=== PATIENT | female | born 1940 | race Caucasian/White ===

== ENCOUNTER 2016-05-28 13:36 | Emergency (ER) | payer MEDICARE ==
--- NOTE | 2016-05-28 13:59 | ED ---
General Adult HPI - General Chief complaint: Arrhythmia/Palpitations Stated complaint: AFIB Time Seen by Provider: 05/28/16 13:56 Source: patient, family, EMS, RN notes reviewed, old records reviewed Mode of arrival: EMS Limitations: no limitations - History of Present Illness Initial comments: This is a 75-year-old female ER for evaluation of possible arrhythmia. Patient doesn't history of high blood pressure, prediabetes, no history of smoking, no history of stroke, patient coming in today withno complaints no chest pain the first of breath no palpitations. Patient states she has history of atrial premature beats, PACs, patient states she was sent in today after surgery and reevaluation regarding possible arrhythmia seen on rhythm strip at her ear nose and throat doctor's office. Again at this time patient remains without complaint, not on any new medications and has not stopped taking any of her prior medication - Related Data Home Medications Medication Instructions Recorded Confirmed Aspirin EC [Ecotrin Low Dose] 81 mg PO DAILY 05/28/16 05/28/16 Calcium Carbonate [Calcium] 600 mg PO DAILY 05/28/16 05/28/16 Cholecalciferol [Vitamin D3] 2,000 unit PO DAILY 05/28/16 05/28/16 Chromium Picolinate 200 mcg PO DAILY 05/28/16 05/28/16 Cinnamon Bark [Cinnamon] 500 mg PO DAILY 05/28/16 05/28/16 Cinthya-C With Bioflavonoids 1 tab PO DAILY 05/28/16 05/28/16 Lisinopril-Hctz 10-12.5 mg 1 tab PO DAILY 05/28/16 05/28/16 [Zestoretic 10-12.5] Lutein 20 mg PO DAILY 05/28/16 05/28/16 Magnesium Oxide [Mag-Ox] 500 mg PO DAILY 05/28/16 05/28/16 Multivitamins, Thera [Multivitamin] 1 tab PO DAILY 05/28/16 05/28/16 PARoxetine [Paxil] 10 mg PO DAILY 05/28/16 05/28/16 Pravastatin Sodium [Pravachol] 40 mg PO DAILY 05/28/16 05/28/16 Allergies Allergy/AdvReac Type Severity Reaction Status Date / Time No Known Allergies Allergy Verified 05/28/16 14:12 Review of Systems ROS Statement: Those systems with pertinent positive or pertinent negative responses have been documented in the HPI. ROS Other: All systems not noted in ROS Statement are negative. Past Medical History Past Medical History: Hyperlipidemia, Hypertension Additional Past Medical History / Comment(s): PALPITATIONS-BBB History of Any Multi-Drug Resistant Organisms: None Reported Past Surgical History: Section Additional Past Surgical History / Comment(s): SINUS SURGERY, CARDIAC ABLATION FOR PVC Past Psychological History: No Psychological Hx Reported Smoking Status: Never smoker Past Alcohol Use History: None Reported Past Drug Use History: None Reported General Exam Limitations: no limitations General appearance: alert, in no apparent distress Head exam: Present: atraumatic, normocephalic, normal inspection Eye exam: Present: normal appearance, PERRL, EOMI. Absent: scleral icterus, conjunctival injection, periorbital swelling ENT exam: Present: normal exam, mucous membranes moist Neck exam: Present: normal inspection. Absent: tenderness, meningismus, lymphadenopathy Respiratory exam: Present: normal lung sounds bilaterally. Absent: respiratory distress, wheezes, rales, rhonchi, stridor Cardiovascular Exam: Present: regular rate, normal rhythm, normal heart sounds. Absent: systolic murmur, diastolic murmur, rubs, gallop, clicks GI/Abdominal exam: Present: soft, normal bowel sounds. Absent: distended, tenderness, guarding, rebound, rigid Extremities exam: Present: normal inspection, full ROM, normal capillary refill. Absent: tenderness, pedal edema, joint swelling, calf tenderness Back exam: Present: normal inspection Neurological exam: Present: alert, oriented X3, CN II-XII intact Psychiatric exam: Present: normal affect, normal mood Skin exam: Present: warm, dry, intact, normal color. Absent: rash Course Vital Signs 05/28/16 13:42 Temperature 98.1 F Pulse Rate 64 Respiratory 20 Rate Blood Pressure 142/74 O2 Sat by Pulse 94 L Oximetry - Reevaluation(s) Reevaluation #1: 05/28/16 14:21 Patient remains completely asymptomatic Reevaluation #2: 05/28/16 14:21 Per patient's records patient was told she may have a flutter based on rhythm strip at ENT office EKG Findings - EKG Comments: EKG Findings:: EKG shows normal sinus rhythm rate of 70, AL 182, QRS 90, QTC 429 Medical Decision Making - Medical Decision Making 75. Urinalysis suspicious rhythm strip at her ENT appointment today. Patient has no complaints, storeroom is without complaint, her EKG here is normal, no A. fib or flutter, no arrhythmia, patient will be discharged to follow-up with cardiology Disposition Clinical Impression: Arrhythmia Disposition: HOME SELF-CARE Condition: Good Instructions: Palpitations (ED) Referrals: Goldie Nunez MD [STAFF PHYSICIAN] - 1-2 days
[2016-05-28 14:38] VITALS: PULSE 67
[2016-05-28 14:51] VITALS: BP 154/68; RESP 16; TEMP 97.1
== END 2016-05-28 14:50 | disposition home or self-care (01) ==
LOC: EC 13:36
DX: I49.9 Cardiac arrhythmia, unspecified (principal); I10 Essential (primary) hypertension; E78.5 Hyperlipidemia, unspecified; Z79.82 Long term (current) use of aspirin; Z79.899 Other long term (current) drug therapy
CPT/HCPCS: 93005; 99284

== ENCOUNTER 2017-04-26 06:57 | Day surgery (SDC) | payer MEDICARE ==
[2017-04-22 13:28] VITALS: BMI 22.4
[~2017-04-26 06:57] MED LIST: LACTATED RINGERS 1,000 ML IV SCH
[2017-04-26 07:29] VITALS: RESP 16; TEMP 97.2
[2017-04-26 07:31] LABS: Glucose,Whole Blood 92 mg/dL (75-99)
[2017-04-26] MEDS ORDERED: GLYCOPYRROLATE 0.2 MG/ML 2 ML VIAL ONE (07:50)
[2017-04-26] MEDS ORDERED: PROPOFOL 10 MG/ML 20 ML VIAL IV ONE (07:50)
[2017-04-26] MEDS ORDERED: GLUCAGON 1 MG/ML VIAL ONE (07:50)
--- NOTE | 2017-04-26 07:55 | P.GSHP ---
History of Present Illness H&P Date: 04/26/17 Chief Complaint: Screening colonoscopy, history of diverticulitis This is a 76-year-old female for from Dr. cordoba. Patient is today for screening colonoscopy. Patient history of diverticulitis. Past Medical History Past Medical History: Diabetes Mellitus, Hyperlipidemia, Hypertension Additional Past Medical History / Comment(s): PALPITATIONS-BBB. RECENT DX DIABETES-DIET CONTROL AT THIS TIME History of Any Multi-Drug Resistant Organisms: None Reported Past Surgical History: Cardiac Ablation, Section Additional Past Surgical History / Comment(s): SINUS SURGERY, CARDIAC ABLATION FOR PVC. COLONOSCOPY Past Anesthesia/Blood Transfusion Reactions: No Reported Reaction Smoking Status: Never smoker - Past Family History Mother Family Medical History: No Reported History Medications and Allergies Home Medications Medication Instructions Recorded Confirmed Type Aspirin EC [Ecotrin Low Dose] 81 mg PO DAILY 05/28/16 04/26/17 History Calcium Carbonate [Calcium] 600 mg PO DAILY 05/28/16 04/26/17 History Cholecalciferol [Vitamin D3] 2,000 unit PO DAILY 05/28/16 04/26/17 History Chromium Picolinate 200 mcg PO DAILY 05/28/16 04/26/17 History Cinnamon Bark [Cinnamon] 500 mg PO DAILY 05/28/16 04/26/17 History Lutein 20 mg PO DAILY 05/28/16 04/26/17 History Magnesium Oxide [Mag-Ox] 500 mg PO DAILY 05/28/16 04/26/17 History Multivitamins, Thera [Multivitamin] 1 tab PO DAILY 05/28/16 04/26/17 History PARoxetine [Paxil] 10 mg PO DAILY 05/28/16 04/26/17 History Pravastatin Sodium [Pravachol] 40 mg PO DAILY 05/28/16 04/26/17 History Lisinopril-Hctz 20-12.5 mg 1 tab PO DAILY 04/22/17 04/26/17 History [Zestoretic 20-12.5] amLODIPine [Norvasc] 2.5 mg PO DAILY 04/22/17 04/26/17 History Allergies Allergy/AdvReac Type Severity Reaction Status Date / Time No Known Allergies Allergy Verified 04/22/17 13:21 Surgical - Exam Vital Signs Temp Pulse Resp BP Pulse Ox 97.2 F L 47 L 16 169/75 99 04/26/17 07:21 04/26/17 07:21 04/26/17 07:21 04/26/17 07:21 04/26/17 07:21 - General well developed, no distress - Eyes PERRL - ENT normal pinna - Neck no masses - Respiratory normal expansion - Cardiovascular Rhythm: regular - Abdomen Abdomen: soft, non tender Assessment and Plan Assessment: We'll perform screening colonoscopy.
--- NOTE | 2017-04-26 08:28 | P.OP ---
Date of Procedure: 04/26/17 Preoperative Diagnosis: Diverticulitis Screening colonoscopy Postoperative Diagnosis: Dear diverticulosis of sigmoid and left colon Cecum not visualized Tortuous colon Implants: Colonoscopy Anesthesia: MAC Surgeon: Jason Mckay Pathology: none sent Condition: stable Disposition: PACU Description of Procedure: Patient's placed on the endoscopy table lateral position. She received IV sedation. Digital rectal exam was performed which revealed no abnormalities. Flexible colonoscope was then placed patient anus passed with colon. The colon was quite tortuous. The scope could not be placed in the cecum secondary to very tortuous bowel. Scope was withdrawn the transverse colon appeared normal. In the descending colon there was significant diverticular changes. In the sigmoid colon there is extensive diverticular changes without evidence of diverticular scarring of the sigmoid colon. Scope was then brought back the rectum and this appeared normal. The scope was withdrawn for patient.
[2017-04-26 09:15] VITALS: BP 160/70; PULSE 66
== END 2017-04-26 09:28 | disposition home or self-care (01) ==
LOC: ORWHC2ENDO 06:57
PROVIDERS: ATTEND Surgery
DX: Z12.11 Encounter for screening for malignant neoplasm of colon (principal); K63.89 Other specified diseases of intestine; K57.30 Diverticulosis of large intestine without perforation or abscess without bleeding; I49.1 Atrial premature depolarization; E11.9 Type 2 diabetes mellitus without complications; E78.5 Hyperlipidemia, unspecified; I10 Essential (primary) hypertension; Z79.82 Long term (current) use of aspirin; Z79.899 Other long term (current) drug therapy; Z87.19 Personal history of other diseases of the digestive system
CPT/HCPCS: G0121; J1610; J2704

== ENCOUNTER 2017-11-25 17:15 | Emergency (ER) | payer MEDICARE ==
[2017-11-25 17:42] VITALS: TEMP 98.6
[2017-11-25 19:57] VITALS: BP 198/74; PULSE 58; RESP 16
--- NOTE | 2017-11-25 20:20 | ED ---
General Adult HPI - General Chief complaint: Recheck/Abnormal Lab/Rx Stated complaint: Abnormal Labs Time Seen by Provider: 11/25/17 19:02 Source: patient Mode of arrival: ambulatory Limitations: no limitations - History of Present Illness Initial comments: Patient is a [age]-year-old female presenting for abnormal labs. Patient states that she sees an outside neurologist and that she has been worked up for polymyalgia rheumatica and that she has been decreased and steroids. She saw the neurologist today and states that the ESR was elevated to greater than 20 and the CRP was around 2 and was sent here for consideration for temporal arteritis. She denies any vision changes and her ophthalmologic exam was performed at the neurologist office today and noted to be negative for significant abnormalities. She states that she does currently have a headache which is not the worst headache of her life and that it is been going on for many years worsening over the last couple months. She states that the headache is an achy sensation in her forehead. - Related Data Home Medications Medication Instructions Recorded Confirmed Calcium Carbonate [Calcium] 1,200 mg PO DAILY 05/28/16 11/25/17 Cholecalciferol [Vitamin D3] 2,000 unit PO DAILY 05/28/16 11/25/17 Chromium Picolinate 200 mcg PO DAILY 05/28/16 11/25/17 Cinnamon Bark [Cinnamon] 500 mg PO DAILY 05/28/16 11/25/17 Lutein 20 mg PO DAILY 05/28/16 11/25/17 Multivitamins, Thera [Multivitamin 1 tab PO DAILY 05/28/16 11/25/17 (formulary)] PARoxetine [Paxil] 10 mg PO DAILY 05/28/16 11/25/17 Pravastatin Sodium [Pravachol] 40 mg PO HS 05/28/16 11/25/17 Lisinopril-Hctz 20-12.5 mg 1 tab PO DAILY 04/22/17 11/25/17 [Zestoretic 20-12.5] Magnesium Citrate 125 mg PO DAILY 05/17/17 11/25/17 Mk7 1 tab PO DAILY 05/17/17 11/25/17 Strontium 1 tab PO DAILY 05/17/17 11/25/17 Ubiquinol 100 mg PO DAILY 05/17/17 11/25/17 amLODIPine [Norvasc] 5 mg PO DAILY 05/17/17 11/25/17 Calcitonin Nasal [Fortical 1 spray NASAL DAILY 11/25/17 11/25/17 (Miacalcin)] Propylene Glycol/Peg 400 [Systane 1 drop BOTH EYES DAILY 11/25/17 11/25/17 Ultra 0.4-0.3% Eye Drp] Sodium Chloride 5% Ophth Oint 1 applic BOTH EYES DAILY 11/25/17 11/25/17 [Maris 128] predniSONE 2.5 mg PO DAILY 11/25/17 11/25/17 Previous Rx's Medication Instructions Recorded predniSONE 60 mg PO DAILY 5 Days #15 tab 11/25/17 Allergies Allergy/AdvReac Type Severity Reaction Status Date / Time No Known Allergies Allergy Verified 11/25/17 19:14 Review of Systems ROS Statement: Those systems with pertinent positive or pertinent negative responses have been documented in the HPI. Constitutional: Negative for chills, fatigue and fever. HENT: Negative for congestion. Respiratory: Negative for chest tightness, shortness of breath and wheezing. Negative for cough Cardiovascular: Negative for chest pain and palpitations. Gastrointestinal: Negative for abdominal pain. Negative for abdominal distention , diarrhea, nausea and vomiting. Genitourinary: Negative for dysuria. Musculoskeletal: Negative for back pain, neck pain and neck stiffness. Skin: Negative for color change. Neurological: Negative for dizziness, speech difficulty, weakness and light- headedness. Positive for headache Psychiatric/Behavioral: Negative for agitation and confusion. Negative for anxiety ROS Other: All systems not noted in ROS Statement are negative. Past Medical History Past Medical History: Diabetes Mellitus, Hyperlipidemia, Hypertension Additional Past Medical History / Comment(s): PALPITATIONS-BBB. polymyalgia rheumatica History of Any Multi-Drug Resistant Organisms: None Reported Past Surgical History: Cardiac Ablation, Section Additional Past Surgical History / Comment(s): SINUS SURGERY, CARDIAC ABLATION FOR PVC. COLONOSCOPY, removal of melanoma Past Anesthesia/Blood Transfusion Reactions: No Reported Reaction Past Psychological History: Anxiety Smoking Status: Never smoker Past Alcohol Use History: None Reported Past Drug Use History: None Reported - Past Family History Mother Family Medical History: No Reported History General Exam - General Exam Comments Initial Comments: Constitutional: Pt is oriented to person, place, and time. Pt appears well- developed and well-nourished. No distress. HENT: Head: Normocephalic and atraumatic. Eyes: EOM are normal. Pupils 3 mm bilaterally and reactive. Neck: Normal range of motion. Neck supple. Cardiovascular: Normal rate, regular rhythm, S1 normal, S2 normal and normal heart sounds. Exam reveals no gallop and no friction rub. No murmur heard. Pulmonary/Chest: Effort normal and breath sounds normal. No tachypnea and no bradypnea. No respiratory distress. No wheezes or rales noted. Abdominal: Soft. Bowel sounds are normal. Pt exhibits no shifting dullness, no distension, no pulsatile liver, no fluid wave, no abdominal bruit and no ascites. There is no tenderness. There is no rigidity, no rebound, no guarding, no tenderness at McBurney's point and negative Srinivasan's sign. Musculoskeletal: Normal range of motion. Neurological: Pt is alert and oriented to person, place, and time. No cranial nerve deficit. No tenderness to palpation of the temporal areas. Skin: Skin is warm and dry. No rash noted. Pt is not diaphoretic. No erythema. No pallor. Psychiatric: Pt has a normal mood and affect. Pt behavior is normal. Thought content normal. Limitations: no limitations Course Vital Signs 11/25/17 11/25/17 11/25/17 17:36 19:16 19:56 Temperature 98.6 F 98.6 F Pulse Rate 61 64 58 L Respiratory 18 18 16 Rate Blood Pressure 140/53 210/81 198/74 O2 Sat by Pulse 99 97 100 Oximetry Medical Decision Making - Medical Decision Making Case is discussed with the patient's neurologist, Dr. Scales, and it was mutually decided that the patient should be likely placed in observation. It is explained to the patient that this is the recommendation and that there is high enough suspicion for temporal arteritis and the long-term effects such as blindness that could result if the condition is not treated, that she should be placed in observation. However, patient was not agreeable to this decision and multiple attempts were made to reach the patient's shipping assistant. However, this could not be done and patient currently declined admission to hospital. Therefore the patient signed out AGAINST MEDICAL ADVICE and expressed understanding that leaving could result in , disability. Nonetheless, the patient was given a prescription for steroids so that she could begin treatment immediately. Patient was advised to return to emergency department if symptoms worsened and follow up with neurology/rheumatology in the next 1-2 days. Patient was agreeable plan. Disposition Clinical Impression: Headache, Elevated erythrocyte sedimentation rate, Elevated C-reactive protein (CRP), Hypertension Disposition: Left Against Medical Advice Condition: Good Prescriptions: predniSONE 60 mg PO DAILY 5 Days #15 tab Referrals: Luis Eduardo Villalba MD [Primary Care Provider] - 1-2 days Time of Disposition: 20:19
== END 2017-11-25 20:31 | disposition left against medical advice (07) ==
LOC: EC 17:15
DX: I10 Essential (primary) hypertension (principal); R70.0 Elevated erythrocyte sedimentation rate; R79.82 Elevated C-reactive protein (CRP); R51 Headache; E78.5 Hyperlipidemia, unspecified; F41.9 Anxiety disorder, unspecified; M35.3 Polymyalgia rheumatica; Z85.820 Personal history of malignant melanoma of skin; Z79.52 Long term (current) use of systemic steroids; Z79.899 Other long term (current) drug therapy; Z53.29 Procedure and treatment not carried out because of patient's decision for other reasons
CPT/HCPCS: 99283

== ENCOUNTER 2018-06-17 17:46 | Observation (INO) | payer MEDICARE ==
[2018-06-17] MEDS ORDERED: ASPIRIN 81 MG PO STA (18:09)
--- NOTE | 2018-06-17 18:12 | ED ---
Chest Pain HPI - General Chief Complaint: Chest Pain Stated Complaint: Chest pressure Time Seen by Provider: 06/17/18 17:56 Source: patient Mode of arrival: ambulatory Limitations: no limitations - History of Present Illness Initial Comments: Patient is a 77-year-old female presenting for chest pain. The patient states that the chest pressure started around noon it is been constant sensation without radiation or modifying factors. His is associated with nausea but no infectious type symptoms such as as fever or chills or coughing. She states that it is been several years since she had a cardiac catheterization and she has not had this pain before. - Related Data Home Medications Medication Instructions Recorded Confirmed Cinnamon Bark [Cinnamon] 500 mg PO DAILY 05/28/16 06/17/18 Lutein 10 mg PO BID 05/28/16 06/17/18 Multivitamins, Thera [Multivitamin 1 tab PO DAILY 05/28/16 06/17/18 (formulary)] PARoxetine [Paxil] 10 mg PO Q48H 05/28/16 06/17/18 Pravastatin Sodium [Pravachol] 40 mg PO HS 05/28/16 06/17/18 Lisinopril-Hctz 20-12.5 mg 1 tab PO DAILY 04/22/17 06/17/18 [Zestoretic 20-12.5] amLODIPine [Norvasc] 5 mg PO DAILY 05/17/17 06/17/18 Propylene Glycol/Peg 400 [Systane 1 drop BOTH EYES DAILY 11/25/17 06/17/18 Ultra 0.4-0.3% Eye Drp] Calcitonin Nasal [Fortical 1 spray EA NOSTRIL DAILY 06/17/18 06/17/18 (Miacalcin)] Calcium Citrate/Vitamin D3 1 tab PO BID 06/17/18 06/17/18 [Calcitrate + Vit D Caplet] Magnesium 200 mg PO DAILY 06/17/18 06/17/18 Allergies Allergy/AdvReac Type Severity Reaction Status Date / Time No Known Allergies Allergy Verified 06/17/18 18:13 Review of Systems ROS Statement: Those systems with pertinent positive or pertinent negative responses have been documented in the HPI. Constitutional: Negative for chills, fatigue and fever. HENT: Negative for congestion. Respiratory: Negative for chest tightness, shortness of breath and wheezing. Negative for cough Cardiovascular: Positive for chest pressure and palpitations. Gastrointestinal: Negative for abdominal pain. Negative for abdominal distention, diarrhea, and vomiting. Positive for nausea Genitourinary: Negative for dysuria. Musculoskeletal: Negative for back pain, neck pain and neck stiffness. Skin: Negative for color change. Neurological: Negative for dizziness, speech difficulty, weakness and light- headedness. Psychiatric/Behavioral: Negative for agitation and confusion. Negative for anxiety ROS Other: All systems not noted in ROS Statement are negative. EKG Findings - EKG Comments: EKG Findings:: EKG shows sinus bradycardia with a rate of 59 bpm, [place] interval 170, QRS 88, QTC 407. There are no significant ST depressions or elevations. Past Medical History Past Medical History: Diabetes Mellitus, Hyperlipidemia, Hypertension Additional Past Medical History / Comment(s): PALPITATIONS-BBB. polymyalgia rheumatica History of Any Multi-Drug Resistant Organisms: None Reported Past Surgical History: Cardiac Ablation, Section Additional Past Surgical History / Comment(s): SINUS SURGERY, CARDIAC ABLATION FOR PVC. COLONOSCOPY, removal of melanoma Past Anesthesia/Blood Transfusion Reactions: No Reported Reaction Past Psychological History: Anxiety Smoking Status: Never smoker Past Alcohol Use History: None Reported Past Drug Use History: None Reported - Past Family History Mother Family Medical History: No Reported History General Exam - General Exam Comments Initial Comments: Constitutional: Pt appears well-developed and well-nourished. No distress. Head: Normocephalic and atraumatic. Eyes: EOM are normal. Neck: Normal range of motion. Neck supple. Cardiovascular: Normal rate, regular rhythm, S1 normal, S2 normal and normal heart sounds. Exam reveals no gallop and no friction rub. No murmur heard. Pulmonary/Chest: Effort normal and breath sounds normal. No tachypnea and no bradypnea. No respiratory distress. No wheezes or rales noted. Abdominal: Soft. Bowel sounds are normal. Pt exhibits no shifting dullness, no distension, no pulsatile liver, no fluid wave, no abdominal bruit and no ascites. There is no rigidity, no rebound, no guarding, no tenderness at McBurney's point and negative Srinivasan's sign. There is no tenderness. Musculoskeletal: Normal range of motion. Neurological: Pt is alert and oriented to person, place, and time. No cranial nerve deficit. Skin: Skin is warm and dry. No rash noted. Pt is not diaphoretic. No erythema. No pallor. Psychiatric: Pt has a normal mood and affect. Pt behavior is normal. Thought content normal. Limitations: no limitations Course Vital Signs 06/17/18 17:52 Temperature 98.2 F Pulse Rate 64 Respiratory 18 Rate Blood Pressure 162/68 O2 Sat by Pulse 98 Oximetry Chest Pain MDM - MDM Laboratory studies showed that there was no significant leukocytosis, which like derangements and from a cardiac standpoint, EKG had no significant abnormalities and d-dimer and troponin were both negative. However, because of the patient's significant risk factors, is felt that the patient should be placed in observation for continued evaluation and treatment. The time of disposition, patient was well-appearing and in no acute distress.Explained all labs and diagnostic test results and that we will admit patient to hospital. Pt is agreeable to plan and case has been discussed with Dr. Irizarry and they agree to accept the pt. Disposition Clinical Impression: Chest pain Disposition: ADMITTED IP TO THIS HOSP Condition: Fair Referrals: Luis Eduardo Villalba MD [Primary Care Provider] - 1-2 days Decision to Admit Reason: Admit from EC Decision Date: 06/17/18 Decision Time: 20:07
[2018-06-17 18:50] LABS: Basophils # (A) 0.1 k/uL (0-0.2); Basophils % (A) 1 %; Eosinophils # (A) 0.2 k/uL (0-0.7); Eosinophils % (A) 3 %; HCT 39.4 % (34.0-46.0); HGB 13.1 gm/dL (11.4-16.0); Lymphocytes # (A) 2.2 k/uL (1.0-4.8); Lymphocytes % (A) 27 %; MCHC 33.1 g/dL (31.0-37.0); MCV 93.5 fL (80.0-100.0); Mean Platelet Volume 6.3; Monocytes # (A) 0.6 k/uL (0-1.0); Monocytes % (A) 7 %; Neutrophils % (A) 61 %; Platelet Count 320 k/uL (150-450); RBC 4.22 m/uL (3.80-5.40); RDW 13.7 % (11.5-15.5); WBC 8.2 k/uL (3.8-10.6)
[2018-06-17 19:02] LABS: ALT 40 U/L (9-52); AST 19 U/L (14-36); Albumin 3.9 g/dL (3.5-5.0); Alkaline Phosphatase 43 U/L (38-126); Anion Gap 7 mmol/L; Blood Urea Nitrogen 29 mg/dL (7-17); Calcium 9.9 mg/dL (8.4-10.2); Carbon Dioxide 29 mmol/L (22-30); Chloride 100 mmol/L (98-107); Glucose 110 mg/dL (74-99); Magnesium 1.9 mg/dL (1.6-2.3); Potassium 4.4 mmol/L (3.5-5.1); Sodium 136 mmol/L (137-145); Total Bilirubin 0.2 mg/dL (0.2-1.3); Total Protein 6.8 g/dL (6.3-8.2)
[2018-06-17 19:11] LABS: INR 0.9 (<1.2); Prothrombin Time 9.5 sec (9.0-12.0)
[2018-06-17 19:18] LABS: Partial Thromboplastin Time 20.6 sec (22.0-30.0)
--- NOTE | 2018-06-17 19:25 | XR ---
EXAMINATION TYPE: XR chest 2V DATE OF EXAM: 06/17/2018 COMPARISON: 07/19/2013 HISTORY: Chest pressure and hypertension TECHNIQUE: Frontal and lateral views of the chest are obtained. FINDINGS: There is no focal air space opacity, pleural effusion, or pneumothorax seen. Biapical luce ncy suggests a component of underlying COPD. The cardiac silhouette size is within normal limits. T he osseous structures are intact. IMPRESSION: No acute cardiopulmonary process.
[2018-06-17] MEDS ORDERED: MORPHINE SULFATE 4 MG/ML SYRINGE IV PRN (20:04)
[2018-06-17] MEDS ORDERED: NITROGLYCERIN SL TABS 0.4 MG TAB SUBLINGUAL PRN (20:04)
[2018-06-17 21:04] VITALS: RESP 16; BMI 22.1
[2018-06-17] MEDS ORDERED: PARoxetine 10 MG TAB PO SCH (23:30)
[2018-06-17] MEDS ORDERED: PRAVASTATIN SODIUM 40 MG TAB PO SCH (23:30)
[2018-06-17] MEDS ORDERED: MELATONIN 1 MG TAB PO SCH (23:30)
[2018-06-18 06:43] LABS: Glucose,Whole Blood 108 mg/dL (75-99)
[2018-06-18] MEDS ORDERED: PROPYLENE GLYCOL BOTH EYES SCH (09:00)
[2018-06-18] MEDS ORDERED: CALCITONIN 200 USP/1 NASAL SPRAY 3.7ML BTL INTRANASAL SCH (09:00)
[2018-06-18] MEDS ORDERED: PEG BOTH EYES SCH (09:00)
[2018-06-18] MEDS ORDERED: LISINOPRIL-HCTZ 20-12.5 MG 1 EACH TAB PO SCH (09:00)
[2018-06-18] MEDS ORDERED: MAGNESIUM OXIDE 400 MG TAB PO SCH (09:00)
[2018-06-18] MEDS ORDERED: amLODIPine 5 MG TAB PO SCH (09:00)
[2018-06-18] MEDS ORDERED: ASPIRIN 325 MG TAB PO SCH (09:00)
[2018-06-18 09:11] LABS: Cholesterol 171 mg/dL (<200); HDL Cholesterol 75 mg/dL (40-60); LDL Cholesterol,Calculated 88 mg/dL (0-99); Triglycerides 40 mg/dL (<150)
[2018-06-18 11:42] LABS: Glucose,Whole Blood 118 mg/dL (75-99)
[2018-06-18 12:07] VITALS: BP 131/69; PULSE 65; TEMP 98.3
--- NOTE | 2018-06-18 12:58 | P.CRDCN ---
History of Present Illness History of present illness: This is a pleasant 77-year-old female past medical history significant for hypertension, dyslipidemia, diabetes mellitus and PVCs status post ablation. She denies history of coronary artery disease. She follows with Dr. Banegas. We have been asked to see her in consultation for symptoms of chest pain. She complains of an achy weak sensation in the left precordial region and under the left axilla. She states she has been having this pain for many years off and on. The discomfort usually comes when she raises her arms up above her head. However, yesterday she started feeling nauseated along with the pain which is a new feeling for her. Through the night she has not had anymore chest discomfort but has ongoing nausea and one episode she thought was going to be diarrhea but turned out to be a soft stool. She is seen and examined resting comfortably in bed in no acute distress. EKG reveals sinus bradycardia with poor R-wave progression. Chest x-ray is negative for an acute cardiopulmonary process. Laboratory data reviewed, WBC 8.2, hemoglobin 13.1, platelets 320, sodium 136, potassium 4.4, creatinine 0.62, magnesium 1.9, cardiac enzymes negative 3, NT proBNP 49, LDL 88. Current cardiac medications include lisinopril/HCTZ 20/12.5 mg daily, amlodipine 5 mg daily and pravastatin 40 mg daily. She underwent cardiac catheterization in 2011 revealing mild intimal disease involving the proximal left circumflex and OM approximately 20%. At the time of my exam: CONSTITUTIONAL: Denies fever. Denies chills. EYES: Denies blurred vision. Denies vision changes. Denies eye pain. EARS, NOSE, MOUTH & THROAT: Denies headache. Denies sore throat. Denies ear pain. CARDIOVASCULAR: Denies chest pain. Denies shortness of breath. Denies orthopnea. Denies PND. Denies palpitations. RESPIRATORY: Denies cough. GASTROINTESTINAL: Denies abdominal pain. Denies diarrhea. Denies constipation. Complains of nausea. Denies vomiting. MUSCULOSKELETAL: Denies myalgias. INTEGUMENTARY: Denies pruitis. Denies rash. NEUROLOGIC: Denies numbness. Denies tingling. Denies weakness. PSYCHIATRIC: Denies anxiety. Denies depression. ENDOCRINE: Denies fatigue. Denies weight change. Denies polydipsia. Denies polyurina. GENITOURINARY: Denies burning, hematuria or urgency with micturation. HEMATOLOGIC: Denies history of anemia. Denies bleeding. Blood pressure 121/59 heart rate 68 afebrile maintaining oxygen saturation on room air GENERAL: This is a 77-year-old female in no apparent distress at the time of my examination. HEENT: Head is atraumatic, normocephalic. Pupils are equal, round. Sclerae anicteric. Conjunctivae are clear. Mucous membranes of the mouth are moist. Neck is supple. There is no jugular venous distention. No carotid bruit is heard. LUNGS: Clear to auscultation no wheezes, rales or rhonchi. No chest wall tenderness is noted on palpation or with deep breathing. HEART: Regular rate and rhythm with systolic ejection murmur at the left sternal border, no rubs or gallops. S1 and S2 heard. ABDOMEN: Soft, nontender. Bowel sounds are heard. No organomegaly noted. EXTREMITIES: No evidence of peripheral edema and no calf tenderness noted. VASCULAR: Radial and dorsalis pedis pulses palpated, no evidence of clubbing. NEUROLOGIC: Patient is awake, alert and oriented x3. ASSESSMENT Chest pain, atypical. An acute coronary event has been ruled out. 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 Have requested she increased her activity and ambulation in the halls. Assess for exertional chest discomfort. If she develops exertional chest discomfort we recommend she remain in the hospital to undergo stress testing tomorrow morning. However she remains asymptomatic she may be discharged home to follow with her primary title insurance agent next week. Thank you kindly for this consultation. Nurse Practitioner note has been reviewed, I agree with a documented findings and plan of care. Patient was seen and examined. Past Medical History Past Medical History: Diabetes Mellitus, Hyperlipidemia, Hypertension Additional Past Medical History / Comment(s): PALPITATIONS-BBB. polymyalgia rheumatica History of Any Multi-Drug Resistant Organisms: None Reported Past Surgical History: Cardiac Ablation, Section Additional Past Surgical History / Comment(s): SINUS SURGERY, CARDIAC ABLATION FOR PVC x 3. COLONOSCOPY, removal of melanoma Past Anesthesia/Blood Transfusion Reactions: No Reported Reaction Past Psychological History: Anxiety Smoking Status: Never smoker Past Alcohol Use History: None Reported Past Drug Use History: None Reported - Past Family History Mother Family Medical History: No Reported History Medications and Allergies Home Medications Medication Instructions Recorded Confirmed Type Cinnamon Bark [Cinnamon] 500 mg PO DAILY 05/28/16 06/17/18 History Lutein 10 mg PO BID 05/28/16 06/17/18 History Multivitamins, Thera [Multivitamin 1 tab PO DAILY 05/28/16 06/17/18 History (formulary)] PARoxetine [Paxil] 10 mg PO Q48H 05/28/16 06/17/18 History Pravastatin Sodium [Pravachol] 40 mg PO HS 05/28/16 06/17/18 History Lisinopril-Hctz 20-12.5 mg 1 tab PO DAILY 04/22/17 06/17/18 History [Zestoretic 20-12.5] amLODIPine [Norvasc] 5 mg PO DAILY 05/17/17 06/17/18 History Propylene Glycol/Peg 400 [Systane 1 drop BOTH EYES DAILY 11/25/17 06/17/18 History Ultra 0.4-0.3% Eye Drp] Calcitonin Nasal [Fortical 1 spray EA NOSTRIL DAILY 06/17/18 06/17/18 History (Miacalcin)] Calcium Citrate/Vitamin D3 1 tab PO BID 06/17/18 06/17/18 History [Calcitrate + Vit D Caplet] Magnesium 200 mg PO DAILY 06/17/18 06/17/18 History Allergies Allergy/AdvReac Type Severity Reaction Status Date / Time No Known Allergies Allergy Verified 06/17/18 18:13 Physical Exam Vitals: Vital Signs Temp Pulse Pulse Pulse Resp BP BP 06/18/18 08:00 98.4 F 60 54 L 16 104/58 06/18/18 04:00 98.6 F 60 16 121/59 06/18/18 03:58 16 06/17/18 23:33 16 06/17/18 23:27 97.9 F 54 L 16 153/71 06/17/18 21:12 16 06/17/18 20:39 98.1 F 58 L 16 164/77 06/17/18 20:00 47 L 151/62 06/17/18 19:30 53 L 160/63 06/17/18 19:22 60 140/87 03/09/19 17:52 98.2 F 64 18 162/68 Pulse Ox 06/18/18 08:00 98 06/18/18 04:00 98 06/18/18 03:58 06/17/18 23:33 06/17/18 23:27 97 06/17/18 21:12 06/17/18 20:39 100 06/17/18 20:00 100 06/17/18 19:30 100 06/17/18 19:22 98 06/17/18 17:52 98 Intake and Output 06/17/18 06/18/18 06/18/18 21:59 06:59 14:59 Other: Voiding Method Toilet # Voids Weight Results 06/17/18 18:38 06/17/18 18:38 Cardiac Enzymes 06/17/18 06/17/18 06/18/18 Range/Units 18:38 18:38 00:26 AST 19 (14-36) U/L Troponin I <0.012 <0.012 (0.000-0.034) ng/mL Coagulation 06/17/18 Range/Units 18:38 PT 9.5 (9.0-12.0) sec APTT 20.6 L (22.0-30.0) sec CBC 06/17/18 Range/Units 18:38 WBC 8.2 (3.8-10.6) k/uL RBC 4.22 (3.80-5.40) m/uL Hgb 13.1 (11.4-16.0) gm/dL Hct 39.4 (34.0-46.0) % Plt Count 320 (150-450) k/uL Comprehensive Metabolic Panel 06/17/18 Range/Units 18:38 Sodium 136 L (137-145) mmol/L Potassium 4.4 (3.5-5.1) mmol/L Chloride 100 (98-107) mmol/L Carbon Dioxide 29 (22-30) mmol/L BUN 29 H (7-17) mg/dL Creatinine 0.62 (0.52-1.04) mg/dL Glucose 110 H (74-99) mg/dL Calcium 9.9 (8.4-10.2) mg/dL AST 19 (14-36) U/L ALT 40 (9-52) U/L Alkaline Phosphatase 43 (38-126) U/L Total Protein 6.8 (6.3-8.2) g/dL Albumin 3.9 (3.5-5.0) g/dL Current Medications Generic Name Dose Route Start Last Admin Trade Name Freq PRN Reason Stop Dose Admin Amlodipine Besylate 5 mg 06/18/18 09:00 Norvasc PO DAILY [facility] Aspirin 325 mg 06/18/18 09:00 Aspirin PO DAILY [facility] Calcitonin [place] 1 spray 06/18/18 09:00 Fortical INTRANASAL DAILY [facility] Lisinopril/HCTZ 1 each 06/18/18 09:00 Zestoretic 20-12.5 PO DAILY [facility] Magnesium Oxide 200 mg 06/18/18 09:00 Mag-Ox PO DAILY [facility] Melatonin 1 mg 06/17/18 23:30 06/18/18 00:04 Melatonin PO 1 mg HS KACI Administration Morphine Sulfate 4 mg 06/17/18 20:04 Morphine Sulfate (Inj) IV Q5M PRN Chest Pain Nitroglycerin 0.4 mg 06/17/18 20:04 Nitrostat SUBLINGUAL Q5M PRN Chest Pain Non-Formulary Medication 1 drop 06/18/18 09:00 Propylene Glycol/Peg 400 [Systane Ultra 0.4-0.3% Eye Drp] BOTH EYES DAILY [facility] Paroxetine HCl 10 mg 06/17/18 23:30 06/17/18 23:44 Paxil PO Not Given Q48H [facility] Pravastatin Sodium 40 mg 06/17/18 23:30 06/18/18 00:04 Pravachol PO 40 mg HS KACI Administration Intake and Output 06/17/18 06/18/18 06/18/18 21:59 06:59 14:59 Other: Voiding Method Toilet # Voids Weight 06/17/18 18:38 06/17/18 18:38
--- NOTE | 2018-06-18 13:51 | P.HPIM ---
History of Present Illness H&P Date: 06/18/18 Chief Complaint: Chest pain This will serve both as an H&P and discharge summary. This is a 77-year-old female, patient of Dr. Iqbal, with a known history of hypertension, dyslipidemia, diabetes, PVCs status post ablation. Patient reports yesterday around noon she began feeling some chest "weakness" and pain with some nausea. She reports pain did radiate to under her left breast. She does have a history of a cardiac catheterization in 2011, last stress test was around 2 years ago. She does follow up with Dr. Geiger on regular basis. Serial troponins have been negative, BNP 49, cholesterol 171, triglycerides 40, LDL 88, HDL 75. EKG reveals sinus bradycardia with poor R- wave progression. Chest x-ray is negative for any acute cardiopulmonary process. Vital signs are stable, blood pressure 131/69, heart rate in the 60s, afebrile pulse ox 96% on room air. Patient reports today that her chest pain is gone, she denies any palpitations, shortness of breath, nausea or vomiting. Cardiology has been consulted, acute coronary event has been ruled out. She'll be discharged home with follow-up with her primary coding tech next week. Review of Systems Constitutional: Denies chills, Denies fever, Denies weakness Ears, nose, mouth and throat: Denies dysphagia, Denies epistaxis, Denies headache, Denies nasal congestion, Denies nasal discharge, Denies sinus pain, Denies sinus pressure Cardiovascular: Denies chest pain, Denies dyspnea on exertion, Denies edema, Denies irregular heart beat, Denies leg edema, Denies lightheadedness, Denies orthopnea, Denies palpitations, Denies rapid heart beat, Denies shortness of breath, Denies syncope Respiratory: Denies congestion, Denies cough, Denies pain, Denies wheezing Gastrointestinal: Denies constipation, Denies dyspepsia, Denies heartburn, Denies loss of appetite, Denies nausea, Denies vomiting Musculoskeletal: Denies atrophy, Denies frequent falls, Denies gait dysfunction, Denies hot joints, Denies leg numbness/tingling, Denies muscle weakness Integumentary: Denies dryness, Denies growths, Denies lesions, Denies wounds Neurological: Denies balance difficulties, Denies confusion, Denies gait dysfunction, Denies headaches, Denies memory loss, Denies numbness, Denies paralysis, Denies seizures, Denies syncope, Denies vertigo, Denies weakness Endocrine: Denies fatigue, Denies flushing, Denies nocturia, Denies weight change Past Medical History Past Medical History: Diabetes Mellitus, Hyperlipidemia, Hypertension Additional Past Medical History / Comment(s): PALPITATIONS-BBB. polymyalgia rheumatica History of Any Multi-Drug Resistant Organisms: None Reported Past Surgical History: Cardiac Ablation, Section Additional Past Surgical History / Comment(s): SINUS SURGERY, CARDIAC ABLATION FOR PVC x 3. COLONOSCOPY, removal of melanoma Past Anesthesia/Blood Transfusion Reactions: No Reported Reaction Past Psychological History: Anxiety Smoking Status: Never smoker Past Alcohol Use History: None Reported Past Drug Use History: None Reported - Past Family History Mother Family Medical History: No Reported History Medications and Allergies Home Medications Medication Instructions Recorded Confirmed Type Cinnamon Bark [Cinnamon] 500 mg PO DAILY 05/28/16 06/17/18 History Lutein 10 mg PO BID 05/28/16 06/17/18 History Multivitamins, Thera [Multivitamin 1 tab PO DAILY 05/28/16 06/17/18 History (formulary)] PARoxetine [Paxil] 10 mg PO Q48H 05/28/16 06/17/18 History Pravastatin Sodium [Pravachol] 40 mg PO HS 05/28/16 06/17/18 History Lisinopril-Hctz 20-12.5 mg 1 tab PO DAILY 04/22/17 06/17/18 History [Zestoretic 20-12.5] amLODIPine [Norvasc] 5 mg PO DAILY 05/17/17 06/17/18 History Propylene Glycol/Peg 400 [Systane 1 drop BOTH EYES DAILY 11/25/17 06/17/18 History Ultra 0.4-0.3% Eye Drp] Calcitonin Nasal [Fortical 1 spray EA NOSTRIL DAILY 06/17/18 06/17/18 History (Miacalcin)] Calcium Citrate/Vitamin D3 1 tab PO BID 06/17/18 06/17/18 History [Calcitrate + Vit D Caplet] Magnesium 200 mg PO DAILY 06/17/18 06/17/18 History Allergies Allergy/AdvReac Type Severity Reaction Status Date / Time No Known Allergies Allergy Verified 06/17/18 18:13 Physical Exam Vitals: Vital Signs Temp Pulse Pulse Pulse Resp BP BP 06/18/18 12:00 98.3 F 65 16 131/69 06/18/18 08:00 98.4 F 60 54 L 16 104/58 06/18/18 04:00 98.6 F 60 16 121/59 06/18/18 03:58 16 06/17/18 23:33 16 06/17/18 23:27 97.9 F 54 L 16 153/71 06/17/18 21:12 16 06/17/18 20:39 98.1 F 58 L 16 164/77 06/17/18 20:00 47 L 151/62 06/17/18 19:30 53 L 160/63 06/17/18 19:22 60 140/87 06/17/18 17:52 98.2 F 64 18 162/68 Pulse Ox 06/18/18 12:00 96 06/18/18 08:00 98 06/18/18 04:00 98 06/18/18 03:58 06/17/18 23:33 06/17/18 23:27 97 06/17/18 21:12 06/17/18 20:39 100 06/17/18 20:00 100 06/17/18 19:30 100 06/17/18 19:22 98 06/17/18 17:52 98 Intake and Output 06/17/18 06/18/18 06/18/18 21:59 06:59 14:59 Other: Voiding Method Toilet # Voids Weight - Constitutional General appearance: cooperative, no acute distress - EENT Eyes: EOMI, PERRLA, normal appearance ENT: hearing grossly normal - Neck Neck: no lymphadenopathy, normal ROM, no rigidity, no thyromegaly - Respiratory Respiratory: bilateral: CTA, negative: diminished, dullness, rales, rhonchi, wheezing - Cardiovascular Rhythm: regular Heart sounds: normal: S1, S2 - Gastrointestinal General gastrointestinal: no distended, normal bowel sounds, no organomegaly, soft, no tenderness - Neurologic Neurologic: CNII-XII intact - Musculoskeletal Musculoskeletal: gait normal, strength equal bilaterally - Psychiatric Psychiatric: A&O x's 3, appropriate affect, intact judgment & insight Results CBC & Chem 7: 06/17/18 18:38 06/17/18 18:38 Labs: Abnormal Lab Results - Last 24 Hours (Table) 06/17/18 06/17/18 06/18/18 Range/Units 18:38 18:38 06:41 APTT 20.6 L (22.0-30.0) sec Sodium 136 L (137-145) mmol/L BUN 29 H (7-17) mg/dL Glucose 110 H (74-99) mg/dL POC Glucose (mg/dL) 108 H (75-99) mg/dL HDL Cholesterol (40-60) mg/dL 06/18/18 06/18/18 Range/Units 08:34 11:41 APTT (22.0-30.0) sec Sodium (137-145) mmol/L BUN (7-17) mg/dL Glucose (74-99) mg/dL POC Glucose (mg/dL) 118 H (75-99) mg/dL HDL Cholesterol 75 H (40-60) mg/dL Thrombosis Risk Factor Assmnt - Choose All That Apply Each Risk Factor Represents 3 Points: Age 75 years or older Thrombosis Risk Factor Assessment Total Risk Factor Score: 3 Thrombosis Risk Factor Assessment Level: Moderate Risk Assessment and Plan Plan: 1. Atypical chest pain. Serial troponins are negative, chest x-ray did not reveal any cardiopulmonary processes. Will follow up with primary cardiology as outpatient basis. 2. Hypertension. Continue on lisinopril/HCTZ 2012.5 mg and Norvasc 5mg daily. 3. Dyslipidemia. Continue pravastatin 40 mg at at bedtime. 4. Diabetes. Not currently on medications, on diet control. 5. PVCs, status post ablation. Stable. 6. Generalized anxiety disorder. Continue Paxil 10 mg. The above impression and plan of care have been discussed and directed by signing physician. Trena Jacinto nurse practitioner acting as scribe for signing physician.
== END 2018-06-18 12:32 | disposition home or self-care (01) ==
LOC: EC 17:46 → 1SOBS 20:08
PROVIDERS: ADMIT Family Medicine; ATTEND Family Medicine
DX: R07.89 Other chest pain (principal); I10 Essential (primary) hypertension; E78.5 Hyperlipidemia, unspecified; M35.3 Polymyalgia rheumatica; E11.9 Type 2 diabetes mellitus without complications; F41.1 Generalized anxiety disorder; I49.3 Ventricular premature depolarization; Z79.899 Other long term (current) drug therapy; Z85.820 Personal history of malignant melanoma of skin
CPT/HCPCS: 99285; 36415; 93005; 83880; 80061; 80053; 83735; 84484 ×2; 85025; 85610; 85730; 71046; G0378 ×2

== ENCOUNTER 2020-06-05 13:29 | Emergency (ER) | payer MEDICARE ==
[2020-06-05 13:33] VITALS: TEMP 98.2
--- NOTE | 2020-06-05 13:53 | ED ---
General Adult HPI - General Chief complaint: Arrhythmia/Palpitations Stated complaint: Low heart rate Time Seen by Provider: 06/05/20 13:38 Source: patient, family Mode of arrival: ambulatory Limitations: no limitations - History of Present Illness Initial comments: Dictation was produced using [employer] dictation software. please excuse any grammatical, word or spelling errors. This patient was cared for during a federal and state declared state of emergency secondary to Covid 19 Chief Complaint: 79-year-old female with known history of bradycardia presents with worsening weakness, shortness of breath and fatigue History of Present Illness: Patient is 79-year-old female she has established care with a sawmill manager Dr. Foster. She reports that over the last several days she's been having worsening weakness, fatigue and shortness of breath. She has known history of bradycardia and has been recommended by her sawmill manager to be evaluated for pacemaker for symptoms of bradycardia get worse. Patient states she was checking her heart rate over the last 48-72 hours and her heart rate would drop into the 40s. Patient has no pain complaints. Denies any swelling in her lower extremities. The ROS documented in this emergency department record has been reviewed and confirmed by me. Those systems with pertinent positive or negative responses have been documented in the HPI. All other systems are other negative and/or no ncontributory. PHYSICAL EXAM: General Impression: Alert and oriented x3, not in acute distress HEENT: Normocephalic atraumatic, extra-ocular movements intact, pupils equal and reactive to light bilaterally, mucous membranes moist. Cardiovascular: Bradycardic, no murmurs Chest: Able to complete full sentences, no retractions, no tachypnea, lungs clear to auscultation bilaterally Abdomen: abdomen soft, non-tender, non-distended, no organomegaly Musculoskeletal: Pulses present and equal in all extremities, no peripheral edema Motor: no focal deficits noted Neurological: CN II-XII grossly intact, no focal motor or sensory deficits noted Skin: Intact with no visualized rashes Psych: Normal affect and mood ED course: 79-year-old female presents to the emergency department for clinical presentation consistent with symptomatic bradycardia. Vital signs upon arrival shows heart rate of 50 cumbersome vital signs within acceptable limits. Limited evaluation obtained. CBC, metabolic panel is unremarkable. No electrolyte derangement. Troponins negative. TSH is normal. Chest x-ray is nonacute. Patient observed in emergency Department with persistent bradycardia into the 40s. It's been slower than she is used to. Discussed patient case with patient's sawmill manager Dr. Foster who believes that it is appropriate for patient to be admitted to observation in our hospital for cardiac monitoring and cardiology consultation. Patient does not want to be admitted to our hospital. She reports that she is been a patient of our local cardiologists however is unhappy with the care that she received from them. Disposition options were discussed with patient. She would prefer to go to a hospital that her sawmill manager has privileges at. She does not however want to take an ambulance there. at bedside had arranged for private vehicle to drive down [facility] by a friend or family member. Patient understands the risks of private vehicle transfer. EKG interpretation: Ventricular rate 48, sinus bradycardia,. Interval 190, QRS 84, QTC 396. No ME prolongation, no QTC prolongation, no ST or T-wave changes noted. EKG compared to 06/17/2018 showing no changes. Overall, this EKG is unremarkable Transfer was discussed with Dr. Wilkins at [facility] who will await patient's arrival. - Related Data Home Medications Medication Instructions Recorded Confirmed Cinnamon Bark [Cinnamon] 500 mg PO DAILY 05/28/16 06/17/18 Lutein 10 mg PO BID 05/28/16 06/17/18 Multivitamins, Thera [Multivitamin 1 tab PO DAILY 05/28/16 06/17/18 (formulary)] PARoxetine [Paxil] 10 mg PO Q48H 05/28/16 06/17/18 Pravastatin Sodium [Pravachol] 40 mg PO HS 05/28/16 06/17/18 Lisinopril-Hctz 20-12.5 mg 1 tab PO DAILY 04/22/17 06/17/18 [Zestoretic 20-12.5] amLODIPine [Norvasc] 5 mg PO DAILY 05/17/17 06/17/18 Propylene Glycol/Peg 400 [Systane 1 drop BOTH EYES DAILY 11/25/17 06/17/18 Ultra 0.4-0.3% Eye Drp] Calcitonin Nasal [Fortical 1 spray EA NOSTRIL DAILY 06/17/18 06/17/18 (Miacalcin)] Calcium Citrate/Vitamin D3 1 tab PO BID 06/17/18 06/17/18 [Calcitrate + Vit D Caplet] Magnesium 200 mg PO DAILY 06/17/18 06/17/18 Allergies Allergy/AdvReac Type Severity Reaction Status Date / Time No Known Allergies Allergy Verified 06/05/20 13:33 Review of Systems ROS Statement: Those systems with pertinent positive or pertinent negative responses have been documented in the HPI. ROS Other: All systems not noted in ROS Statement are negative. Past Medical History Past Medical History: Diabetes Mellitus, Hyperlipidemia, Hypertension Additional Past Medical History / Comment(s): PALPITATIONS-BBB. polymyalgia rheumatica History of Any Multi-Drug Resistant Organisms: None Reported Past Surgical History: Cardiac Ablation, Section Additional Past Surgical History / Comment(s): SINUS SURGERY, CARDIAC ABLATION FOR PVC x 3. COLONOSCOPY, removal of melanoma Past Anesthesia/Blood Transfusion Reactions: No Reported Reaction Past Psychological History: Anxiety Smoking Status: Never smoker Past Alcohol Use History: None Reported Past Drug Use History: None Reported - Past Family History Mother Family Medical History: No Reported History General Exam Limitations: no limitations Course Vital Signs 06/05/20 06/05/20 13:31 14:00 Temperature 98.2 F Pulse Rate 50 L 46 L Respiratory 16 20 Rate Blood Pressure 179/69 167/61 O2 Sat by Pulse 96 96 Oximetry Medical Decision Making - Lab Data Result diagrams: 06/05/20 13:55 06/05/20 13:55 Lab Results 06/05/20 06/05/20 06/05/20 Range/Units 13:55 13:55 13:55 WBC 5.0 (3.8-10.6) k/uL RBC 4.01 (3.80-5.40) m/uL Hgb 13.0 (11.4-16.0) gm/dL Hct 37.3 (34.0-46.0) % MCV 93.0 (80.0-100.0) fL MCH 32.4 (25.0-35.0) pg MCHC 34.8 (31.0-37.0) g/dL RDW 11.7 (11.5-15.5) % Plt Count 277 (150-450) k/uL MPV 7.6 Neutrophils % 59 % Lymphocytes % 28 % Monocytes % 6 % Eosinophils % 4 % Basophils % 1 % Neutrophils # 2.9 (1.3-7.7) k/uL Lymphocytes # 1.4 (1.0-4.8) k/uL Monocytes # 0.3 (0-1.0) k/uL Eosinophils # 0.2 (0-0.7) k/uL Basophils # 0.1 (0-0.2) k/uL Sodium 140 (137-145) mmol/L Potassium 3.7 (3.5-5.1) mmol/L Chloride 101 (98-107) mmol/L Carbon Dioxide 32 H (22-30) mmol/L Anion Gap 7 mmol/L BUN 21 H (7-17) mg/dL Creatinine 0.74 (0.52-1.04) mg/dL Est GFR (CKD-EPI)AfAm >90 (>60 ml/min/1.73 sqM) Est GFR (CKD-EPI)NonAf 79 (>60 ml/min/1.73 sqM) Glucose 126 H (74-99) mg/dL Calcium 10.5 H (8.4-10.2) mg/dL Magnesium 2.0 (1.6-2.3) mg/dL Total Bilirubin 0.5 (0.2-1.3) mg/dL AST 28 (14-36) U/L ALT 29 (4-34) U/L Alkaline Phosphatase 38 (38-126) U/L Troponin I <0.012 (0.000-0.034) ng/mL Total Protein 7.2 (6.3-8.2) g/dL Albumin 4.4 (3.5-5.0) g/dL TSH 2.060 (0.465-4.680) mIU/L Disposition Clinical Impression: Bradycardia Disposition: OTHER INSTITUTION NOT DEFINED Condition: Fair Additional Instructions: Please drive directly to [facility] emergency room. Discussed with the that private vehicle transferred to [facility] does have risk. Especially, if you develop worsening bradycardia or any other acute symptoms. This was discussed with you and you verbalize understanding Referrals: Luis Eduardo Villalba MD [Primary Care Provider] - 1-2 days Time of Disposition: 15:15 - Out of Hospital Transfer - Req. Specs Out of Hospital Transfer - Requested Specifics: Other Emergency Center ([facility])
[2020-06-05 14:09] LABS: Basophils # (A) 0.1 k/uL (0-0.2); Basophils % (A) 1 %; Eosinophils # (A) 0.2 k/uL (0-0.7); Eosinophils % (A) 4 %; HCT 37.3 % (34.0-46.0); Lymphocytes # (A) 1.4 k/uL (1.0-4.8); Lymphocytes % (A) 28 %; MCH 32.4 pg (25.0-35.0); MCHC 34.8 g/dL (31.0-37.0); Mean Platelet Volume 7.6; Monocytes # (A) 0.3 k/uL (0-1.0); Monocytes % (A) 6 %; Neutrophils # (A) 2.9 k/uL (1.3-7.7); Neutrophils % (A) 59 %; Platelet Count 277 k/uL (150-450); RBC 4.01 m/uL (3.80-5.40); RDW 11.7 % (11.5-15.5)
[2020-06-05 14:17] LABS: ALT 29 U/L (4-34); AST 28 U/L (14-36); African American GFR (CKD) >90 (>60 ml/min/1.73 sqM); Albumin 4.4 g/dL (3.5-5.0); Alkaline Phosphatase 38 U/L (38-126); Anion Gap 7 mmol/L; Blood Urea Nitrogen 21 mg/dL (7-17); Calcium 10.5 mg/dL (8.4-10.2); Carbon Dioxide 32 mmol/L (22-30); Chloride 101 mmol/L (98-107); Glucose 126 mg/dL (74-99); Non-African American GFR(CKD) 79 (>60 ml/min/1.73 sqM); Potassium 3.7 mmol/L (3.5-5.1); Sodium 140 mmol/L (137-145); Total Bilirubin 0.5 mg/dL (0.2-1.3); Total Protein 7.2 g/dL (6.3-8.2)
--- NOTE | 2020-06-05 14:33 | XR ---
EXAMINATION TYPE: XR chest 1V portable DATE OF EXAM: 06/05/2020 HISTORY: Shortness of breath. COMPARISON: 06/17/2018 TECHNIQUE: Single view of the chest is submitted. FINDINGS: Demonstrated are scattered senescent parenchymal change. There is no evidence for focal infiltrate. The heart is stable. Hilar and mediastinal structures are within normal limits. Degenerative changes are seen of the dorsal spine. IMPRESSION: 1. Chronic changes without evidence for acute pulmonary disease.
[2020-06-05 15:16] VITALS: BP 169/84; PULSE 51; RESP 18
== END 2020-06-05 15:36 | disposition other institution (70) ==
LOC: EC 13:29
DX: R00.1 Bradycardia, unspecified (principal); I10 Essential (primary) hypertension; F41.9 Anxiety disorder, unspecified; E78.5 Hyperlipidemia, unspecified; Z79.899 Other long term (current) drug therapy; Z85.820 Personal history of malignant melanoma of skin
CPT/HCPCS: 36415; 71045; 80053; 83735; 84443; 84484; 85025; 93005; 99285

== ENCOUNTER 2022-06-27 18:06 | Inpatient (IN) | payer MEDICARE ==
[2022-06-27] MEDS ORDERED: ONDANSETRON 4 MG/2 ML VIAL IVP STA (18:35)
[2022-06-27] MEDS ORDERED: MECLIZINE 12.5 MG TAB PO STA (18:35)
[2022-06-27] MEDS ORDERED: SODIUM CHLORIDE 0.9% 500 ML 500 ML IV STA (18:35)
--- NOTE | 2022-06-27 18:42 | ED ---
General Adult HPI - General Chief complaint: Dizziness Stated complaint: Dizziness Time Seen by Provider: 06/27/22 18:26 Source: patient Mode of arrival: ambulatory Limitations: no limitations - History of Present Illness Initial comments: Patient is a 81-year-old female presenting with chief complaint of dizziness. Patient states that dizziness has been intermittent for several months. Patient states that at times she feels like she is going to pass out. She admits to generalized mild headache at this time. Patient states that she has headaches every day. No chest pain or difficulty breathing. No palpitations, numbness, tingling. No abdominal pain, nausea, vomiting. No vision or hearing changes. - Related Data Home Medications Medication Instructions Recorded Confirmed Cinnamon Bark [Cinnamon] 500 mg PO DAILY 05/28/16 06/27/22 Lutein 10 mg PO BID 05/28/16 06/27/22 Multivitamins, Thera [Multivitamin 1 tab PO DAILY 05/28/16 06/27/22 (formulary)] Lisinopril-Hctz 20-12.5 mg 1 tab PO DAILY 04/22/17 06/27/22 [Zestoretic 20-12.5] amLODIPine [Norvasc] 5 mg PO DAILY 05/17/17 06/27/22 Propylene Glycol/Peg 400 [Systane 1 drop BOTH EYES DAILY 11/25/17 06/27/22 Ultra 0.4-0.3% Eye Drp] Calcium Citrate/Vitamin D3 1 tab PO BID 06/17/18 06/27/22 [Calcitrate + Vit D Caplet] Magnesium 200 mg PO DAILY 06/17/18 06/27/22 Aspirin EC [Ecotrin Low Dose] 81 mg PO HS 06/27/22 06/27/22 Allergies Allergy/AdvReac Type Severity Reaction Status Date / Time No Known Allergies Allergy Verified 06/27/22 20:56 Review of Systems ROS Statement: Those systems with pertinent positive or pertinent negative responses have been documented in the HPI. ROS Other: All systems not noted in ROS Statement are negative. Past Medical History Past Medical History: Diabetes Mellitus, Hyperlipidemia, Hypertension Additional Past Medical History / Comment(s): PALPITATIONS-BBB. polymyalgia rheumatica History of Any Multi-Drug Resistant Organisms: None Reported Past Surgical History: Cardiac Ablation, Section Additional Past Surgical History / Comment(s): SINUS SURGERY, CARDIAC ABLATION FOR PVC x 3. COLONOSCOPY, removal of melanoma Past Anesthesia/Blood Transfusion Reactions: No Reported Reaction Past Psychological History: Anxiety Smoking Status: Never smoker Past Alcohol Use History: None Reported Past Drug Use History: None Reported - Past Family History Mother Family Medical History: No Reported History General Exam Limitations: no limitations General appearance: alert, in no apparent distress Head exam: Present: atraumatic, normocephalic, normal inspection Eye exam: Present: normal appearance, PERRL, EOMI. Absent: scleral icterus, conjunctival injection, periorbital swelling Pupils: Present: normal accommodation Neck exam: Present: normal inspection, full ROM Respiratory exam: Present: normal lung sounds bilaterally. Absent: respiratory distress, wheezes, rales, rhonchi, stridor Cardiovascular Exam: Present: regular rate, normal rhythm, normal heart sounds. Absent: systolic murmur, diastolic murmur, rubs, gallop, clicks Neurological exam: Present: alert, oriented X3, CN II-XII intact Expanded Patient oriented to: Present: person, place, time Speech: Present: fluid speech Cranial nerves: EOM's Intact: Normal, Facial Sensation: Normal Motor strength exam: RUE: 5, LUE: 5, RLE: 5, LLE: 5 Eye Response: (4) open spontaneously Motor Response: (6) obeys commands Verbal Response: (5) oriented Abel Total: 15 Psychiatric exam: Present: normal affect, normal mood Skin exam: Present: warm, dry, intact, normal color. Absent: rash Course Vital Signs 06/27/22 06/27/22 06/27/22 18:15 20:48 21:34 Temperature 99.0 F Pulse Rate 65 54 L Respiratory 18 18 Rate Blood Pressure 173/79 189/62 167/53 O2 Sat by Pulse 98 100 Oximetry EKG Findings - EKG Comments: EKG Findings:: Sinus bradycardia with sinus arrhythmia. Ventricular rate 57. SC interval 179. QRS 90. QT 417. QTc 411. Diffuse ST segment depression. Medical Decision Making - Medical Decision Making Was pt. sent in by a medical professional or institution (, PA, CARDIO CLINICIAN, urgent ca re, hospital, or longterm...) When possible be specific @ -No Did you speak to anyone other than the patient for history (EMS, parent, family, police, friend...)? What history was obtained from this source @ -No Did you review nursing and triage notes (agree or disagree)? Why? @ -I reviewed and agree with nursing and triage notes Were old charts reviewed (outside hosp., previous admission, EMS record, old EKG, old radiological studies, urgent care reports/EKG's, longterm records)? Report findings @ -No old charts were reviewed Differential Diagnosis (chest pain, altered mental status, abdominal pain women, abdominal pain men, vaginal bleeding, weakness, fever, dyspnea, syncope, headache, dizziness, GI bleed, back pain, seizure, CVA, palpatations, mental health, musculoskeletal)? @ -MDM Differential Dizziness: Benign paroxysmal positional Vertigo, Menieres disease, otitis media, acoustic neuroma, vertebrobasilar insufficiency, cerebellar stroke, encephalitis, hypovolemic, arrhythmia, coronary artery syndrome, anemia this is not meant to be an all-inclusive list EKG interpreted by me (3pts min.). @ -As above X-rays interpreted by me (1pt min.). @ -None done CT interpreted by me (1pt min.). @ -None done U/S interpreted by me (1pt. min.). @ -None done What testing was considered but not performed or refused? (CT, X-rays, U/S, labs)? Why? @ -None What meds were considered but not given or refused? Why? @ -None Did you discuss the management of the patient with other professionals (professionals i.e. , PA, CARDIO CLINICIAN, lab, RT, psych nurse, manager social, commissions manager, teacher, community liaison officer, director of casework)? Give summary @ -discussed with admitting physician Dr. Middleton Was smoking cessation discussed for >3mins.? @ -No Was critical care preformed (if so, how long)? @ -No Were there social determinants of health that impacted care today? How? (Homelessness, low income, unemployed, alcoholism, drug addiction, transportation, low edu. Level, literacy, decrease access to med. care, skilled nursing, rehab)? @ -No Was there de-escalation of care discussed even if they declined (Discuss DNR or withdrawal of care, Hospice)? DNR status @ -No What co-morbidities impacted this encounter? (DM, HTN, Smoking, COPD, CAD, Cancer, CVA, ARF, Chemo, Hep., AIDS, mental health diagnosis, sleep apnea, morbid obesity)? @ -None Was patient admitted / discharged? Hospital course, mention meds given and route, prescriptions, significant lab abnormalities, going to OR and other pertinent info. @ -Patient is a 81-year-old female presenting with chief complaint of dizziness and near syncopal episodes. She states dizziness has been ongoing for months and is worse today. On physical examination there are no focal neurological deficits are lungs are clear to auscultation. EKG shows diffuse ST segment depression. Lab work shows no leukocytosis or anemia. Troponin is 0.075. Patient is having no chest pain or shortness of breath. Chest x-ray shows no acute process and CT of the brain shows no acute process. Patient is given aspirin and started on heparin. I spoke with Dr. Middleton who accepted admission. Patient is agreeable with this plan. I discussed this case with my attending Dr. Christianson. Undiagnosed new problem with uncertain prognosis? @ -No Drug Therapy requiring intensive monitoring for toxicity (Heparin, Nitro, Insulin, Cardizem)? @ -No Were any procedures done? @ -No Diagnosis/symptom? @ -NSTEMI Acute, or Chronic, or Acute on Chronic? @ -Acute Uncomplicated (without systemic symptoms) or Complicated (systemic symptoms)? @ -complicated Side effects of treatment? @ -No Exacerbation, Progression, or Severe Exacerbation? @ -No Poses a threat to life or bodily function? How? (Chest pain, USA, VT, pneumonia, PE, COPD, DKA, ARF, appy, cholecystitis, CVA, Diverticulitis, Homicidal, Suicidal, threat to staff... and all critical care pts) @ -Yes - Lab Data Result diagrams: 06/27/22 18:41 06/27/22 18:41 Lab Results 06/27/22 06/27/22 06/27/22 Range/Units 18:41 18:41 18:41 WBC 7.2 (3.8-10.6) k/uL RBC 4.27 (3.80-5.40) m/uL Hgb 13.9 (11.4-16.0) gm/dL Hct 39.4 (34.0-46.0) % MCV 92.3 (80.0-100.0) fL MCH 32.5 (25.0-35.0) pg MCHC 35.2 (31.0-37.0) g/dL RDW 12.7 (11.5-15.5) % Plt Count 286 (150-450) k/uL MPV 8.1 Neutrophils % 64 % Lymphocytes % 24 % Monocytes % 7 % Eosinophils % 2 % Basophils % 1 % Neutrophils # 4.6 (1.3-7.7) k/uL Lymphocytes # 1.7 (1.0-4.8) k/uL Monocytes # 0.5 (0-1.0) k/uL Eosinophils # 0.1 (0-0.7) k/uL Basophils # 0.1 (0-0.2) k/uL PT 9.8 (9.0-12.0) sec INR 0.9 (<1.2) Sodium (137-145) mmol/L Potassium (3.5-5.1) mmol/L Chloride (98-107) mmol/L Carbon Dioxide (22-30) mmol/L Anion Gap mmol/L BUN (7-17) mg/dL Creatinine (0.52-1.04) mg/dL Est GFR (CKD-EPI)AfAm (>60 ml/min/1.73 sqM) Est GFR (CKD-EPI)NonAf (>60 ml/min/1.73 sqM) Glucose (74-99) mg/dL Plasma Lactic Acid Raffaele (0.7-2.0) mmol/L Calcium (8.4-10.2) mg/dL Total Bilirubin (0.2-1.3) mg/dL AST (14-36) U/L ALT (4-34) U/L Alkaline Phosphatase (38-126) U/L Troponin I (0.000-0.034) ng/mL Total Protein (6.3-8.2) g/dL Albumin (3.5-5.0) g/dL Urine Color Light Yellow Urine Appearance Cloudy H (Clear) Urine pH 8.0 (5.0-8.0) Ur Specific [place] 1.010 (1.001-1.035) Urine Protein 1+ H (Negative) Urine Glucose (UA) Negative (Negative) Urine Ketones Negative (Negative) Urine Blood Negative (Negative) Urine Nitrite Negative (Negative) Urine Bilirubin Negative (Negative) Urine Urobilinogen <2.0 (<2.0) mg/dL Ur Leukocyte Esterase Negative (Negative) Urine RBC 1 (0-5) /hpf Urine WBC 2 (0-5) /hpf Ur Squamous Epith Cells <1 (0-4) /hpf Amorphous Sediment Moderate H (None) /hpf Urine Mucus Rare H (None) /hpf 06/27/22 06/27/22 06/27/22 Range/Units 18:41 18:41 18:41 WBC (3.8-10.6) k/uL RBC (3.80-5.40) m/uL Hgb (11.4-16.0) gm/dL Hct (34.0-46.0) % MCV (80.0-100.0) fL MCH (25.0-35.0) pg MCHC (31.0-37.0) g/dL RDW (11.5-15.5) % Plt Count (150-450) k/uL MPV Neutrophils % % Lymphocytes % % Monocytes % % Eosinophils % % Basophils % % Neutrophils # (1.3-7.7) k/uL Lymphocytes # (1.0-4.8) k/uL Monocytes # (0-1.0) k/uL Eosinophils # (0-0.7) k/uL Basophils # (0-0.2) k/uL PT (9.0-12.0) sec INR (<1.2) Sodium 140 (137-145) mmol/L Potassium 3.5 (3.5-5.1) mmol/L Chloride 104 (98-107) mmol/L Carbon Dioxide 30 (22-30) mmol/L Anion Gap 6 mmol/L BUN 22 H (7-17) mg/dL Creatinine 0.63 (0.52-1.04) mg/dL Est GFR (CKD-EPI)AfAm >90 (>60 ml/min/1.73 sqM) Est GFR (CKD-EPI)NonAf 86 (>60 ml/min/1.73 sqM) Glucose 121 H (74-99) mg/dL Plasma Lactic Acid Raffaele 1.0 (0.7-2.0) mmol/L Calcium 10.4 H (8.4-10.2) mg/dL Total Bilirubin 0.4 (0.2-1.3) mg/dL AST 24 (14-36) U/L ALT 30 (4-34) U/L Alkaline Phosphatase 52 (38-126) U/L Troponin I 0.075 H* (0.000-0.034) ng/mL Total Protein 7.4 (6.3-8.2) g/dL Albumin 4.4 (3.5-5.0) g/dL Urine Color Urine Appearance (Clear) Urine pH (5.0-8.0) Ur Specific [place] (1.001-1.035) Urine Protein (Negative) Urine Glucose (UA) (Negative) Urine Ketones (Negative) Urine Blood (Negative) Urine Nitrite (Negative) Urine Bilirubin (Negative) Urine Urobilinogen (<2.0) mg/dL Ur Leukocyte Esterase (Negative) Urine RBC (0-5) /hpf Urine WBC (0-5) /hpf Ur Squamous Epith Cells (0-4) /hpf Amorphous Sediment (None) /hpf Urine Mucus (None) /hpf Disposition Clinical Impression: NSTEMI (non-ST elevated myocardial infarction) Disposition: ADMITTED IP TO THIS HOSP Condition: Fair Time of Disposition: 20:20
[2022-06-27 19:06] LABS: Basophils # (A) 0.1 k/uL (0-0.2); Basophils % (A) 1 %; Eosinophils # (A) 0.1 k/uL (0-0.7); Eosinophils % (A) 2 %; HCT 39.4 % (34.0-46.0); HGB 13.9 gm/dL (11.4-16.0); Lymphocytes # (A) 1.7 k/uL (1.0-4.8); Lymphocytes % (A) 24 %; MCH 32.5 pg (25.0-35.0); MCHC 35.2 g/dL (31.0-37.0); MCV 92.3 fL (80.0-100.0); Mean Platelet Volume 8.1; Monocytes # (A) 0.5 k/uL (0-1.0); Monocytes % (A) 7 %; Neutrophils # (A) 4.6 k/uL (1.3-7.7); Neutrophils % (A) 64 %; Platelet Count 286 k/uL (150-450); RBC 4.27 m/uL (3.80-5.40); RDW 12.7 % (11.5-15.5); WBC 7.2 k/uL (3.8-10.6)
[2022-06-27 19:16] LABS: INR 0.9 (<1.2); Prothrombin Time 9.8 sec (9.0-12.0)
[2022-06-27 19:17] LABS: ALT 30 U/L (4-34); AST 24 U/L (14-36); African American GFR (CKD) >90 (>60 ml/min/1.73 sqM); Albumin 4.4 g/dL (3.5-5.0); Alkaline Phosphatase 52 U/L (38-126); Anion Gap 6 mmol/L; Blood Urea Nitrogen 22 mg/dL (7-17); Calcium 10.4 mg/dL (8.4-10.2); Carbon Dioxide 30 mmol/L (22-30); Chloride 104 mmol/L (98-107); Glucose 121 mg/dL (74-99); Non-African American GFR(CKD) 86 (>60 ml/min/1.73 sqM); Potassium 3.5 mmol/L (3.5-5.1); Sodium 140 mmol/L (137-145); Total Bilirubin 0.4 mg/dL (0.2-1.3); Total Protein 7.4 g/dL (6.3-8.2)
--- NOTE | 2022-06-27 19:18 | CT ---
EXAMINATION TYPE: CT brain wo con DATE OF EXAM: 06/27/2022 COMPARISON: None HISTORY: headache, dizziness CT DLP: 1125.7 mGycm Automated exposure control for dose reduction was used. Images of the brain obtained with no contrast. There is cerebral cortical atrophy. There is no mass effect or midline shift. No sign of intracranial hemorrhage. There is some minimal white matter hypodensity around the ventricles. Calvarium is intac t. IMPRESSION: Cerebral atrophy and mild chronic white matter changes. No acute intracranial abnormality.
[2022-06-27 19:20] LABS: Amorphous Sediment,Urine Moderate /hpf; Appearance,Urine Cloudy (Clear); Bilirubin,Urine Negative (Negative); Blood,Urine Negative (Negative); Color,Urine Light Yellow; Glucose,Urine (UA) Negative (Negative); Ketones,Urine Negative (Negative); Leukocyte Esterase,Urine Negative (Negative); Mucus,Urine Rare /hpf; Nitrite,Urine Negative (Negative); Protein,Urine 1+ (Negative); RBC,Urine 1 /hpf (0-5); Squamous Epithelial Cell,Urine <1 /hpf (0-4); Urobilinogen,Urine <2.0 mg/dL (<2.0); WBC,Urine 2 /hpf (0-5)
--- NOTE | 2022-06-27 19:20 | XR ---
EXAMINATION TYPE: XR chest 2V DATE OF EXAM: 06/27/2022 COMPARISON: 06/05/2020 HISTORY: Dizziness TECHNIQUE: 2 views FINDINGS: Heart and mediastinum are normal. Lungs are clear of consolidation there are no hilar ewa s. There are chest leads. Costophrenic angles are clear. Bony thorax is intact. IMPRESSION: No active cardiopulmonary disease. Normal heart. No change.
[2022-06-27] MEDS ORDERED: HEPARIN SODIUM 1,000 UN/ML (10ML VL) IV ONE (20:18)
[2022-06-27] MEDS ORDERED: HEPARIN SODIUM 1,000 UN/ML (10ML VL) IV PRN (20:18)
[2022-06-27] MEDS ORDERED: ASPIRIN 81 MG PO STA (20:18)
[2022-06-27] MEDS ORDERED: HEPARIN SOD,PORK IN 0.45% NACL 25,000 UNIT in 0.45% NACL 1 250ML.BAG IV SCH (20:30)
[2022-06-27] MEDS ORDERED: NALOXONE 0.4 MG/ML 1 ML VIAL IV PRN (20:45)
[2022-06-27] MEDS ORDERED: hydrALAZINE HCL 20 MG/ML 1 ML VIAL IVP STA (20:54)
[2022-06-27 21:53] LABS: Glucose,Whole Blood 117 mg/dL (70-110)
[2022-06-27] MEDS: SODIUM CHLORIDE 0.9% 1,000 ML IV SCH (21:56)
[2022-06-28 06:08] LABS: Glucose,Whole Blood 110 mg/dL (70-110)
[2022-06-28 08:00] LABS: Basophils # (A) 0.1 k/uL (0-0.2); Basophils % (A) 1 %; Eosinophils # (A) 0.1 k/uL (0-0.7); Eosinophils % (A) 2 %; HCT 35.6 % (34.0-46.0); HGB 12.1 gm/dL (11.4-16.0); Lymphocytes % (A) 35 %; MCH 31.8 pg (25.0-35.0); MCHC 34.1 g/dL (31.0-37.0); MCV 93.2 fL (80.0-100.0); Mean Platelet Volume 8.3; Monocytes # (A) 0.4 k/uL (0-1.0); Monocytes % (A) 7 %; Neutrophils # (A) 2.9 k/uL (1.3-7.7); Neutrophils % (A) 52 %; Platelet Count 293 k/uL (150-450); RBC 3.82 m/uL (3.80-5.40); RDW 12.8 % (11.5-15.5); WBC 5.7 k/uL (3.8-10.6)
[2022-06-28 08:10] LABS: Prothrombin Time 10.9 sec (9.0-12.0)
[2022-06-28] MEDS: LISINOPRIL-HCTZ 20-12.5 MG 1 EACH TAB PO SCH (09:00)
[2022-06-28] MEDS: amLODIPine 5 MG TAB PO SCH (09:00)
[2022-06-28] MEDS: SODIUM CHLORIDE 0.9% 1,000 ML IV SCH ×2 (09:57→21:30)
[2022-06-28] MEDS ORDERED: ASPIRIN 325 MG TAB PO STA (10:18)
[2022-06-28] MEDS ORDERED: NITROGLYCERIN SL TABS 0.4 MG TAB SUBLINGUAL PRN (10:18)
[2022-06-28] MEDS ORDERED: ATORVASTATIN 80 MG TAB PO STA (10:18)
[2022-06-28] MEDS ORDERED: ALPRAZolam 0.25 MG TAB PO PRN (10:18)
[2022-06-28] MEDS ORDERED: ALPRAZolam 0.5 MG TAB PO PRN (10:18)
[2022-06-28] MEDS: SODIUM CHLORIDE 0.9% 1,000 ML in EMPTY BAG 1 BAG IV SCH (11:23)
--- NOTE | 2022-06-28 11:32 | P.CRDCN ---
History of Present Illness Consult date: 06/28/22 History of present illness: HISTORY OF PRESENT ILLNESS: This is a 81-year-old female with a past medical history significant for hypertension, hyperlipidemia, diabetes, and previous ablation for PVCs. Patient follows with Dr. Banegas. We have been asked to see the patient in consultation for elevated troponins. Patient examined at the bedside. Patient states she has been having dizziness for many months. She states yesterday it seemed to be wo rse than prior so she came to the ER for evaluation. She states it does not feel like the room is spinning. She reports presyncope, but no episodes of actual syncope. She denies any chest pain or pressure. Denies SOB. She denies a history of NM or stenting. * EKG reveals sinus bradycardia with a heart rate of 57. ST depression noted. * Chest xray negative for acute process. * Laboratory data: WBC 5.7. Hemoglobin 12.1. Platelet count 293. Sodium 140. Potassium 3.5. BUN 22. Creatinine 0.63. Troponin 0.075. 0.133. 0.123. * Current home cardiac medications include aspirin 81 mg, Norvasc 5 mg daily, and lisinopril-hydrochlorothiazide 20-12.5mg daily * Cardiac catheterization history: 2011 revealing mild intimal disease involving the proximal left circumflex and OM approximately 20% REVIEW OF SYSTEMS: At the time of my exam: CONSTITUTIONAL: Denies fever or chills. HEENT: Denies blurred vision, vision changes, or eye pain. Denies hemoptysis CARDIOVASCULAR: Denies chest pain. Denies orthopnea. Denies PND. Denies palpitations RESPIRATORY: Denies shortness of breath. GASTROINTESTINAL: Denies abdominal pain. Denies nausea or vomiting. HEMATOLOGIC: Denies bleeding disorders. GENITOURINARY: Denies any blood in urine. SKIN: Denies pruitis. Denies rash. PHYSICAL EXAM: VITAL SIGNS: Reviewed. GENERAL: Well-developed in no acute distress. HEENT: Head is normocephalic. Pupils are equal, round. Sclerae anicteric. Mucous membranes of the mouth are moist. Neck supple. No JVD or thyromegaly LUNGS: Respirations even and unlabored. Lungs essentially clear to auscultation bilaterally. HEART: Regular rate and rhythm. S1 and S2 heard. + systolic murmur ABDOMEN: Soft. Nondistended. Nontender. EXTREMITIES: Normal range of motion. No clubbing or cyanosis. Peripheral pulses intact. No lower extremity edema NEUROLOGIC: Awake and alert. Oriented x 3. 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 Check lipid panel Continue IVF hydration Patient to undergo cardiac cath today to rule out underlying CAD with Dr. Farfan. Patient agreeable. Recommend event monitor at discharge Further recommendations pending patient course Nurse practitioner note has been reviewed by physician. Signing provider agrees with the documented findings, assessment, and plan of care. Past Medical History Past Medical History: Diabetes Mellitus, Hyperlipidemia, Hypertension Additional Past Medical History / Comment(s): PALPITATIONS-BBB. polymyalgia rheumatica History of Any Multi-Drug Resistant Organisms: None Reported Past Surgical History: Cardiac Ablation, Section Additional Past Surgical History / Comment(s): SINUS SURGERY, CARDIAC ABLATION FOR PVC x 3. COLONOSCOPY, removal of melanoma Past Anesthesia/Blood Transfusion Reactions: No Reported Reaction Past Psychological History: Anxiety Smoking Status: Never smoker Past Alcohol Use History: None Reported Past Drug Use History: None Reported - Past Family History Mother Family Medical History: No Reported History Medications and Allergies Home Medications Medication Instructions Recorded Confirmed Type Cinnamon Bark [Cinnamon] 500 mg PO DAILY 05/28/16 06/27/22 History Lutein 10 mg PO BID 05/28/16 06/27/22 History Multivitamins, Thera [Multivitamin 1 tab PO DAILY 05/28/16 06/27/22 History (formulary)] Lisinopril-Hctz 20-12.5 mg 1 tab PO DAILY 04/22/17 06/27/22 History [Zestoretic 20-12.5] amLODIPine [Norvasc] 5 mg PO DAILY 05/17/17 06/27/22 History Propylene Glycol/Peg 400 [Systane 1 drop BOTH EYES DAILY 11/25/17 06/27/22 History Ultra 0.4-0.3% Eye Drp] Calcium Citrate/Vitamin D3 1 tab PO BID 06/17/18 06/27/22 History [Calcitrate + Vit D Caplet] Magnesium 200 mg PO DAILY 06/17/18 06/27/22 History Aspirin EC [Ecotrin Low Dose] 81 mg PO HS 06/27/22 06/27/22 History Allergies Allergy/AdvReac Type Severity Reaction Status Date / Time No Known Allergies Allergy Verified 06/27/22 20:56 Physical Exam Vitals: Vital Signs Temp Pulse Pulse Resp BP BP Pulse Ox 06/28/22 04:39 57 L 16 147/51 97 06/28/22 02:00 18 06/27/22 23:47 98.1 F 57 L 18 133/56 98 06/27/22 21:53 98.1 F 65 18 146/62 99 06/27/22 21:34 167/53 06/27/22 20:48 54 L 18 189/62 100 06/27/22 18:15 99.0 F 65 18 173/79 98 Intake and Output 06/27/22 06/28/22 06/28/22 22:59 06:59 14:59 Intake Total 540 48.863 Balance 540 48.863 Intake: Intake, IV Titration 48.863 Amount Heparin Sod,Pork in 0.45% 48.863 NaCl 25,000 unit In 0.45 % NaCl 1 250ml.bag @ 12 UNITS/KG/HR 7.239 mls/hr IV .Q24H [facility] Rx#: [id number] Oral 540 Other: Voiding Method Toilet # Voids 1 Weight 60.328 kg Results 06/28/22 07:45 06/27/22 18:41 Cardiac Enzymes 06/27/22 06/27/22 06/27/22 Range/Units 18:41 18:41 22:52 AST 24 (14-36) U/L Troponin I 0.075 H* 0.133 H* (0.000-0.034) ng/mL 06/28/22 Range/Units 01:53 AST (14-36) U/L Troponin I 0.123 H* (0.000-0.034) ng/mL Coagulation 06/27/22 06/27/22 06/28/22 Range/Units 18:41 21:12 01:53 PT 9.8 (9.0-12.0) sec APTT 79.2 H 49.4 H (22.0-30.0) sec CBC 06/27/22 06/28/22 Range/Units 18:41 07:45 WBC 7.2 5.7 (3.8-10.6) k/uL RBC 4.27 3.82 (3.80-5.40) m/uL Hgb 13.9 12.1 (11.4-16.0) gm/dL Hct 39.4 35.6 (34.0-46.0) % Plt Count 286 293 (150-450) k/uL Comprehensive Metabolic Panel 06/27/22 Range/Units 18:41 Sodium 140 (137-145) mmol/L Potassium 3.5 (3.5-5.1) mmol/L Chloride 104 (98-107) mmol/L Carbon Dioxide 30 (22-30) mmol/L BUN 22 H (7-17) mg/dL Creatinine 0.63 (0.52-1.04) mg/dL Glucose 121 H (74-99) mg/dL Calcium 10.4 H (8.4-10.2) mg/dL AST 24 (14-36) U/L ALT 30 (4-34) U/L Alkaline Phosphatase 52 (38-126) U/L Total Protein 7.4 (6.3-8.2) g/dL Albumin 4.4 (3.5-5.0) g/dL Current Medications Generic Name Dose Route Start Last Admin Trade Name Freq PRN Reason Stop Dose Admin Heparin Sodium (Porcine) 0 unit 06/27/22 20:18 Heparin Sodium 1,000 Un/Ml (10ml Vl) IV PER PROTOCOL PRN Low PTT Protocol Heparin Sodium/Sodium Chloride 250 mls @ 7.239 mls/hr 06/27/22 20:30 06/28/22 03:18 25,000 unit/ Sodium Chloride IV 12 units/kg/hr .Q24H K[facility] 7.239 mls/hr Titration Protocol 12 UNITS/KG/HR Sodium Chloride 1,000 mls @ 75 mls/hr 06/27/22 20:45 06/27/22 21:56 Saline 0.9% IV 75 mls/hr .[id number] KACI Administration Naloxone HCl 0.2 mg 06/27/22 20:45 Naloxone 0.4 Mg/Ml 1 Ml Vial IV Q2M PRN Opioid Reversal Intake and Output 06/27/22 06/28/22 06/28/22 22:59 06:59 14:59 Intake Total 540 48.863 Balance 540 48.863 Intake: Intake, IV Titration 48.863 Amount Heparin Sod,Pork in 0.45% 48.863 NaCl 25,000 unit In 0.45 % NaCl 1 250ml.bag @ 12 UNITS/KG/HR 7.239 mls/hr IV .Q24H [facility] Rx#: [id number] Oral 540 Other: Voiding Method Toilet # Voids 1 Weight 60.328 kg 06/28/22 07:45 06/27/22 18:41
[2022-06-28 11:44] LABS: Glucose,Whole Blood 110 mg/dL (70-110)
[2022-06-28] MEDS ORDERED: VERAPAMIL 2.5 MG/ML 2 ML AMP ONE (12:05)
[2022-06-28] MEDS ORDERED: HEPARIN SODIUM 1,000 UN/ML (10ML VL) ONE (12:05)
[2022-06-28] MEDS ORDERED: SODIUM CHLORIDE 0.9% 1,000 ML IV ONE (12:21)
[2022-06-28] MEDS ORDERED: MIDAZOLAM 2 MG/2 ML VIAL IV ONE ×2 (12:22→12:28)
[2022-06-28] MEDS ORDERED: LIDOCAINE 1% INJ 10MG/ML (5 ML VIAL-PF) SQ ONE (12:28)
[2022-06-28] MEDS ORDERED: VERAPAMIL SYRINGE (5 MG/10 ML) INTRAARTER ONE (12:36)
[2022-06-28] MEDS ORDERED: HEPARIN SODIUM 1,000 UN/ML (10ML VL) IV ONE (12:36)
[2022-06-28] MEDS ORDERED: NITROGLYCERIN SL TABS 0.4 MG TAB SUBLINGUAL ONE ×2 (12:44→12:46)
[2022-06-28] MEDS ORDERED: IOPAMIDOL-370 100ML BTL INJ ONE (12:53)
[2022-06-28] MEDS: MECLIZINE 12.5 MG TAB PO SCH ×3 (13:35→21:28)
--- NOTE | 2022-06-28 15:08 | US ---
EXAMINATION TYPE: US carotid duplex BILAT DATE OF EXAM: 06/28/2022 COMPARISON: NONE CLINICAL HISTORY: stroke. Stroke TECHNIQUE: Carotid duplex ultrasound examination. Indirect Doppler criteria was utilized. FINDINGS: EXAM MEASUREMENTS: RIGHT: Peak Systolic Velocity (PSV) cm/sec ----- Right CCA: 91.5 ----- Right ICA: 140.4 ----- Right ECA: 137.8 ICA/CCA ratio: 1.5 RIGHT: End Diastole cm/sec ----- Right CCA: 5.7 ----- Right ICA: 19.2 ----- Right ECA: 0.0 LEFT: Peak Systolic Velocity (PSV) cm/sec ----- Left CCA: 95.8 ----- Left ICA: 197.3 ----- Left ECA: 129.9 ICA/CCA ratio: 2.1 LEFT: End Diastole cm/sec ----- Left CCA: 7.1 ----- Left ICA: 20.7 ----- Left ECA: 0.0 VERTEBRALS (direction of flow): Right Vertebral: Antegrade Left Vertebral: Antegrade Rhythm: Normal CONVERTING OPERATOR NOTES: Slightly elevated velocities left ICA, otherwise no significant stenosis visuali zed [id number] peripheral eccentric plaque right carotid bulb level. Increased peak systolic veloci ty on the left with abnormal ratio. End-diastolic velocity is normal. IMPRESSION: Mild to moderate plaque bilaterally. Stenosis may be near 50% on the left. Consider CTA of the neck to more definitively evaluate. Criteria for Assigning % of Stenosis / Diameter reduction (Estimation based on the indirect measurements of the internal carotid artery velocities (ICA PSV). 1. Normal (no stenosis)=ICA PSV < 125 cm/s: ratio < 2.0: ICA EDV<40 cm/s. 2. Less than 50% stenosis=ICA PSV < 125 cm/s: ratio < 2.0: ICA EDV<40 cm/s. 3. 50 to 69% stenosis=ICA PSV of 125 to 230 cm/s: ration 2.0 ? 4.0: ICA EDV 40-100 cm/s. 4. Greater than 70% stenosis to near occlusion= ICA PSV > 230 cm/s: ratio > 4.0: ICA EDV > 100 cm/s. 5. Near occlusion= ICA PSV velocities may be low or undetectable: variable ratio and ICA EDV. 6. Total occlusion=unable to detect flow.
--- NOTE | 2022-06-28 15:20 | CC ---
CARDIAC CATHETERIZATION REPORT DATE OF SERVICE: 06/28/2022. PROCEDURES PERFORMED: Left heart catheterization, coronary angiography, and left ventriculography. PERFORMED BY: Dr. Ara Farfan. Moderate conscious sedation time was 34 minutes. The patient was administered Versed. Oxygen saturation, hemodynamics, and EKG were monitored closely. CLINICAL INFORMATION: Ms. Bebe Iyer is a 81-year-old lady, who carries a diagnosis of PVCs and more than 10 years ago underwent an ablation at [facility] for PVCs. She also probably has some sick sinus syndrome, but resting bradycardia. With activity, her heart rate usually goes up. She was seen and evaluated by a calibration specialist in [place], and also, [facility] advised no pacemaker at this time. She came into the hospital with complaints of dizziness. She has heart rate in the 50s, some of them in the 40s but sinus mechanism with PACs, and sometimes she has a second-degree heart block with a narrow QRS. However, no correlation of any of her dizziness so far in the hospital with bradycardia. Heart rates have been in the 50 or more when she had dizziness. However, we will do an event monitor for this lady. She also had a troponin elevation suggestive of [id number] IA with nonspecific ST-T changes; and therefore, I recommended coronary angiography after due discussion regarding risks, benefits, and options. PROCEDURE NOTE: Under local anesthesia and strict aseptic precautions, a 6-Latvian introducer was placed in the right radial artery using a micropuncture needle technique. Using JL3.5 and JR4 catheters, I performed coronary angiography, and a pigtail catheter was used to check LV pressures, and LV-gram was performed in 30-degree BASSETT projection. The patient tolerated the procedure well without complication. The sheath was taken out, and TR band was applied as per protocol. Saturation in the fingers of the right hand was 95%. Details were discussed with the patient and her . CARDIAC CATHETERIZATION FINDINGS: The left ventricular end-diastolic pressure was 5 mmHg without any gradient across aortic valve. CORONARY ANGIOGRAPHY FINDINGS: RIGHT CORONARY ARTERY: This is a dominant vessel, has mild calcification, distally bifurcates into large PDA and smaller PLV, minor irregularities. No significant disease in the dominant RCA. RCA bifurcates into a large PDA, but smaller PLV branches. LEFT MAIN CORONARY ARTERY: Short, patent, disease-free vessel, free of significant disease, bifurcates into LAD and circumflex. LEFT ANTERIOR DESCENDING CORONARY ARTERY: Good-caliber vessel, has [id number]-sr-[id number] calcification, has about a 30% narrowing in the proximal LAD, and right after that area of narrowing, there is a diagonal branch of about 1.75-mm caliber that has a 95% stenosis, and this may be the culprit lesion. The distribution is [id number]. The size is less than 2 mm. The lesion is 95%, but the LAD has no significant disease. LAD beyond the diagonal branch gives off several smaller diagonal and septal branches and runs all the way to the apex supplying a sizable amount of myocardium. No significant disease in the LAD system. Diagonal has a 95% stenosis. LEFT POSTERIOR CIRCUMFLEX CORONARY ARTERY: Nondominant vessel, gives off a single obtuse marginal that runs laterally, has minor irregularities, no significant disease. There is about a 35% narrowing in the circumflex just after the origin of the groove branch. LEFT VENTRICULOGRAM: This was performed in 30-degree BASSETT projection, revealed left ventricle is of a normal size with excellent contractility, ejection fraction of more than 60% without mitral regurgitation. FINAL IMPRESSION: This patient has a right-dominant system, normal filling pressures, no gradient, excellent ejection fraction of more than 60% without mitral regurgitation. Right coronary artery has minor irregularities, and circumflex has a 35% to 40% lesion after the groove branch. Left anterior descending has a 30% lesion with a diagonal branch 95% lesion. Diagonal branch is small in size and distribution and is not that significant. RECOMMENDATIONS: Findings were discussed with the patient and . I am recommending that we will add Imdur to her regimen. No beta-blockers in view of resting bradycardia. I will add Imdur. Continue her antihypertensives. Add Lipitor 40 mg daily. We will do an event monitor for 30 days prior to discharge. I expect she will be discharged tomorrow, and I will see her in the office in about a week. I explained to the patient that we will pursue medical therapy for the diagonal disease and do an event monitor for her episodes of dizziness and resting bradycardia. MMODL / IJN: [id number] /
[2022-06-28 16:41] LABS: Glucose,Whole Blood 209 mg/dL (70-110)
--- NOTE | 2022-06-28 17:35 | P.CNNES ---
History of Present Illness Consult date: 06/28/22 Requesting physician: Kaushik Hernandez Reason for Consult: Dizziness History of Present Illness: Patient is a 81-year-old female with history of hypertension, diabetes and long- standing history of dizziness, came to the hospital yesterday at 6:06 PM for near syncopal spell and dizziness. Patient states that she has been dizzy on and off her whole life. When she was really young, she had little problem with it. When she was with her first child, 57 years ago, she developed toxemia and after delivery she had vertigo/dizziness, that lasted for almost for a year. After that she would be okay for quite a while, then sometimes the symptoms would come back. From December through March 2022, she had "alis ble dizziness", and also had headache with it. She saw neurologist Dr. Landon Scales who felt it was not neurological, and recommended patient follow up with the ENT specialist. She has an appointment with ENT specialist next week. Patient admits to having tinnitus for long time. She has some age-related hearing loss, but nothing unilateral or focal loss of hearing. Denies any pain or pressure in the ears. Patient states it is more spinning than lightheadedness, although she was not sure. She believes that things are moving in her vision. She could not tell any trigger but bending down could make her dizzy but not every time. However when she is dizzy, she cannot look up or down. Regarding rolling over in the bed "has to be careful". Patient states that once dizziness occurs, it can last 4 months. It is not a "spell", it is constant, "not comes and goes". After March she was doing well, but in May 2022, she got up and turned her head to the left to kiss the dog and she became dizzy again. Patient states that yesterday the dizziness got worse, she was fixing up her supper at around 5 PM, when she became very dizzy, really weak as if she will collapse. Therefore she came to the hospital. She denies any focal symptoms like slurred speech facial droop loss of vision. No focal numbness tingling or any strokelike symptoms. Vital signs arrival blood pressure 173/79, pulse is [address] head showed cerebral atrophy and mild chronic white matter changes. No acute intracranial abnormality. I personally reviewed CT head, agree with the findings. However there is moderate sized polyp in the right maxillary sinus. Rest of the paranasal sinuses are clear. Chest x-ray normal. EKG with sinus bradycardia. Blood test shows normal CBC, 18 PT is normal, PTT is 79.2. Electrolytes are normal, renal functions normal, hepatic panel normal. Troponin is 0.075, which went up to 0.133. UA is negative. TSH normal. Patient underwent cardiac catheterization, which revealed excellent ejection fraction of more than 60% without mitral regurgitation. Right coronary artery has minor irregularities and circumflex has of 35-40% lesion after the groove branch. Left anterior descending has a 30% lesion with a diagonal branch 95% lesion. Diagonal branch is a small in size and distribution and is not that significant. Cardiology recommending medical management, including adjusting her blood pressure medication and starting Lipitor. Patient states that for last 2 weeks she has been having hot flashes, which can occur about twice a day, for last 2 weeks. She has checked temperature, but has no fever. Patient has history of hypertension for several years, also has diabetes for several years. Denies any tobacco or alcohol use. He used to take Pravachol, used to tolerated well, but after reading some side effects, she stopped taking it. She didn't have any side effects from protocol. Home medications include Zestoretic 20/12.5, amlodipine 5 mg, magnesium and aspirin 81 mg daily. Review of Systems Constitutional: Denies chills, Denies fever Eyes: denies blurred vision, denies pain Ears: bilateral: decreased hearing (Mild, age-related), tinnitus, deny: ear discharge, earache Ears, nose, mouth and throat: Denies headache, Denies sore throat Cardiovascular: Denies chest pain, Denies shortness of breath Respiratory: Denies cough Gastrointestinal: Denies abdominal pain, Denies diarrhea, Denies nausea, Denies vomiting Musculoskeletal: Denies muscle cramps, Denies myalgias, Denies redness of joints Integumentary: Denies pruritus, Denies rash Neurological: Reports as per HPI Psychiatric: Denies anxiety, Denies depression Endocrine: Denies fatigue, Denies weight change Hematologic/Lymphatic: Denies easy bruising Past Medical History Past Medical History: Diabetes Mellitus, Hyperlipidemia, Hypertension Additional Past Medical History / Comment(s): PALPITATIONS-BBB. polymyalgia rheumatica History of Any Multi-Drug Resistant Organisms: None Reported Past Surgical History: Cardiac Ablation, Section Additional Past Surgical History / Comment(s): SINUS SURGERY, CARDIAC ABLATION FOR PVC x 3. COLONOSCOPY, removal of melanoma Past Anesthesia/Blood Transfusion Reactions: No Reported Reaction Past Psychological History: Anxiety Smoking Status: Never smoker Past Alcohol Use History: None Reported Past Drug Use History: None Reported - Past Family History Mother Family Medical History: No Reported History Medications and Allergies Home Medications Medication Instructions Recorded Confirmed Type Cinnamon Bark [Cinnamon] 500 mg PO DAILY 05/28/16 06/27/22 History Lutein 10 mg PO BID 05/28/16 06/27/22 History Multivitamins, Thera [Multivitamin 1 tab PO DAILY 05/28/16 06/27/22 History (formulary)] Lisinopril-Hctz 20-12.5 mg 1 tab PO DAILY 04/22/17 06/27/22 History [Zestoretic 20-12.5] amLODIPine [Norvasc] 5 mg PO DAILY 05/17/17 06/27/22 History Propylene Glycol/Peg 400 [Systane 1 drop BOTH EYES DAILY 11/25/17 06/27/22 History Ultra 0.4-0.3% Eye Drp] Calcium Citrate/Vitamin D3 1 tab PO BID 06/17/18 06/27/22 History [Calcitrate + Vit D Caplet] Magnesium 200 mg PO DAILY 06/17/18 06/27/22 History Aspirin EC [Ecotrin Low Dose] 81 mg PO HS 06/27/22 06/27/22 History Allergies Allergy/AdvReac Type Severity Reaction Status Date / Time No Known Allergies Allergy Verified 06/27/22 20:56 Physical Examination - Vital Signs Vital Signs: Vital Signs Temp Pulse Pulse Pulse Pulse Pulse Pulse 06/28/22 13:29 52 L 06/28/22 13:14 56 L 06/28/22 08:51 65 76 64 06/28/22 04:39 57 L 06/28/22 02:00 06/27/22 23:47 98.1 F 57 L 06/27/22 21:53 98.1 F 65 06/27/22 21:34 06/27/22 20:48 54 L 06/27/22 18:15 99.0 F 65 Resp BP BP BP BP BP BP 06/28/22 13:29 16 163/52 06/28/22 13:14 16 159/66 06/28/22 08:51 16 166/66 150/72 153/57 06/28/22 04:39 16 147/51 06/28/22 02:00 18 06/27/22 23:47 18 133/56 06/27/22 21:53 18 146/62 06/27/22 21:34 167/53 06/27/22 20:48 18 189/62 06/27/22 18:15 18 173/79 Pulse Ox 06/28/22 13:29 96 06/28/22 13:14 96 06/28/22 08:51 96 06/28/22 04:39 97 06/28/22 02:00 06/27/22 23:47 98 06/27/22 21:53 99 06/27/22 21:34 06/27/22 20:48 100 06/27/22 18:15 98 Intake and Output 06/27/22 06/28/22 06/28/22 22:59 06:59 14:59 Intake Total 540 48.863 200 Balance 540 48.863 200 Intake: IV 200 Intake, IV Titration 48.863 Amount Heparin Sod,Pork in 0.45% 48.863 NaCl 25,000 unit In 0.45 % NaCl 1 250ml.bag @ 12 UNITS/KG/HR 7.239 mls/hr IV .Q24H [facility] Rx#: [id number] Oral 540 Other: Voiding Method Toilet # Voids 1 Weight 60.328 kg Patient is an elderly female, very pleasant, in no acute distress. Patient is alert awake oriented to time place and person. Speech and language functions are normal. Patient can name and repeat very well. No aphasia or dysarthria. Attention, concentration and fund of knowledge is adequate. On cranial nerve examination, pupils are equal, round and reacting to light, visual rodriguez are full on confrontation, with no neglect on double simultaneous stimulation. Extraocular muscles are intact with no nystagmus. Face is symmetric, tongue protrudes to the midline. Palatal elevation and sensation normal, hearing and shoulder shrug normal, facial sensation normal. On muscle strength testing, there is no pronator drift and the strength is normal in arms and legs distally and proximally. Deep tendon reflexes are symmetric 2+ all over, ankles are 1+ and plantars downgoing bilaterally. No clonus. Sensory to touch is equal with no neglect on double simultaneous stimulation. Cerebellar function showed no ataxia for cyqzht-ry-khxy testing. No dysdiadochokinesia. No ataxia for zdgj-zu-sfme testing on either side. Tone and bulk of muscles normal. Gait deferred.. On general examination, there is no carotid bruit or murmur, S1-S2 audible. Chest is clear on consultation. Abdomen is soft nontender. No organomegaly, bowel sounds present. Peripheral pulses are present. No edema. Results - Laboratory Findings CBC and BMP: 06/28/22 07:45 06/27/22 18:41 Abnormal Lab Findings: Abnormal Labs 06/27/22 06/27/22 06/27/22 18:41 18:41 18:41 APTT BUN 22 H Glucose 121 H POC Glucose (mg/dL) Calcium 10.4 H Troponin I 0.075 H* Urine Appearance Cloudy H Urine Protein 1+ H Amorphous Sediment Moderate H Urine Mucus Rare H 06/27/22 06/27/22 06/27/22 21:12 21:51 22:52 APTT 79.2 H BUN Glucose POC Glucose (mg/dL) 117 H Calcium Troponin I 0.133 H* Urine Appearance Urine Protein Amorphous Sediment Urine Mucus 06/28/22 06/28/22 01:53 01:53 APTT 49.4 H BUN Glucose POC Glucose (mg/dL) Calcium Troponin I 0.123 H* Urine Appearance Urine Protein Amorphous Sediment Urine Mucus Assessment and Plan Assessment: * Very long-standing history of dizziness/vertigo, 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 Rule out Mnire's disease versus BPPV. Does not appear central in nature. * Recent near syncopal spell, likely cardiac in nature, due to reasons mentioned below. * Elevated cardiac enzymes, probable non-STEMI * Bradycardia * Hypertension * Diabetes * Hyperlipidemia * Coronary artery disease Plan: * Carotid Doppler revealed mild to moderate plaque bilaterally. Stenosis may be near 50% on the left. Antegrade flow in both vertebral arteries. No need for further testing. Recommend repeat carotid Doppler in 6-12 months to evaluate for any interval change. * Agree with checking 2-D echo and event monitor placement prior to discharge. * Patient has stopped taking statins about a year ago. Patient was recommended to resume status. Patient started on Lipitor 40 mg daily by cardiology. * Continue aspirin 81 mg daily. Patient currently on heparin for elevated cardiac enzymes. * Recommend patient follow up with ENT specialist as an outpatient to evaluate for peripheral vascular dysfunction, rule out Mnire's versus BPPV. * Check B12, folate, MMA. * Neurologically clear otherwise. Thank you for the consult.
--- NOTE | 2022-06-28 18:00 | CA ---
Transthoracic Echo Report Name: Bebe Iyer Age: 81 Gender: F : 1940 Exam Date: 06/28/2022 13:18 Exam Location: [facility] Ht (in): 65 Wt (lb): 133 Ordering Physician: Iman Russo Attending/Referring Phys: Landon Scales MD [employer]er Ghassan Sweet RDCS Procedure CPT: Indications: LV function, abnormal troponins Cardiac Hx: Technical Quality: Fair Contrast 1: Total Dose (mL): Contrast 2: Total Dose (mL): MEASUREMENTS (Male / Female) Normal Values 2D ECHO LV Diastolic Diameter PLAX 3.8 cm 4.2 - 5.9 / 3.9 - 5.3 cm LV Systolic Diameter PLAX 2.4 cm IVS Diastolic Thickness 1.2 cm 0.6 - 1.0 / 0.6 - 0.9 cm LVPW Diastolic Thickness 1.3 cm 0.6 - 1.0 / 0.6 - 0.9 cm LV Relative Wall Thickness 0.7 RV Internal Dim ED PLAX 3.0 cm LVOT Diameter 2.0 cm LA Systolic Diameter LX 3.7 cm 3.0 - 4.0 / 2.7 - 3.8 cm LV Diastolic Volume MOD BP 50.5 cm??? 67 - 155 / 56 - 104 cm??? LV Systolic Volume MOD BP 22.1 cm??? 22 - 58 / 19 - 49 cm??? LV Ejection Fraction MOD BP 56.2 % >= 55 % LV Diastolic Volume MOD 4C 48.9 cm??? LV Systolic Volume MOD 4C 23.2 cm??? LV Ejection Fraction MOD 4C 52.7 % LV Diastolic Length 4C 6.2 cm LV Systolic Length 4C 5.8 cm LV Diastolic Volume MOD 2C 52.1 cm??? LV Systolic Volume MOD 2C 18.6 cm??? LV Ejection Fraction MOD 2C 64.3 % LV Diastolic Length 2C 6.4 cm LV Systolic Length 2C 5.0 cm Ascending Aorta Diameter 2.5 cm M-MODE Aortic Root Diameter MM 2.6 cm LA Systolic Diameter MM 2.8 cm LA Ao Ratio MM 1.1 MV E Point Septal Separation 0.8 cm AV Cusp Separation MM 1.0 cm DOPPLER AV Peak Velocity 134.6 cm/s AV Peak Gradient 7.3 mmHg Mitral E Point Velocity 73.4 cm/s Mitral A Point Velocity 93.4 cm/s Mitral E to A Ratio 0.8 MV Deceleration Time 298.1 ms MV E' Velocity 8.5 cm/s Mitral E to MV E' Ratio 8.6 TR Peak Velocity 191.5 cm/s TR Peak Gradient 14.7 mmHg Right Ventricular Systolic Press 19.7 mmHg PV Peak Velocity 116.3 cm/s PV Peak Gradient 5.4 mmHg FINDINGS Left Ventricle Left ventricular ejection fraction is estimated at 55-60%. Mild LVH.left ventricular cavity size normal. Normal diastolic filling pattern Right Ventricle Normal right ventricular size and function. Right Atrium Normal right atrial size. Left Atrium Normal left atrial size. Mitral Valve Mitral valve thickened. mild mitral regurgitation. Aortic Valve Trileaflet aortic valve. Diffuse thickening (sclerosis) of the aortic valve cusps without reduced excursion. Tricuspid Valve Mild tricuspid regurgitation.structurally normal tricuspid valve. Pulmonic Valve Trace to mild pulmonic regurgitation. Pericardium Normal pericardium. No pericardial effusion. Aorta Normal size aortic root and proximal ascending aorta. CONCLUSIONS 1. Normal size and systolic function with LVH 2. Mild mitral and tricuspid regurgitation. Previewed by: Dr. Goldie Nunez MD (Electronically Signed) Final Date: 28 June 2022 17:59
[2022-06-28 20:14] LABS: Glucose,Whole Blood 135 mg/dL (70-110)
--- NOTE | 2022-06-28 20:41 | HP ---
HISTORY AND PHYSICAL CHIEF COMPLAINT: Dizziness. HISTORY OF PRESENT ILLNESS: This is a 81-year-old woman with a past medical history of multiple medical problems including diabetes mellitus, hypertension, hyperlipidemia, was complaining of dizziness for the last several months. The patient came to [facility]. The patient was found to have a troponin of 0.[address]-segment elevation myocardial infarction. Cardiology planning a cardiac catheterization. CT scan of the brain showed some white matter changes, some atrophy. No fever. No cough. PAST MEDICAL HISTORY: Reviewed, include diabetes, hypertension. Rest of the history and rest of the chart is noted. HOME MEDICATIONS: Reviewed include Norvasc. Doses and rest of medication noted. ALLERGIES: None. FAMILY HISTORY: No history of heart disease or strokes in the family. SOCIAL HISTORY: No history of smoking, or alcohol. REVIEW OF SYSTEMS: A 14-point review is negative except as mentioned earlier. PHYSICAL EXAMINATION: VITAL SIGNS: Pulse is 65, blood pressure 166/66. No orthostatic changes. HEENT: Conjunctivae normal. No nystagmus. NECK: No jugular venous distention. CARDIOVASCULAR: S1 and S2 muffled. CHEST: Clear to auscultation. ABDOMEN: Soft, nontender. LEGS: No edema. NERVOUS SYSTEM: No focal deficit. SKIN: No ulcer, rash, bleeding. JOINTS: No active deforming arthropathy. LABORATORY DATA: Reviewed. CT scan reviewed personally. ASSESSMENT: 1. Troponin 0.123. Possible acute [id number]-CL-[id number]-elevation myocardial infarction for cardiac catheterization. 2. Dizziness for evaluation, possible BPPV. 3. Hypertension. 4. Diabetes mellitus, type 2. 5. Hyperlipidemia. RECOMMENDATION AND DISCUSSION: This 81-year-old woman presented with multiple complex medical issues. We will monitor the patient closely. Recommend antiplatelet agents and complete neurovascular workup. Cardiology is planning cardiac catheterization. We will resume the home medications. Use Antivert symptomatically. Prognosis guarded. Further recommendations to follow. MMODL / IJN: [id number] /
[2022-06-28] MEDS ORDERED: ATORVASTATIN 40 MG TAB PO SCH (21:00)
[2022-06-28] MEDS ORDERED: ASPIRIN 81 MG PO SCH (21:00)
[2022-06-28 23:14] LABS: Chol/HDL Ratio 3.27 Ratio; LDL Cholesterol,Calculated 176.2 mg/dL (0.0-131.0)
[2022-06-29] MEDS: SODIUM CHLORIDE 0.9% 1,000 ML in EMPTY BAG 1 BAG IV SCH (03:27)
[2022-06-29] MEDS: SODIUM CHLORIDE 0.9% 1,000 ML IV SCH (05:58)
[2022-06-29 06:07] LABS: Glucose,Whole Blood 104 mg/dL (70-110)
[2022-06-29] MEDS ORDERED: HEPARIN SODIUM,PORCINE 10,000 UNIT in SODIUM CHLORIDE 0.9% 1,000 ML IRRIGATION PRN (07:00)
[2022-06-29] MEDS ORDERED: HEPARIN SODIUM,PORCINE 2,500 UNIT in SODIUM CHLORIDE 0.9% 250 ML IRRIGATION PRN (07:00)
[2022-06-29] MEDS: MECLIZINE 12.5 MG TAB PO SCH (08:30)
[2022-06-29] MEDS: LISINOPRIL-HCTZ 20-12.5 MG 1 EACH TAB PO SCH (08:30)
[2022-06-29] MEDS: amLODIPine 5 MG TAB PO SCH (08:30)
[2022-06-29] MEDS ORDERED: ASPIRIN 81 MG PO SCH (09:00)
[2022-06-29] MEDS ORDERED: ATORVASTATIN 40 MG TAB PO SCH (09:00)
[2022-06-29] MEDS ORDERED: ISOSORBIDE MONONITRATE ER 30 MG TAB.ER.24H PO SCH (09:00)
[2022-06-29 09:23] VITALS: RESP 20
[2022-06-29 10:45] LABS: Basophils % (A) 0 %; Eosinophils # (A) 0.2 k/uL (0-0.7); Eosinophils % (A) 3 %; HCT 36.3 % (34.0-46.0); HGB 12.1 gm/dL (11.4-16.0); Lymphocytes # (A) 1.5 k/uL (1.0-4.8); Lymphocytes % (A) 18 %; MCH 31.7 pg (25.0-35.0); MCHC 33.2 g/dL (31.0-37.0); MCV 95.5 fL (80.0-100.0); Mean Platelet Volume 8.4; Monocytes # (A) 0.4 k/uL (0-1.0); Monocytes % (A) 5 %; Neutrophils # (A) 6.1 k/uL (1.3-7.7); Neutrophils % (A) 73 %; Platelet Count 178 k/uL (150-450); RBC 3.81 m/uL (3.80-5.40); RDW 12.3 % (11.5-15.5); WBC 8.3 k/uL (3.8-10.6)
[2022-06-29 11:06] LABS: African American GFR (CKD) >90 (>60 ml/min/1.73 sqM); Anion Gap 6 mmol/L; Blood Urea Nitrogen 15 mg/dL (7-17); Calcium 8.5 mg/dL (8.4-10.2); Carbon Dioxide 24 mmol/L (22-30); Chloride 111 mmol/L (98-107); Glucose 126 mg/dL (74-99); Magnesium 1.8 mg/dL (1.6-2.3); Non-African American GFR(CKD) 86 (>60 ml/min/1.73 sqM); Potassium 3.7 mmol/L (3.5-5.1); Sodium 141 mmol/L (137-145)
[2022-06-29 11:32] LABS: Glucose,Whole Blood 115 mg/dL (70-110)
[2022-06-29 11:34] VITALS: BP 149/64; PULSE 66; TEMP 98.3
--- NOTE | 2022-06-29 14:20 | PN ---
PROGRESS NOTE This lady came in with dizziness, had no significant bradycardia, heart rate lowest was in the 40s. I performed a cardiac cath because of elevated troponin. She has a 90% lesion in the diagonal branch, small vessel. No LAD disease of significance. We will continue medical therapy. I explained this to the patient again and answered all her questions. LV function is normal by echo and by catheterization. I am recommending that she will be on Imdur and we will increase activity, perform an event monitor and she will be discharged. I will see her in the office in 1 week. Vitals are stable. S1 and S2 heard normally. Short systolic murmur noted. Lungs are clear. Abdominal and lower extremities exam unchanged. Right radial site is clean and dry with a good pulse. MMODL / IJN: [id number] /
--- NOTE | 2022-06-30 20:53 | P.DS ---
Providers Date of admission: 06/27/22 20:45 Expected date of discharge: 06/29/22 Attending physician: Hoa Middleton MD Consults: 06/27/22 20:45 Consult Physician Urgent Consulting Provider: [facility] Consult Reason/Comments: NSTEMI Do you want consulting provider notified?: Yes 06/28/22 11:18 Consult Physician Routine Consulting Provider: Lena Rico Consult Reason/Comments: dizziness Do you want consulting provider notified?: Yes Primary care physician: Luis Eduardo Villalba Hospital Course: Final diagnosis Dizziness, for evaluation, possible BPPV Troponin elevation 0.123, NSTEMI is post cardiac catheterization recommending maximizing medical management Hypertension Diabetes mellitus, type II Hyperlipidemia Discharge disposition Patient is being discharged in a stable condition with guarded prognosis to home. Patient will follow-up with Dr. Villalba in the outpatient setting upon discharge. Patient is to continue with an event monitor on discharge and follow-up with cardiology outpatient as scheduled. Imdur will be increased and patient will also be given meclizine and recommend neurology follow-up outpatient. Total time taken is greater than 35 minutes. Hospital course This is a 72-year-old female who was recently admitted persistent dizziness had been ongoing for a few months and being evaluated closely by cardiology along with neurology. Undergoing neurological workup with concerns of possible BPPV and being started on meclizine. Patient also evaluated by cardiology and given elevation underwent cardiac catheterization with no stenting and recommending maximizing medical management with close outpatient follow-up. Patient will have an event monitor on discharge as well. Please refer to other consultation notes for further HPI. Patient has been cleared by consultations for discharge today. Encourage the patient to follow- up with primary care provider as well. Currently no reports of chest pain, shortness of breath, or palpitations. Patient is afebrile. No reports of nausea or vomiting and patient is tolerating diet. Patient will be discharged home today. Physical exam: Gen: This is a 81-year-old female who is awake, alert and oriented 3, thin built, elderly appearing HEENT: Head is atraumatic, normocephalic. Pupils equal, round. Sclerae is anicteric. NECK: Supple. No JVD. No lymphadenopathy. No thyromegaly. LUNGS: Clear to auscultation. No wheezes or rhonchi. No intercostal retractions. HEART: S1, S2 are muffled ABDOMEN: Soft. Bowel sounds are present. No masses. No tenderness. EXTREMITIES: No pedal edema. No calf tenderness. NEUROLOGICAL: Patient is awake, alert and oriented x3. Cranial nerves 2 through 12 are grossly intact. Please refer to medication reconciliation sheet for a list of medications. The impression and plan of care has been dictated by Ewelina Reynoso, Nurse Practitioner as directed. Dr. David MD I have performed a history and examination and MDM of this patient, discussed the same with the dictator, and agree with the dictator's assessment and plan as written ,documented as a scribe. Based on total visit time, I have performed more than 50% of the visit. Patient Condition at Discharge: Fair Plan - Discharge Summary Discharge Rx Participant: No New Discharge Prescriptions: New Atorvastatin [Lipitor] 40 mg PO DAILY #30 tab Nitroglycerin Sl Tabs [Nitrostat] 0.4 mg SUBLINGUAL Q5M PRN #30 tab PRN Reason: Chest Pain Meclizine [Antivert] 6.25 mg PO TID PRN #20 tab PRN Reason: Vertigo Isosorbide Mononitrate ER [Imdur] 30 mg PO DAILY #30 tab Continue Multivitamins, Thera [Multivitamin (formulary)] 1 tab PO DAILY Lutein 10 mg PO BID Cinnamon Bark [Cinnamon] 500 mg PO DAILY Lisinopril-Hctz 20-12.5 mg [Zestoretic 20-12.5] 1 tab PO DAILY amLODIPine [Norvasc] 5 mg PO DAILY Propylene Glycol/Peg 400 [Systane Ultra 0.4-0.3% Eye Drp] 1 drop BOTH EYES DAILY Calcium Citrate/Vitamin D3 [Calcitrate + Vit D Caplet] 1 tab PO BID Magnesium 200 mg PO DAILY Aspirin EC [Ecotrin Low Dose] 81 mg PO HS Discharge Medication List Cinnamon Bark [Cinnamon] 500 mg PO DAILY 05/28/16 [History] Lutein 10 mg PO BID 05/28/16 [History] Multivitamins, Thera [Multivitamin (formulary)] 1 tab PO DAILY 05/28/16 [History] Lisinopril-Hctz 20-12.5 mg [Zestoretic 20-12.5] 1 tab PO DAILY 04/22/17 [History] amLODIPine [Norvasc] 5 mg PO DAILY 05/17/17 [History] Propylene Glycol/Peg 400 [Systane Ultra 0.4-0.3% Eye Drp] 1 drop BOTH EYES DAILY 11/25/17 [History] Calcium Citrate/Vitamin D3 [Calcitrate + Vit D Caplet] 1 tab PO BID 06/17/18 [History] Magnesium 200 mg PO DAILY 06/17/18 [History] Aspirin EC [Ecotrin Low Dose] 81 mg PO HS 06/27/22 [History] Atorvastatin [Lipitor] 40 mg PO DAILY #30 tab 06/29/22 [Rx] Isosorbide Mononitrate ER [Imdur] 30 mg PO DAILY #30 tab 06/29/22 [Rx] Meclizine [Antivert] 6.25 mg PO TID PRN #20 tab 06/29/22 [Rx] Nitroglycerin Sl Tabs [Nitrostat] 0.4 mg SUBLINGUAL Q5M PRN #30 tab 06/29/22 [Rx] Follow up Appointment(s)/Referral(s): Carlito Farfan MD [STAFF PHYSICIAN] - 1 Week (office will call with follow up appointment date and time) Denzel Ribera MD [Medical Doctor] - 1 Week (office will call with appointment date and time) Luis Eduardo Villalba MD [Primary Care Provider] - 07/01/22 3:15 pm Ambulatory/Diagnostic Orders: Complete Blood Count w/diff [LAB.AMB] Time Frame: 3 Days, Location: None Selected Patient Instructions/Handouts: Heart Healthy Diet (DC), After Radial Heart Catheterization (GEN) Activity/Diet/Wound Care/Special Instructions: Patient to receive an event monitor on discharge Activity Limited until follow-up Follow-up with primary care provider on discharge Follow-up with cardiology outpatient Continue taking medications as prescribed Continue heart healthy diet Recommend outpatient follow-up with neurology Discharge Disposition: HOME SELF-CARE
== END 2022-06-29 13:39 | disposition home or self-care (01) | DRG 282 ==
LOC: EC 18:06 → 3SCARD 20:45
PROVIDERS: ADMIT Internal Medicine; ATTEND Internal Medicine
PROC: B2111ZZ Fluoroscopy of Multiple Coronary Arteries using Low Osmolar Contrast (ICD-10-PCS; 2022-06-28)
PROC: B2151ZZ Fluoroscopy of Left Heart using Low Osmolar Contrast (ICD-10-PCS; 2022-06-28)
PROC: 4A023N7 Measurement of Cardiac Sampling and Pressure, Left Heart, Percutaneous Approach (ICD-10-PCS; principal; 2022-06-28 18:20)
DX: I21.4 Non-ST elevation (NSTEMI) myocardial infarction (principal); G31.89 Other specified degenerative diseases of nervous system; E78.5 Hyperlipidemia, unspecified; H81.10 Benign paroxysmal vertigo, unspecified ear; I10 Essential (primary) hypertension; E11.9 Type 2 diabetes mellitus without complications; R00.1 Bradycardia, unspecified; E86.1 Hypovolemia; J33.8 Other polyp of sinus; I08.1 Rheumatic disorders of both mitral and tricuspid valves; F41.9 Anxiety disorder, unspecified; I25.10 Atherosclerotic heart disease of native coronary artery without angina pectoris; M35.3 Polymyalgia rheumatica; Z79.899 Other long term (current) drug therapy; Z79.82 Long term (current) use of aspirin; Z85.820 Personal history of malignant melanoma of skin
CPT/HCPCS: 36415; 70450; 71046; 80048; 80053; 80061; 81001; 82607; 82746; 83605; 83735; 83921; 84443; 84484; 85025; 85610; 85730; 93005; 93270; 93306; 93458; 93880; 96374; 96375; 99285

== ENCOUNTER 2022-11-28 23:55 | Emergency (ER) | payer MEDICARE ==
[2022-11-29] MEDS ORDERED: SODIUM CHLORIDE 0.9% 500 ML 500 ML IV STA (00:20)
--- NOTE | 2022-11-29 00:33 | ED ---
General Adult HPI - General Chief complaint: Weakness Stated complaint: Pain under left arm Time Seen by Provider: 11/29/22 00:09 Source: patient Mode of arrival: ambulatory Limitations: no limitations - History of Present Illness Initial comments: 81-year-old female presenting with chief complaint of chest wall pain. Patient states that this evening she started having pain in her left axilla that was sharp in nature. Pain is reproducible. Patient also states that for the last 3-4 days she has felt generally weak and fatigued. Patient states that she has been under a lot of stress and very anxious lately because of illnesses and loss within her family and friend group. Denies shortness of breath, palpitations, abdominal pain, nausea, vomiting, URI-like symptoms, dysuria, hematuria, flank pain, numbness, tingling, headache, vision or hearing changes. - Related Data Home Medications Medication Instructions Recorded Confirmed Cinnamon Bark [Cinnamon] 500 mg PO DAILY 05/28/16 06/27/22 Lutein 10 mg PO BID 05/28/16 06/27/22 Multivitamins, Thera [Multivitamin 1 tab PO DAILY 05/28/16 06/27/22 (formulary)] Lisinopril-Hctz 20-12.5 mg 1 tab PO DAILY 04/22/17 06/27/22 [Zestoretic 20-12.5] amLODIPine [Norvasc] 5 mg PO DAILY 05/17/17 06/27/22 Propylene Glycol/Peg 400 [Systane 1 drop BOTH EYES DAILY 11/25/17 06/27/22 Ultra 0.4-0.3% Eye Drp] Calcium Citrate/Vitamin D3 1 tab PO BID 06/17/18 06/27/22 [Calcitrate + Vit D Caplet] Magnesium 200 mg PO DAILY 06/17/18 06/27/22 Aspirin EC [Ecotrin Low Dose] 81 mg PO HS 06/27/22 06/27/22 Previous Rx's Medication Instructions Recorded Atorvastatin [Lipitor] 40 mg PO DAILY #30 tab 06/29/22 Isosorbide Mononitrate ER [Imdur] 30 mg PO DAILY #30 tab 06/29/22 Meclizine [Antivert] 6.25 mg PO TID PRN #20 tab 06/29/22 Nitroglycerin Sl Tabs [Nitrostat] 0.4 mg SUBLINGUAL Q5M PRN #30 tab 06/29/22 Allergies Allergy/AdvReac Type Severity Reaction Status Date / Time No Known Allergies Allergy Verified 06/27/22 20:56 Review of Systems ROS Statement: Those systems with pertinent positive or pertinent negative responses have been documented in the HPI. ROS Other: All systems not noted in ROS Statement are negative. Past Medical History Past Medical History: Diabetes Mellitus, Hyperlipidemia, Hypertension Additional Past Medical History / Comment(s): PALPITATIONS-BBB. polymyalgia rheumatica History of Any Multi-Drug Resistant Organisms: None Reported Past Surgical History: Cardiac Ablation, Section Additional Past Surgical History / Comment(s): SINUS SURGERY, CARDIAC ABLATION FOR PVC x 3. COLONOSCOPY, removal of melanoma Past Anesthesia/Blood Transfusion Reactions: No Reported Reaction Past Psychological History: Anxiety Smoking Status: Never smoker Past Alcohol Use History: None Reported Past Drug Use History: None Reported - Past Family History Mother Family Medical History: No Reported History General Exam Limitations: no limitations General appearance: alert, in no apparent distress Head exam: Present: atraumatic, normocephalic, normal inspection Eye exam: Present: normal appearance, EOMI Neck exam: Present: normal inspection, full ROM Respiratory exam: Present: normal lung sounds bilaterally, chest wall tenderness. Absent: respiratory distress, wheezes, rales, rhonchi, stridor Cardiovascular Exam: Present: regular rate, normal rhythm, normal heart sounds. Absent: systolic murmur, diastolic murmur, rubs, gallop, clicks Neurological exam: Present: alert, oriented X3, CN II-XII intact Psychiatric exam: Present: normal affect, normal mood Skin exam: Present: warm, dry, intact, normal color. Absent: rash Course Vital Signs 11/29/22 11/29/22 11/29/22 00:01 02:00 02:29 Temperature 98.4 F 98.2 F Pulse Rate 73 62 Respiratory 18 16 Rate Blood Pressure 161/74 134/77 O2 Sat by Pulse 100 98 Oximetry EKG Findings - EKG Comments: EKG Findings:: Sinus rhythm with sinus arrhythmia. Ventricular rate 65. ID int erval 202. QRS 86. QT 402. QTC 414. No acute changes when compared to previous EKG Medical Decision Making - Medical Decision Making Was pt. sent in by a medical professional or institution (, PA, FACILITY ENGINEER, urgent care, hospital, or usp...) When possible be specific @ -No Did you speak to anyone other than the patient for history (EMS, parent, family, police, friend...)? What history was obtained from this source @ -No Did you review nursing and triage notes (agree or disagree)? Why? @ -I reviewed and agree with nursing and triage notes Were old charts reviewed (outside hosp., previous admission, EMS record, old EKG, old radiological studies, urgent care reports/EKG's, usp records)? Report findings @ -No old charts were reviewed Differential Diagnosis (chest pain, altered mental status, abdominal pain women, abdominal pain men, vaginal bleeding, weakness, fever, dyspnea, syncope, headache, dizziness, GI bleed, back pain, seizure, CVA, palpatations, mental health, musculoskeletal)? @ -MDM Differential Weakness: Hypoglycemia, shock, sepsis, hyponatremia, anemia, infection, NE, ETOH, adverse medicine reaction, overdose, stroke. ... This is not meant to be an all- inclusive list EKG interpreted by me (3pts min.). @ -As above X-rays interpreted by me (1pt min.). @ -Chest x-ray shows no acute process CT interpreted by me (1pt min.). @ -None done U/S interpreted by me (1pt. min.). @ -None done What testing was considered but not performed or refused? (CT, X-rays, U/S, labs)? Why? @ -None What meds were considered but not given or refused? Why? @ -None Did you discuss the management of the patient with other professionals (professionals i.e. , PA, FACILITY ENGINEER, lab, RT, psych nurse, drug abuse social worker, materials management supervisor, teacher, classification officer, casework supervisor)? Give summary @ -No Was smoking cessation discussed for >3mins.? @ -No Was critical care preformed (if so, how long)? @ -No Were there social determinants of health that impacted care today? How? (Homelessness, low income, unemployed, alcoholism, drug addiction, transportation, low edu. Level, literacy, decrease access to med. care, skilled nursing, rehab)? @ -No Was there de-escalation of care discussed even if they declined (Discuss DNR or withdrawal of care, Hospice)? DNR status @ -No What co-morbidities impacted this encounter? (DM, HTN, Smoking, COPD, CAD, Cancer, CVA, ARF, Chemo, Hep., AIDS, mental health diagnosis, sleep apnea, morbid obesity)? @ -None Was patient admitted / discharged? Hospital course, mention meds given and route, prescriptions, significant lab abnormalities, going to OR and other pertinent info. @ -81-year-old female presenting with chief complaint of generalized weakness and left-sided chest wall pain that started this evening. Patient admits that she has had a lot of stressors in her personal life recently and has been extremely anxious. On physical examination her lungs are clear to auscultation, pain is reproducible on palpation, no lower extremity swelling. Lab work shows no leukocytosis or anemia. Troponin is negative. Urine shows no infectious p rocess. Chest x-ray is negative. EKG shows no ischemic changes. On reassessment patient states that her pain is completely resolved. She is educated on today's findings, follow up with PCP. Follow-up with PCP. Report back to ER with any new or worsening symptoms. Discussed return parameters and answered all questions. Patient conveyed verbal understanding and agreed to the plan. I discussed this case in detail with my attending Dr. Walters Undiagnosed new problem with uncertain prognosis? @ -No Drug Therapy requiring intensive monitoring for toxicity (Heparin, Nitro, Insulin, Cardizem)? @ -No Were any procedures done? @ -No Diagnosis/symptom? @ -Chest wall pain, anxiety Acute, or Chronic, or Acute on Chronic? @ -Acute Uncomplicated (without systemic symptoms) or Complicated (systemic symptoms)? @ -Uncomplicated Side effects of treatment? @ -No Exacerbation, Progression, or Severe Exacerbation? @ -No Poses a threat to life or bodily function? How? (Chest pain, USA, NE, pneumonia, PE, COPD, DKA, ARF, appy, cholecystitis, CVA, Diverticulitis, Homicidal, Suicidal, threat to staff... and all critical care pts) @ -Low likelihood - Lab Data Result diagrams: 11/29/22 00:31 11/29/22 00:31 Lab Results 11/29/22 11/29/22 11/29/22 Range/Units 00:31 00:31 00:31 WBC 7.3 (3.8-10.6) k/uL RBC 4.17 (3.80-5.40) m/uL Hgb 13.2 (11.4-16.0) gm/dL Hct 39.1 (34.0-46.0) % MCV 93.8 (80.0-100.0) fL MCH 31.7 (25.0-35.0) pg MCHC 33.8 (31.0-37.0) g/dL RDW 12.1 (11.5-15.5) % Plt Count 279 (150-450) k/uL MPV 8.0 Neutrophils % 53 % Lymphocytes % 35 % Monocytes % 8 % Eosinophils % 2 % Basophils % 0 % Neutrophils # 3.9 (1.3-7.7) k/uL Lymphocytes # 2.5 (1.0-4.8) k/uL Monocytes # 0.6 (0-1.0) k/uL Eosinophils # 0.2 (0-0.7) k/uL Basophils # 0.0 (0-0.2) k/uL PT 9.9 (9.0-12.0) sec INR 0.9 (<1.2) APTT 21.1 L (22.0-30.0) sec Sodium 137 (137-145) mmol/L Potassium 3.5 (3.5-5.1) mmol/L Chloride 103 (98-107) mmol/L Carbon Dioxide 25 (22-30) mmol/L Anion Gap 9 mmol/L BUN 18 H (7-17) mg/dL Creatinine 0.75 (0.52-1.04) mg/dL Est GFR (CKD-EPI)AfAm 88 (>60 ml/min/1.73 sqM) Est GFR (CKD-EPI)NonAf 76 (>60 ml/min/1.73 sqM) Glucose 117 H (74-99) mg/dL Plasma Lactic Acid Raffaele (0.7-2.0) mmol/L Calcium 10.5 H (8.4-10.2) mg/dL Phosphorus 4.4 (2.5-4.5) mg/dL Magnesium 2.0 (1.6-2.3) mg/dL Total Bilirubin 0.5 (0.2-1.3) mg/dL AST 30 (14-36) U/L ALT 37 H (4-34) U/L Alkaline Phosphatase 54 (38-126) U/L Troponin I (0.000-0.034) ng/mL Total Protein 7.7 (6.3-8.2) g/dL Albumin 4.5 (3.5-5.0) g/dL Urine Color Urine Appearance (Clear) Urine pH (5.0-8.0) Ur Specific [place] (1.001-1.035) Urine Protein (Negative) Urine Glucose (UA) (Negative) Urine Ketones (Negative) Urine Blood (Negative) Urine Nitrite (Negative) Urine Bilirubin (Negative) Urine Urobilinogen (<2.0) mg/dL Ur Leukocyte Esterase (Negative) Urine WBC (0-5) /hpf Amorphous Sediment (None) /hpf 11/29/22 11/29/22 11/29/22 Range/Units 00:31 00:31 00:31 WBC (3.8-10.6) k/uL RBC (3.80-5.40) m/uL Hgb (11.4-16.0) gm/dL Hct (34.0-46.0) % MCV (80.0-100.0) fL MCH (25.0-35.0) pg MCHC (31.0-37.0) g/dL RDW (11.5-15.5) % Plt Count (150-450) k/uL MPV Neutrophils % % Lymphocytes % % Monocytes % % Eosinophils % % Basophils % % Neutrophils # (1.3-7.7) k/uL Lymphocytes # (1.0-4.8) k/uL Monocytes # (0-1.0) k/uL Eosinophils # (0-0.7) k/uL Basophils # (0-0.2) k/uL PT (9.0-12.0) sec INR (<1.2) APTT (22.0-30.0) sec Sodium (137-145) mmol/L Potassium (3.5-5.1) mmol/L Chloride (98-107) mmol/L Carbon Dioxide (22-30) mmol/L Anion Gap mmol/L BUN (7-17) mg/dL Creatinine (0.52-1.04) mg/dL Est GFR (CKD-EPI)AfAm (>60 ml/min/1.73 sqM) Est GFR (CKD-EPI)NonAf (>60 ml/min/1.73 sqM) Glucose (74-99) mg/dL Plasma Lactic Acid Raffaele 1.2 (0.7-2.0) mmol/L Calcium (8.4-10.2) mg/dL Phosphorus (2.5-4.5) mg/dL Magnesium (1.6-2.3) mg/dL Total Bilirubin (0.2-1.3) mg/dL AST (14-36) U/L ALT (4-34) U/L Alkaline Phosphatase (38-126) U/L Troponin I <0.012 (0.000-0.034) ng/mL Total Protein (6.3-8.2) g/dL Albumin (3.5-5.0) g/dL Urine Color Colorless Urine Appearance Cloudy H (Clear) Urine pH 8.0 (5.0-8.0) Ur Specific [place] 1.007 (1.001-1.035) Urine Protein Negative (Negative) Urine Glucose (UA) Negative (Negative) Urine Ketones Negative (Negative) Urine Blood Negative (Negative) Urine Nitrite Negative (Negative) Urine Bilirubin Negative (Negative) Urine Urobilinogen <2.0 (<2.0) mg/dL Ur Leukocyte Esterase Negative (Negative) Urine WBC 1 (0-5) /hpf Amorphous Sediment Rare H (None) /hpf Disposition Clinical Impression: Anxiety, Chest wall pain Disposition: HOME SELF-CARE Condition: Good Instructions (If sedation given, give patient instructions): Chest Pain (ED), Anxiety (ED) Additional Instructions: Follow-up with PCP. Report back to ER with any new or worsening symptoms. Is patient prescribed a controlled substance at d/c from ED?: No Referrals: Luis Eduardo Villalba [Primary Care Provider] - 1-2 days Time of Disposition: 02:21
[2022-11-29 00:52] LABS: Basophils % (A) 0 %; Eosinophils # (A) 0.2 k/uL (0-0.7); Eosinophils % (A) 2 %; HCT 39.1 % (34.0-46.0); HGB 13.2 gm/dL (11.4-16.0); Lymphocytes # (A) 2.5 k/uL (1.0-4.8); Lymphocytes % (A) 35 %; MCH 31.7 pg (25.0-35.0); MCHC 33.8 g/dL (31.0-37.0); MCV 93.8 fL (80.0-100.0); Monocytes # (A) 0.6 k/uL (0-1.0); Monocytes % (A) 8 %; Neutrophils # (A) 3.9 k/uL (1.3-7.7); Neutrophils % (A) 53 %; Platelet Count 279 k/uL (150-450); RBC 4.17 m/uL (3.80-5.40); RDW 12.1 % (11.5-15.5); WBC 7.3 k/uL (3.8-10.6)
[2022-11-29 01:07] LABS: Amorphous Sediment,Urine Rare /hpf; Appearance,Urine Cloudy (Clear); Bilirubin,Urine Negative (Negative); Blood,Urine Negative (Negative); Color,Urine Colorless; Glucose,Urine (UA) Negative (Negative); Ketones,Urine Negative (Negative); Leukocyte Esterase,Urine Negative (Negative); Nitrite,Urine Negative (Negative); Protein,Urine Negative (Negative); Specific Gravity,Urine 1.007 (1.001-1.035); Urobilinogen,Urine <2.0 mg/dL (<2.0); WBC,Urine 1 /hpf (0-5)
[2022-11-29 01:08] LABS: INR 0.9 (<1.2); Prothrombin Time 9.9 sec (9.0-12.0)
[2022-11-29 01:22] LABS: Partial Thromboplastin Time 21.1 sec (22.0-30.0)
--- NOTE | 2022-11-29 01:22 | XR ---
EXAM: XR Chest, 2 Views CLINICAL HISTORY: ITS.REASON XR Reason: Weakness TECHNIQUE: Frontal and lateral views of the chest. COMPARISON: No relevant prior studies available. FINDINGS: Lungs: Unremarkable. No consolidation. Pleural space: Unremarkable. No pneumothorax. Heart: Unremarkable. No cardiomegaly. Mediastinum: Unremarkable. Bones/joints: Unremarkable. IMPRESSION: Normal chest x-rays.
[2022-11-29 01:29] LABS: ALT 37 U/L (4-34); AST 30 U/L (14-36); African American GFR (CKD) 88 (>60 ml/min/1.73 sqM); Albumin 4.5 g/dL (3.5-5.0); Alkaline Phosphatase 54 U/L (38-126); Blood Urea Nitrogen 18 mg/dL (7-17); Calcium 10.5 mg/dL (8.4-10.2); Carbon Dioxide 25 mmol/L (22-30); Glucose 117 mg/dL (74-99); Non-African American GFR(CKD) 76 (>60 ml/min/1.73 sqM); Phosphorus 4.4 mg/dL (2.5-4.5); Total Bilirubin 0.5 mg/dL (0.2-1.3); Total Protein 7.7 g/dL (6.3-8.2)
[2022-11-29 01:51] LABS: Anion Gap 9 mmol/L; Chloride 103 mmol/L (98-107); Potassium 3.5 mmol/L (3.5-5.1); Sodium 137 mmol/L (137-145)
[2022-11-29 02:16] VITALS: BP 134/77; PULSE 62; RESP 16
[2022-11-29 02:30] VITALS: TEMP 98.2
== END 2022-11-29 02:30 | disposition home or self-care (01) ==
LOC: EC 23:55
DX: R07.89 Other chest pain (principal); F41.9 Anxiety disorder, unspecified; I10 Essential (primary) hypertension; E11.9 Type 2 diabetes mellitus without complications; Z79.82 Long term (current) use of aspirin; Z79.899 Other long term (current) drug therapy
CPT/HCPCS: 36415; 71046; 80053; 81001; 83605; 83735; 84100; 84484; 85025; 85610; 85730; 93005; 96360; 96361; 99285

== ENCOUNTER 2022-12-14 08:13 | Emergency (ER) | payer MEDICARE ==
[2022-12-14 08:25] VITALS: TEMP 98.2
[2022-12-14 09:13] LABS: Basophils % (A) 0 %; Eosinophils # (A) 0.1 k/uL (0-0.7); Eosinophils % (A) 1 %; HGB 13.2 gm/dL (11.4-16.0); Lymphocytes # (A) 1.7 k/uL (1.0-4.8); Lymphocytes % (A) 28 %; MCH 31.9 pg (25.0-35.0); MCHC 34.8 g/dL (31.0-37.0); MCV 91.6 fL (80.0-100.0); Mean Platelet Volume 8.1; Monocytes # (A) 0.4 k/uL (0-1.0); Monocytes % (A) 7 %; Neutrophils # (A) 3.7 k/uL (1.3-7.7); Neutrophils % (A) 62 %; Platelet Count 324 k/uL (150-450); RBC 4.15 m/uL (3.80-5.40); RDW 11.9 % (11.5-15.5)
--- NOTE | 2022-12-14 09:19 | ED ---
Psych HPI - General Chief Complaint: Psychiatric Symptoms Stated Complaint: Suicidal Ideations Time Seen by Provider: 12/14/22 08:21 Source: patient, EMS, RN notes reviewed Mode of arrival: EMS Limitations: no limitations - History of Present Illness Initial Comments: 81-year-old female presents emergency Department with chief complaint of anxiety, depression. She was recent started on Paxil. Patient states that she has not want to live anymore because of her symptoms. She states that she is suicidal denies any alcohol or drug use. Patient denies any physical complaints. Patient states she does not currently see a psychiatrist or therapist. - Related Data Home Medications Medication Instructions Recorded Confirmed Calcitonin Nasal [Fortical 1 spray NASAL DAILY 12/14/22 12/14/22 (Miacalcin)] Meclizine [Antivert] 25 mg PO BID PRN 12/14/22 12/14/22 PARoxetine [Paxil] 10 mg PO DAILY 12/14/22 12/14/22 Pravastatin Sodium [Pravachol] 40 mg PO HS 12/14/22 12/14/22 Triamterene/Hydrochlorothiazid 1 tab PO DAILY 12/14/22 12/14/22 [Triamterene-Hctz 37.5-25 mg Tb] amLODIPine [Norvasc] 10 mg PO DAILY 12/14/22 12/14/22 lisinopriL 40 mg PO DAILY 12/14/22 12/14/22 Previous Rx's Medication Instructions Recorded Nitroglycerin Sl Tabs [Nitrostat] 0.4 mg SUBLINGUAL Q5M PRN #30 tab 06/29/22 Allergies Allergy/AdvReac Type Severity Reaction Status Date / Time No Known Allergies Allergy Verified 12/14/22 09:49 Review of Systems ROS Statement: Those systems with pertinent positive or pertinent negative responses have been documented in the HPI. ROS Other: All systems not noted in ROS Statement are negative. Past Medical History Past Medical History: Diabetes Mellitus, Hyperlipidemia, Hypertension Additional Past Medical History / Comment(s): PALPITATIONS-BBB. polymyalgia rheumatica History of Any Multi-Drug Resistant Organisms: None Reported Past Surgical History: Cardiac Ablation, Section Additional Past Surgical History / Comment(s): SINUS SURGERY, CARDIAC ABLATION FOR PVC x 3. COLONOSCOPY, removal of melanoma Past Anesthesia/Blood Transfusion Reactions: No Reported Reaction Past Psychological History: Anxiety Smoking Status: Never smoker Past Alcohol Use History: None Reported Past Drug Use History: None Reported - Past Family History Mother Family Medical History: No Reported History General Exam Limitations: no limitations General appearance: alert, in no apparent distress Head exam: Present: atraumatic, normocephalic, normal inspection Eye exam: Present: normal appearance, PERRL, EOMI. Absent: scleral icterus, conjunctival injection, periorbital swelling ENT exam: Present: normal exam, normal oropharynx, mucous membranes moist Neck exam: Present: normal inspection, full ROM. Absent: tenderness, meningismus, lymphadenopathy Respiratory exam: Present: normal lung sounds bilaterally. Absent: respiratory distress, wheezes, rales, rhonchi, stridor Cardiovascular Exam: Present: regular rate, normal rhythm, normal heart sounds. Absent: systolic murmur, diastolic murmur, rubs, gallop, clicks GI/Abdominal exam: Present: soft, normal bowel sounds. Absent: distended, tenderness, guarding, rebound, rigid Neurological exam: Present: alert, oriented X3 Psychiatric exam: Present: anxious Course Vital Signs 12/14/22 08:20 Temperature 98.2 F Pulse Rate 59 L Respiratory 20 Rate Blood Pressure 181/71 O2 Sat by Pulse 100 Oximetry Medical Decision Making - Medical Decision Making Was pt. sent in by a medical professional or institution (, PA, LINING PRINTER, urgent care, hospital, or custodial...) When possible be specific @ -No Did you speak to anyone other than the patient for history (EMS, parent, family, police, friend...)? What history was obtained from this source @ -No Did you review nursing and triage notes (agree or disagree)? Why? @ -I reviewed and agree with nursing and triage notes Were old charts reviewed (outside hosp., previous admission, EMS record, old EKG, old radiological studies, urgent care reports/EKG's, custodial records)? Report findings @ -No old charts were reviewed Differential Diagnosis (chest pain, altered mental status, abdominal pain women, abdominal pain men, vaginal bleeding, weakness, fever, dyspnea, syncope, headache, dizziness, GI bleed, back pain, seizure, CVA, palpatations, mental health, musculoskeletal)? @ -Differential Mental Health Depression, anxiety, bipolar, psychosis, schizophrenia, borderline personality, situational depression, adjustment disorder, behavioral disorder, brain tumor, malingering, substance abuse, encephalopathy, medication reaction, dementia, hypothyroidism, degenerative neurologic disorder, lupus.... This is not meant to be all-inclusive liste EKG interpreted by me (3pts min.). @ -None X-rays interpreted by me (1pt min.). @ -None done CT interpreted by me (1pt min.). @ -None done U/S interpreted by me (1pt. min.). @ -None done What testing was considered but not performed or refused? (CT, X-rays, U/S, labs)? Why? @ -None What meds were considered but not given or refused? Why? @ -None Did you discuss the management of the patient with other professionals (shirley tucker i.e. , PA, LINING PRINTER, lab, RT, psych nurse, director of social work, facility manager, teacher, senior loan officer, case packer)? Give summary @ -[EPS evaluated the patient and recommended patient be transferred geriatric psych Was smoking cessation discussed for >3mins.? @ -No Was critical care preformed (if so, how long)? @ -No Were there social determinants of health that impacted care today? How? (H omelessness, low income, unemployed, alcoholism, drug addiction, transportation, low edu. Level, literacy, decrease access to med. care, snf, rehab)? @ -No Was there de-escalation of care discussed even if they declined (Discuss DNR or withdrawal of care, Hospice)? DNR status @ -No What co-morbidities impacted this encounter? (DM, HTN, Smoking, COPD, CAD, Cancer, CVA, ARF, Chemo, Hep., AIDS, mental health diagnosis, sleep apnea, morbid obesity)? @ -None Was patient admitted / discharged? Hospital course, mention meds given and route, prescriptions, significant lab abnormalities, going to OR and other pertinent info. @ -Transfer Patient was petitioned, Cert by Dr. Yanez patient is transferred to psychiatric facility. Undiagnosed new problem with uncertain prognosis? @ -No Drug Therapy requiring intensive monitoring for toxicity (Heparin, Nitro, Insulin, Cardizem)? @ -No Were any procedures done? @ -No Diagnosis/symptom? @ -Depression, anxiety Acute, or Chronic, or Acute on Chronic? @ -Acute Uncomplicated (without systemic symptoms) or Complicated (systemic symptoms)? @ -complicated Side effects of treatment? @ -No Exacerbation, Progression, or Severe Exacerbation? @ -No Poses a threat to life or bodily function? How? (Chest pain, [place], [place], pneumonia, PE, COPD, DKA, ARF, appy, cholecystitis, CVA, Diverticulitis, Homicidal, Suicidal, threat to staff... and all critical care pts) @ -yes patient is suicidal - Lab Data Result diagrams: 12/14/22 08:57 12/14/22 08:57 Lab Results 12/14/22 12/14/22 12/14/22 Range/Units 08:57 08:57 08:57 WBC 6.0 (3.8-10.6) k/uL RBC 4.15 (3.80-5.40) m/uL Hgb 13.2 (11.4-16.0) gm/dL Hct 38.0 (34.0-46.0) % MCV 91.6 (80.0-100.0) fL MCH 31.9 (25.0-35.0) pg MCHC 34.8 (31.0-37.0) g/dL RDW 11.9 (11.5-15.5) % Plt Count 324 (150-450) k/uL MPV 8.1 Neutrophils % 62 % Lymphocytes % 28 % Monocytes % 7 % Eosinophils % 1 % Basophils % 0 % Neutrophils # 3.7 (1.3-7.7) k/uL Lymphocytes # 1.7 (1.0-4.8) k/uL Monocytes # 0.4 (0-1.0) k/uL Eosinophils # 0.1 (0-0.7) k/uL Basophils # 0.0 (0-0.2) k/uL Sodium 137 (137-145) mmol/L Potassium 3.0 L (3.5-5.1) mmol/L Chloride 101 (98-107) mmol/L Carbon Dioxide 29 (22-30) mmol/L Anion Gap 7 mmol/L BUN 17 (7-17) mg/dL Creatinine 0.80 (0.52-1.04) mg/dL Est GFR (CKD-EPI)AfAm 81 (>60 ml/min/1.73 sqM) Est GFR (CKD-EPI)NonAf 71 (>60 ml/min/1.73 sqM) Glucose 133 H (74-99) mg/dL Calcium 9.8 (8.4-10.2) mg/dL Total Bilirubin 0.7 (0.2-1.3) mg/dL AST 27 (14-36) U/L ALT 21 (4-34) U/L Alkaline Phosphatase 50 (38-126) U/L Total Protein 7.0 (6.3-8.2) g/dL Albumin 4.1 (3.5-5.0) g/dL Urine Color Urine Appearance (Clear) Urine pH (5.0-8.0) Ur Specific Colstrip (1.001-1.035) Urine Protein (Negative) Urine Glucose (UA) (Negative) Urine Ketones (Negative) Urine Blood (Negative) Urine Nitrite (Negative) Urine Bilirubin (Negative) Urine Urobilinogen (<2.0) mg/dL Ur Leukocyte Esterase (Negative) Urine Opiates Screen (NotDetected) Ur Oxycodone Screen (NotDetected) Urine Methadone Screen (NotDetected) Ur Propoxyphene Screen (NotDetected) Ur Barbiturates Screen (NotDetected) U Tricyclic Antidepress (NotDetected) Ur Phencyclidine Scrn (NotDetected) Ur Amphetamines Screen (NotDetected) U Methamphetamines Scrn (NotDetected) U Benzodiazepines Scrn (NotDetected) Urine Cocaine Screen (NotDetected) U Marijuana (THC) Screen (NotDetected) Coronavirus (PCR) Not Detected (Not Detectd) 12/14/22 Range/Units 10:32 WBC (3.8-10.6) k/uL RBC (3.80-5.40) m/uL Hgb (11.4-16.0) gm/dL Hct (34.0-46.0) % MCV (80.0-100.0) fL MCH (25.0-35.0) pg MCHC (31.0-37.0) g/dL RDW (11.5-15.5) % Plt Count (150-450) k/uL MPV Neutrophils % % Lymphocytes % % Monocytes % % Eosinophils % % Basophils % % Neutrophils # (1.3-7.7) k/uL Lymphocytes # (1.0-4.8) k/uL Monocytes # (0-1.0) k/uL Eosinophils # (0-0.7) k/uL Basophils # (0-0.2) k/uL Sodium (137-145) mmol/L Potassium (3.5-5.1) mmol/L Chloride (98-107) mmol/L Carbon Dioxide (22-30) mmol/L Anion Gap mmol/L BUN (7-17) mg/dL Creatinine (0.52-1.04) mg/dL Est GFR (CKD-EPI)AfAm (>60 ml/min/1.73 sqM) Est GFR (CKD-EPI)NonAf (>60 ml/min/1.73 sqM) Glucose (74-99) mg/dL Calcium (8.4-10.2) mg/dL Total Bilirubin (0.2-1.3) mg/dL AST (14-36) U/L ALT (4-34) U/L Alkaline Phosphatase (38-126) U/L Total Protein (6.3-8.2) g/dL Albumin (3.5-5.0) g/dL Urine Color Colorless Urine Appearance Clear (Clear) Urine pH 7.5 (5.0-8.0) Ur Specific [place]strip 1.004 (1.001-1.035) Urine Protein Negative (Negative) Urine Glucose (UA) Negative (Negative) Urine Ketones Trace H (Negative) Urine Blood Negative (Negative) Urine Nitrite Negative (Negative) Urine Bilirubin Negative (Negative) Urine Urobilinogen <2.0 (<2.0) mg/dL Ur Leukocyte Esterase Negative (Negative) Urine Opiates Screen Not Detected (NotDetected) Ur Oxycodone Screen Not Detected (NotDetected) Urine Methadone Screen Not Detected (NotDetected) Ur Propoxyphene Screen Not Detected (NotDetected) Ur Barbiturates Screen Not Detected (NotDetected) U Tricyclic Antidepress Not Detected (NotDetected) Ur Phencyclidine Scrn Not Detected (NotDetected) Ur Amphetamines Screen Not Detected (NotDetected) U Methamphetamines Scrn Not Detected (NotDetected) U Benzodiazepines Scrn Not Detected (NotDetected) Urine Cocaine Screen Not Detected (NotDetected) U Marijuana (THC) Screen Not Detected (NotDetected) Coronavirus (PCR) (Not Detectd) Disposition Clinical Impression: Suicidal ideation, Depression, Anxiety Disposition: TRANSFER TO PSYCH HOSP/UNIT Referrals: Luis Eduardo Villalba [Primary Care Provider] - 1-2 days
[2022-12-14 09:20] LABS: ALT 21 U/L (4-34); AST 27 U/L (14-36); African American GFR (CKD) 81 (>60 ml/min/1.73 sqM); Albumin 4.1 g/dL (3.5-5.0); Alkaline Phosphatase 50 U/L (38-126); Anion Gap 7 mmol/L; Blood Urea Nitrogen 17 mg/dL (7-17); Calcium 9.8 mg/dL (8.4-10.2); Carbon Dioxide 29 mmol/L (22-30); Chloride 101 mmol/L (98-107); Glucose 133 mg/dL (74-99); Non-African American GFR(CKD) 71 (>60 ml/min/1.73 sqM); Sodium 137 mmol/L (137-145); Total Bilirubin 0.7 mg/dL (0.2-1.3)
[2022-12-14 10:49] LABS: Appearance,Urine Clear (Clear); Bilirubin,Urine Negative (Negative); Blood,Urine Negative (Negative); Color,Urine Colorless; Glucose,Urine (UA) Negative (Negative); Ketones,Urine Trace (Negative); Leukocyte Esterase,Urine Negative (Negative); Nitrite,Urine Negative (Negative); PH, Urine 7.5 (5.0-8.0); Protein,Urine Negative (Negative); Specific Gravity,Urine 1.004 (1.001-1.035); Urobilinogen,Urine <2.0 mg/dL (<2.0)
[2022-12-14 11:12] LABS: Amphetamine Screen,Urine Not Detected (NotDetected); Barbiturate Screen,Urine Not Detected (NotDetected); Benzodiazepines Screen,Urine Not Detected (NotDetected); Cocaine Screen,Urine Not Detected (NotDetected); Methadone Screen, Urine Not Detected (NotDetected); Opiate Screen,Urine Not Detected (NotDetected); Oxycodone Screen, Urine Not Detected (NotDetected); Phencyclidine Screen,Urine Not Detected (NotDetected); Tricyclic Antidepressant,Urine Not Detected (NotDetected); Urn Cannabinoid Scrn Not Detected (NotDetected)
[2022-12-14] MEDS ORDERED: MECLIZINE 25 MG TAB PO PRN (11:46)
[2022-12-14] MEDS ORDERED: NITROGLYCERIN SL TABS 0.4 MG TAB SUBLINGUAL PRN (11:46)
[2022-12-14] MEDS ORDERED: PRAVASTATIN SODIUM 40 MG TAB PO SCH (21:00)
[2022-12-14] MEDS ORDERED: MELATONIN 1 MG TAB PO SCH (21:30)
[2022-12-15 08:11] VITALS: BP 133/66; PULSE 59; RESP 16
[2022-12-15] MEDS ORDERED: TRIAMTERENE-HCTZ 37.5-25MG 1 EACH TAB PO SCH (09:00)
[2022-12-15] MEDS ORDERED: PARoxetine 10 MG TAB PO SCH (09:00)
[2022-12-15] MEDS ORDERED: lisinopriL 20 MG TAB PO SCH (09:00)
[2022-12-15] MEDS ORDERED: CALCITONIN 200 USP/1 NASAL SPRAY 3.7ML BTL NASAL SCH (09:00)
[2022-12-15] MEDS ORDERED: amLODIPine 10 MG TAB PO SCH (09:00)
[2022-12-15] MEDS ORDERED: POTASSIUM CHLORIDE ER 20 MEQ TAB.ER PO STA (11:51)
== END 2022-12-15 21:15 ==
LOC: EC 08:13
DX: R45.851 Suicidal ideations (principal); F32.A Depression, unspecified; F41.9 Anxiety disorder, unspecified; E11.9 Type 2 diabetes mellitus without complications; E78.5 Hyperlipidemia, unspecified; I10 Essential (primary) hypertension; Z20.822 Contact with and (suspected) exposure to COVID-19; Z79.899 Other long term (current) drug therapy
CPT/HCPCS: 36415; 80053; 80306; 81003; 82075; 85025; 87635; 93005; 99285

== ENCOUNTER 2023-08-15 11:00 | Emergency (ER) | payer MEDICARE ==
[2023-08-15 11:20] VITALS: TEMP 98.1
--- NOTE | 2023-08-15 11:45 | ED ---
Back Pain HPI - General Chief Complaint: Back Pain/Injury Stated Complaint: back pain/abd pain Time Seen by Provider: 08/15/23 11:44 Source: patient, RN notes reviewed Mode of arrival: ambulatory Limitations: no limitations - History of Present Illness Initial Comments: 82-year-old female presented to the ER with a chief complaint of right-sided back pain and hip pain. She states this been going on for about 3 weeks. Denies any known injuries or traumas. She states it is a sharp pain in her back and achy in her right hip. She denies any paresthesias or weakness. She has been able to walk. She has been taking [id number] Tylenol without relief. Denies any bowel or bladder incontinence, fevers, chills, saddle paresthesias, radiating pain or history of IV drug use. - Related Data Home Medications Medication Instructions Recorded Confirmed Calcitonin Nasal [Fortical 1 spray NASAL DAILY 12/14/22 12/14/22 (Miacalcin)] Meclizine [Antivert] 25 mg PO BID PRN 12/14/22 12/14/22 PARoxetine [Paxil] 10 mg PO DAILY 12/14/22 12/14/22 Pravastatin Sodium [Pravachol] 40 mg PO HS 12/14/22 12/14/22 Triamterene/Hydrochlorothiazid 1 tab PO DAILY 12/14/22 12/14/22 [Triamterene-Hctz 37.5-25 mg Tb] amLODIPine [Norvasc] 10 mg PO DAILY 12/14/22 12/14/22 lisinopriL 40 mg PO DAILY 12/14/22 12/14/22 Previous Rx's Medication Instructions Recorded Nitroglycerin Sl Tabs [Nitrostat] 0.4 mg SUBLINGUAL Q5M PRN #30 tab 06/29/22 Lidocaine 5% Patch [Lidoderm 5% 1 patch TOPICAL DAILY #10 patch 08/15/23 Patch] Allergies Allergy/AdvReac Type Severity Reaction Status Date / Time No Known Allergies Allergy Verified 08/15/23 11:04 Review of Systems ROS Statement: Those systems with pertinent positive or pertinent negative responses have been documented in the HPI. ROS Other: All systems not noted in ROS Statement are negative. Past Medical History Past Medical History: Diabetes Mellitus, Hyperlipidemia, Hypertension Additional Past Medical History / Comment(s): PALPITATIONS-BBB. polymyalgia rheumatica History of Any Multi-Drug Resistant Organisms: None Reported Past Surgical History: Cardiac Ablation, Section Additional Past Surgical History / Comment(s): SINUS SURGERY, CARDIAC ABLATION FOR PVC x 3. COLONOSCOPY, removal of melanoma Past Anesthesia/Blood Transfusion Reactions: No Reported Reaction Past Psychological History: Anxiety Smoking Status: Never smoker Past Alcohol Use History: None Reported Past Drug Use History: None Reported - Past Family History Mother Family Medical History: No Reported History General Exam Limitations: no limitations General appearance: alert, in no apparent distress Respiratory exam: Present: normal lung sounds bilaterally. Absent: respiratory distress, wheezes, rales, rhonchi, stridor Cardiovascular Exam: Present: regular rate, normal rhythm, normal heart sounds. Absent: systolic murmur, diastolic murmur, rubs, gallop, clicks Extremities exam: Present: normal inspection, full ROM, normal capillary refill. Absent: tenderness, pedal edema, joint swelling, calf tenderness Back exam: Present: normal inspection, tenderness (Right pelvic gurdle), other (Negative straight leg raise bilaterally. Negative internal and external patient of bilateral hips.) Neurological exam: Present: alert, oriented X3, CN II-XII intact Skin exam: Present: warm, dry, intact, normal color. Absent: rash Course Vital Signs 08/15/23 08/15/23 11:00 13:29 Temperature 98.1 F Pulse Rate 60 50 L Respiratory 20 16 Rate Blood Pressure 150/65 131/56 O2 Sat by Pulse 96 99 Oximetry Medical Decision Making - Medical Decision Making Was pt. sent in by a medical professional or institution (, PA, REMANUFACTURING TECHNICIAN, urgent care, hospital, or jail...) When possible be specific @ -No Did you speak to anyone other than the patient for history (EMS, parent, family, police, friend...)? What history was obtained from this source @ -No Did you review nursing and triage notes (agree or disagree)? Why? @ -I reviewed and agree with nursing and triage notes Were old charts reviewed (outside hosp., previous admission, EMS record, old EKG, old radiological studies, urgent care reports/EKG's, jail records)? Report findings @ -No old charts were reviewed Differential Diagnosis (chest pain, altered mental status, abdominal pain women, abdominal pain men, vaginal bleeding, weakness, fever, dyspnea, syncope, headache, dizziness, GI bleed, back pain, seizure, CVA, palpatations, mental health, musculoskeletal)? @ -Differential Musculoskeletal: Muscular strain, contusion, ligament sprain, fracture, arthritis, septic arthritis, bursitis, cellulitis, muscle spasm, nerve compression, DVT, arterial occlusion, herpes zoster, electrolyte abnormality, tumor.... This is not meant to be in all inclusive list EKG interpreted by me (3pts min.). @ -None X-rays interpreted by me (1pt min.). @ -Right hip AP pelvis x-ray interpreted by me significant for bilateral hip osteoarthritis. No acute fractures or dislocations. Lumbar spine x-rays interpreted by me negative for acute fractures or dislocations. CT interpreted by me (1pt min.). @ -None done U/S interpreted by me (1pt. min.). @ -None done What testing was considered but not performed or refused? (CT, X-rays, U/S, labs)? Why? @ -None What meds were considered but not given or refused? Why? @ -None Did you discuss the management of the patient with other professionals (professionals i.e. , PA, REMANUFACTURING TECHNICIAN, lab, RT, psych nurse, social human services assistants, maintenance clerk, teacher, natural resource officer, caser shoe parts)? Give summary @ -No Was smoking cessation discussed for >3mins.? @ -No Was critical care preformed (if so, how long)? @ -No Were there social determinants of health that impacted care today? How? (Homelessness, low income, unemployed, alcoholism, drug addiction, transportation, low edu. Level, literacy, decrease access to med. care, assisted, rehab)? @ -No Was there de-escalation of care discussed even if they declined (Discuss DNR or withdrawal of care, Hospice)? DNR status @ -No What co-morbidities impacted this encounter? (DM, HTN, Smoking, COPD, CAD, Cancer, CVA, ARF, Chemo, Hep., AIDS, mental health diagnosis, sleep apnea, morbid obesity)? @ -None Was patient admitted / discharged? Hospital course, mention meds given and route, prescriptions, significant lab abnormalities, going to OR and other pertinent info. @ -Discharge. 82-year-old female presenting to the ER with a chief complaint of right hip pain and back pain. History and physical exam completed. Vitals stable. No red flag back pain symptoms indicative of cauda equina syndrome. Bilateral lower extremities neurovascular intact. X-rays obtained negative for acute process. Patient received PO Tylenol in ER for pain control. Upon reevaluation, patient resting comfortably n exam room eating chips. No signs of acute distress. Results discussed with patient, all questions answered. Advise follow-up with orthopedics. Lidocaine patches prescribed. Return parameters discussed. Patient discharged stable condition with follow-up to orthopedic/PCP. Patient verbally expressed understanding and agreement with care plan. Case discussed with ED attending, Dr. Lombardo. Undiagnosed new problem with uncertain prognosis? @ -No Drug Therapy requiring intensive monitoring for toxicity (Heparin, Nitro, Insulin, Cardizem)? @ -No Were any procedures done? @ -No Diagnosis/symptom? @ -Osteoarthritis/degenerative disc disease Acute, or Chronic, or Acute on Chronic? @ -Acute Uncomplicated (without systemic symptoms) or Complicated (systemic symptoms)? @ -Uncomplicated Side effects of treatment? @ -No Exacerbation, Progression, or Severe Exacerbation? @ -No Poses a threat to life or bodily function? How? (Chest pain, [place], [place], pneumonia, PE, COPD, DKA, ARF, appy, cholecystitis, CVA, Diverticulitis, Homicidal, Suicidal, threat to staff... and all critical care pts) @ -No - Radiology Data Radiology results: report reviewed, image reviewed Disposition Clinical Impression: Osteoarthritis Disposition: HOME SELF-CARE Condition: Stable Instructions (If sedation given, give patient instructions): Osteoarthritis (DC), Degenerative Disc Disease (ED) Additional Instructions: Recommend you follow-up with an orthopedic doctor. Continue to take ipan-vhe-dffakce Tylenol and Motrin for pain control. Return to the ER for any new or worsening symptoms. Prescriptions: Lidocaine 5% Patch [Lidoderm 5% Patch] 1 patch TOPICAL DAILY #10 patch Is patient prescribed a controlled substance at d/c from ED?: No Referrals: Luis Eduardo Villalba [Primary Care Provider] - 1-2 days Armand Navarro MD [Medical Doctor] - 1-2 days Time of Disposition: 13:14
[2023-08-15] MEDS: ACETAMINOPHEN TAB 325 MG TAB PO STA (12:28)
--- NOTE | 2023-08-15 12:29 | XR ---
EXAMINATION TYPE: XR lumbar spine 3V XR AP pelvis 2 views right hip DATE OF EXAM: 08/15/2023 Comparison: None Clinical History: 82-year-old female with pain Findings: Lumbar spine: Osteopenia. 5 lumbar type vertebral bodies. Hypertrophic facet arthropathy throughout especially lowe r lumbar spine. Degenerative trace grade 1 retrolisthesis L1-L2, L2-L3, L3-L4. Vertebral body heights are preserved. Atherosclerotic calcifications abdominal aorta. Accentuated lower lumbar lordosis. Pelvis and right hip: Mild degenerative spurring at the hips. Hip joint space is relatively maintained. Osteitis pubis. SI joints appear symmetric and intact. Osteopenia. No displaced fracture. Impression: 1. Lumbar spine: Hypertrophic facet arthropathy especially lower lumbar spine. Degenerative grade 1 r etrolisthesis L1-L4 levels. No vertebral compression collapse. 2. Pelvis and right hip: Mild bilateral hip OA. Osteitis pubis. Osteopenia limiting the assessment. N o displaced fracture seen.
[2023-08-15 13:37] VITALS: BP 131/56; PULSE 50; RESP 16
== END 2023-08-15 13:30 | disposition home or self-care (01) ==
LOC: EC 11:00
DX: M47.816 Spondylosis without myelopathy or radiculopathy, lumbar region (principal); M51.36 Other intervertebral disc degeneration, lumbar region; M85.89 Other specified disorders of bone density and structure, multiple sites; M43.16 Spondylolisthesis, lumbar region; M16.0 Bilateral primary osteoarthritis of hip
CPT/HCPCS: 72100; 73502; 99283

== ENCOUNTER 2023-10-24 08:16 | Emergency (ER) | payer MEDICARE ==
--- NOTE | 2023-10-24 08:25 | ED ---
Abdominal Pain HPI - General Chief Complaint: Abdominal Pain Stated Complaint: Abd pain Time Seen by Provider: 10/24/23 08:21 Source: patient, RN notes reviewed, old records reviewed Mode of arrival: wheelchair Limitations: no limitations - History of Present Illness Initial Comments: This is an 82-year-old female with nonspecific abdominal pain. Patient concern for diarrhea with persistent suprapubic abdominal pain here in the ER, no other significant plaints or travel history or sick contacts no recent illnesses patient states she is otherwise not feeling well due to this MD Complaint: abdominal pain -: days(s) Location: suprapubic Radiation: suprapubic Migration to: suprapubic Severity: moderate Severity scale (1-10): 5 Quality: cramping, aching Consistency: constant Improves With: nothing Worsens With: nothing Associated Symptoms: nausea, vomiting Treatments Prior to Arrival: other (0) - Related Data Home Medications Medication Instructions Recorded Confirmed Pravastatin Sodium [Pravachol] 40 mg PO HS 12/14/22 10/24/23 Triamterene/Hydrochlorothiazid 1 tab PO DAILY 12/14/22 10/24/23 [Triamterene-Hctz 37.5-25 mg Tb] amLODIPine [Norvasc] 10 mg PO DAILY 12/14/22 10/24/23 lisinopriL 40 mg PO DAILY 12/14/22 10/24/23 Escitalopram [Lexapro] 10 mg PO DAILY 10/24/23 10/24/23 Previous Rx's Medication Instructions Recorded Nitroglycerin Sl Tabs [Nitrostat] 0.4 mg SUBLINGUAL Q5M PRN #30 tab 06/29/22 Allergies Allergy/AdvReac Type Severity Reaction Status Date / Time No Known Allergies Allergy Verified 10/24/23 10:30 Review of Systems ROS Statement: Those systems with pertinent positive or pertinent negative responses have been documented in the HPI. ROS Other: All systems not noted in ROS Statement are negative. Past Medical History Past Medical History: Diabetes Mellitus, Hyperlipidemia, Hypertension Additional Past Medical History / Comment(s): PALPITATIONS-BBB. polymyalgia rheumatica History of Any Multi-Drug Resistant Organisms: None Reported Past Surgical History: Cardiac Ablation, Section Additional Past Surgical History / Comment(s): SINUS SURGERY, CARDIAC ABLATION FOR PVC x 3. COLONOSCOPY, removal of melanoma Past Anesthesia/Blood Transfusion Reactions: No Reported Reaction Past Psychological History: Anxiety Smoking Status: Never smoker Past Alcohol Use History: None Reported Past Drug Use History: None Reported - Past Family History Mother Family Medical History: No Reported History General Exam Limitations: no limitations General appearance: alert, in no apparent distress Head exam: Present: atraumatic, normocephalic, normal inspection Eye exam: Present: normal appearance, PERRL, EOMI. Absent: scleral icterus, conjunctival injection, periorbital swelling ENT exam: Present: normal exam, mucous membranes moist Neck exam: Present: normal inspection. Absent: tenderness, meningismus, lymphadenopathy Respiratory exam: Present: normal lung sounds bilaterally. Absent: respiratory distress, wheezes, rales, rhonchi, stridor Cardiovascular Exam: Present: regular rate, normal rhythm, normal heart sounds. Absent: systolic murmur, diastolic murmur, rubs, gallop, clicks GI/Abdominal exam: Present: soft, tenderness, normal bowel sounds. Absent: distended, guarding, rebound, rigid Extremities exam: Present: normal inspection, full ROM, normal capillary refill. Absent: tenderness, pedal edema, joint swelling, calf tenderness Back exam: Present: normal inspection Neurological exam: Present: alert, oriented X3, CN II-XII intact Psychiatric exam: Present: normal affect, normal mood Skin exam: Present: warm, dry, intact, normal color. Absent: rash Course Vital Signs 10/24/23 10/24/23 10/24/23 08:18 09:00 11:00 Temperature 97.9 F Pulse Rate 61 60 59 L Respiratory 18 16 16 Rate Blood Pressure 168/69 135/64 149/56 O2 Sat by Pulse 98 99 99 Oximetry 10/24/23 10/24/23 11:41 12:30 Temperature 98.0 F Pulse Rate 70 61 Respiratory 16 16 Rate Blood Pressure 134/53 121/56 O2 Sat by Pulse 99 99 Oximetry - Reevaluation(s) Reevaluation #1: 10/24/23 08:46 Records reviewed Reevaluation #2: 10/24/23 08:46 Is improved here in the ER Reevaluation #3: 10/24/23 11:39 Patient informed of results and questions answered Reevaluation #4: Was pt. sent in by a medical professional or institution (, PA, PATROL JUDGE, urgent care, hospital, or custodial...) When possible be specific @ -no Did you speak to anyone other than the patient for history (EMS, parent, family, police, friend...)? What history was obtained from this source @ -no Did you review nursing and triage notes (agree or disagree)? Why? @ -agree Are old charts reviewed (outside hosp., previous admission, EMS record, old EKG, old radiological studies, urgent care reports/EKG's, custodial records)? Report findings @ -yes Differential Diagnosis (chest pain, altered mental status, abdominal pain women, abdominal pain men, vaginal bleeding, weakness, fever, dyspnea, syncope, headache, dizziness, GI bleed, back pain, seizure, CVA, palpatations, mental health, musculoskeletal)? @ -prior EKG interpreted by me (3pts min.). @ -yes X-rays interpreted by me (1pt min.). @ -yes negative for acute disease CT interpreted by me (1pt min.). @ -yes negative for acute disease U/S interpreted by me (1pt. min.). @ -yes negative for acute disease What testing was considered but not performed or refused? (CT, X-rays, U/S, labs)? Why? @ -none What meds were considered but not given or refused? Why? @ -none Did you discuss the management of the patient with other professionals (professionals i.e. , PA, PATROL JUDGE, lab, RT, psych nurse, executive secretary social welfare, neon glass blower, teacher, air control/anti air warfare officer, field nurse case manager)? Give summary @ -no Was smoking cessation discussed for >3mins.? @ -no Was critical care preformed (if so, how long)? @ -no Were there social determinants of health that impacted care today? How? (Homelessness, low income, unemployed, alcoholism, drug addiction, transportation, low edu. Level, literacy, decrease access to med. care, skilled nursing, rehab)? @ -none Was there de-escalation of care discussed even if they declined (Discuss DNR or withdrawal of care, Hospice)? DNR status @ -no What co-morbidities impacted this encounter? (DM, HTN, Smoking, COPD, CAD, Cancer, CVA, ARF, Chemo, Hep., AIDS, mental health diagnosis, sleep apnea, morbid obesity)? @ -none Was patient admitted / discharged? Hospital course, mention meds given and route, prescriptions, significant lab abnormalities, going to OR and other pertinent info. @ - 82 Male with nonspecific abdominal pain. No acute cause found here in the ER patient can be discharged home Discharge Undiagnosed new problem with uncertain prognosis? @ -no Drug Therapy requiring intensive monitoring for toxicity (Heparin, Nitro, Insulin, Cardizem)? @ -no Were any procedures done? @ -no Diagnosis/symptom? @ -Abdominal pain Acute, or Chronic, or Acute on Chronic? @ -Acute Uncomplicated (without systemic symptoms) or Complicated (systemic symptoms)? @ -Complicated Side effects of treatment? @ -no Exacerbation, Progression, or Severe Exacerbation? @ -exacerbation Poses a threat to life or bodily function? How? (Chest pain, [place], [place], pneumonia, PE, COPD, DKA, ARF, appy, cholecystitis, CVA, Diverticulitis, Homicidal, Suicidal, threat to staff... and all critical care pts) @ -yes extremes of age Reevaluation #5: Differential Abdominal Pain Women: Appendicitis, Cholecystitis, diverticulosis, ischemic bowel, pancreatitis, hepatitis, UTI, gastroenteritis, AAA, incarcerated hernia, bowel obstruction, constipation, inflammatory bowel, hepatitis, peptic ulcer disease, splenic infarction, perforated viscus, vulvitis, ovarian torsion, PID, kidney stone, placenta abruption, this is not meant to be an all-inclusive list Medical Decision Making - Medical Decision Making 82 Male with nonspecific abdominal pain. No acute cause found here in the ER patient can be discharged home - Lab Data Result diagrams: 10/24/23 09:07 10/24/23 09:07 Lab Results 10/24/23 10/24/23 10/24/23 Range/Units 09:07 09:07 09:07 WBC 7.1 (3.8-10.6) k/uL RBC 3.79 L (3.80-5.40) m/uL Hgb 12.0 (11.4-16.0) gm/dL Hct 36.2 (34.0-46.0) % MCV 95.4 (80.0-100.0) fL MCH 31.7 (25.0-35.0) pg MCHC 33.2 (31.0-37.0) g/dL RDW 12.2 (11.5-15.5) % Plt Count 303 (150-450) k/uL MPV 7.9 Neutrophils % 70 % Lymphocytes % 20 % Monocytes % 6 % Eosinophils % 1 % Basophils % 1 % Neutrophils # 5.0 (1.3-7.7) k/uL Lymphocytes # 1.5 (1.0-4.8) k/uL Monocytes # 0.4 (0-1.0) k/uL Eosinophils # 0.1 (0-0.7) k/uL Basophils # 0.0 (0-0.2) k/uL Sodium 137 (137-145) mmol/L Potassium 3.3 L (3.5-5.1) mmol/L Chloride 100 (98-107) mmol/L Carbon Dioxide 32 H (22-30) mmol/L Anion Gap 5 mmol/L BUN 20 H (7-17) mg/dL Creatinine 0.91 (0.52-1.04) mg/dL Est GFR (CKD-EPI)AfAm 69 (>60 ml/min/1.73 sqM) Est GFR (CKD-EPI)NonAf 60 (>60 ml/min/1.73 sqM) Glucose 126 H (74-99) mg/dL POC Glucose (mg/dL) (70-110) mg/dL POC Glu Biological Science Technician ID Plasma Lactic Acid Raffaele (0.7-2.0) mmol/L Calcium 10.0 (8.4-10.2) mg/dL Total Bilirubin 0.7 (0.2-1.3) mg/dL AST 22 (14-36) U/L ALT 20 (4-34) U/L Alkaline Phosphatase 42 (38-126) U/L Total Protein 6.8 (6.3-8.2) g/dL Albumin 4.0 (3.5-5.0) g/dL Amylase 49 (30-110) U/L Lipase 100 (23-300) U/L Urine Color Colorless Urine Appearance Clear (Clear) Urine pH 8.5 H (5.0-8.0) Ur Specific [place] 1.014 (1.001-1.035) Urine Protein Trace H (Negative) Urine Glucose (UA) Negative (Negative) Urine Ketones Negative (Negative) Urine Blood Negative (Negative) Urine Nitrite Negative (Negative) Urine Bilirubin Negative (Negative) Urine Urobilinogen <2.0 (<2.0) mg/dL Ur Leukocyte Esterase Negative (Negative) 10/24/23 10/24/23 Range/Units 09:07 09:26 WBC (3.8-10.6) k/uL RBC (3.80-5.40) m/uL Hgb (11.4-16.0) gm/dL Hct (34.0-46.0) % MCV (80.0-100.0) fL MCH (25.0-35.0) pg MCHC (31.0-37.0) g/dL RDW (11.5-15.5) % Plt Count (150-450) k/uL MPV Neutrophils % % Lymphocytes % % Monocytes % % Eosinophils % % Basophils % % Neutrophils # (1.3-7.7) k/uL Lymphocytes # (1.0-4.8) k/uL Monocytes # (0-1.0) k/uL Eosinophils # (0-0.7) k/uL Basophils # (0-0.2) k/uL Sodium (137-145) mmol/L Potassium (3.5-5.1) mmol/L Chloride (98-107) mmol/L Carbon Dioxide (22-30) mmol/L Anion Gap mmol/L BUN (7-17) mg/dL Creatinine (0.52-1.04) mg/dL Est GFR (CKD-EPI)AfAm (>60 ml/min/1.73 sqM) Est GFR (CKD-EPI)NonAf (>60 ml/min/1.73 sqM) Glucose (74-99) mg/dL POC Glucose (mg/dL) 117 H (70-110) mg/dL POC Glu Biological Science Technician ID Johnna, Angel Plasma Lactic Acid Raffaele 1.3 (0.7-2.0) mmol/L Calcium (8.4-10.2) mg/dL Total Bilirubin (0.2-1.3) mg/dL AST (14-36) U/L ALT (4-34) U/L Alkaline Phosphatase (38-126) U/L Total Protein (6.3-8.2) g/dL Albumin (3.5-5.0) g/dL Amylase (30-110) U/L Lipase (23-300) U/L Urine Color Urine Appearance (Clear) Urine pH (5.0-8.0) Ur Specific [place] (1.001-1.035) Urine Protein (Negative) Urine Glucose (UA) (Negative) Urine Ketones (Negative) Urine Blood (Negative) Urine Nitrite (Negative) Urine Bilirubin (Negative) Urine Urobilinogen (<2.0) mg/dL Ur Leukocyte Esterase (Negative) - Radiology Data Radiology results: report reviewed (CT of the abdomen pelvis is negative for acute disease, x-ray KUB and ultrasound gallbladder negative for acute disease), image reviewed Disposition Clinical Impression: Abdominal pain Disposition: HOME SELF-CARE Condition: Good Instructions (If sedation given, give patient instructions): Abdominal Pain (ED) Is patient prescribed a controlled substance at d/c from ED?: No Referrals: Luis Eduardo Villalba [Primary Care Provider] - 1-2 days Time of Disposition: 11:40
--- NOTE | 2023-10-24 09:09 | XR ---
EXAMINATION TYPE: XR KUB DATE OF EXAM: 10/24/2023 COMPARISON: 05/17/2017 INDICATION: pain TECHNIQUE: Single view abdomen upright view FINDINGS: On specific bowel gas is present. Mild fecal debris is through the colon. Psoas margins are normal. No organomegaly is present. IMPRESSION: 1. Mild fecal retention
[2023-10-24] MEDS: SODIUM CHLORIDE 0.9% 1,000 ML IV STA (09:21)
[2023-10-24 09:22] LABS: Appearance,Urine Clear (Clear); Bilirubin,Urine Negative (Negative); Blood,Urine Negative (Negative); Color,Urine Colorless; Glucose,Urine (UA) Negative (Negative); Ketones,Urine Negative (Negative); Leukocyte Esterase,Urine Negative (Negative); Nitrite,Urine Negative (Negative); PH, Urine 8.5 (5.0-8.0); Protein,Urine Trace (Negative); Specific Gravity,Urine 1.014 (1.001-1.035); Urobilinogen,Urine <2.0 mg/dL (<2.0)
[2023-10-24] MEDS: PANTOPRAZOLE 40 MG/10 ML VIAL IVP STA (09:22)
[2023-10-24 09:28] LABS: Glucose,Whole Blood 117 mg/dL (70-110)
[2023-10-24] MEDS: ONDANSETRON 4 MG/2 ML VIAL IVP STA (09:28)
[2023-10-24 09:33] LABS: ALT 20 U/L (4-34); AST 22 U/L (14-36); African American GFR (CKD) 69 (>60 ml/min/1.73 sqM); Alkaline Phosphatase 42 U/L (38-126); Amylase 49 U/L (30-110); Anion Gap 5 mmol/L; Blood Urea Nitrogen 20 mg/dL (7-17); Carbon Dioxide 32 mmol/L (22-30); Chloride 100 mmol/L (98-107); Glucose 126 mg/dL (74-99); Lipase 100 U/L (23-300); Non-African American GFR(CKD) 60 (>60 ml/min/1.73 sqM); Potassium 3.3 mmol/L (3.5-5.1); Sodium 137 mmol/L (137-145); Total Bilirubin 0.7 mg/dL (0.2-1.3); Total Protein 6.8 g/dL (6.3-8.2)
[2023-10-24 09:38] LABS: Basophils % (A) 1 %; Eosinophils # (A) 0.1 k/uL (0-0.7); Eosinophils % (A) 1 %; HCT 36.2 % (34.0-46.0); Lymphocytes # (A) 1.5 k/uL (1.0-4.8); Lymphocytes % (A) 20 %; MCH 31.7 pg (25.0-35.0); MCHC 33.2 g/dL (31.0-37.0); MCV 95.4 fL (80.0-100.0); Mean Platelet Volume 7.9; Monocytes # (A) 0.4 k/uL (0-1.0); Monocytes % (A) 6 %; Neutrophils % (A) 70 %; Platelet Count 303 k/uL (150-450); RBC 3.79 m/uL (3.80-5.40); RDW 12.2 % (11.5-15.5); WBC 7.1 k/uL (3.8-10.6)
--- NOTE | 2023-10-24 10:28 | CT ---
EXAMINATION TYPE: CT abdomen pelvis w con DATE OF EXAM: 10/24/2023 COMPARISON: 05/17/2017 INDICATION: abd pain DLP: 569.9 mGycm, Automated exposure control for dose reduction was used. CONTRAST: 100 mL of Isovue 300. Study performed without Oral Contrast TECHNIQUE: Axial images were obtained from above the diaphragm to the pubic rami in the axial plane a t 5 mm thick sections. Reconstructed images are reviewed on the computer in the coronal plane. FINDINGS: Limited CT sections are obtained the lung bases. The lung bases are clear. CT ABDOMEN: Liver: Normal Spleen: Normal Pancreas: Normal Adrenal glands: The adrenal glands are normal. Gallbladder: Normal Kidneys: No masses are evident. No hydronephrosis is present. No cysts are present. Delayed images were obtained through the kidneys, which remain unremarkable. Aorta: Vascular calcification is within the aorta. Inferior vena cava: Normal. CT PELVIS: Scattered diverticuli are through the sigmoid colon. No suspicious acute diverticulitis is evident. T his study is normal contrast vomiting following evaluation. There is some increased density scattered retained fecal debris is within the colon. Appendix: Normal as visualized. Urinary bladder: Normal. Genitourinary structures: Uterus is normal. Adnexa are unremarkable. Osseous structures: No suspicious lytic or sclerotic lesions. Facet changes are present IMPRESSION: 1. Diverticulosis without acute diverticulitis.
--- NOTE | 2023-10-24 11:24 | US ---
EXAMINATION TYPE: US pelvic complete DATE OF EXAM: 10/24/2023 COMPARISON: CT 10/24/23 CLINICAL INDICATION: Female, 82 years old with history of pelvic pain; Lower abdominal pain TECHNIQUE: Transabdominal (TA). Transabdominal sonographic images of the pelvis were acquired. Date of LMP: unknown EXAM MEASUREMENTS: Uterus: 4.6 x 2.6 x 3.3 cm Endometrial Stripe: 0.31 cm Right Ovary: 1.8 x 1.3 x 1.5 cm 1. Uterus: Retroflexed Cyst-like area within the cervix 0.6 cm may be a nabothian cyst 2. Endometrium: Appears wnl 3. Right Ovary: wnl 4. Left Ovary: Obscured by overlying bowel gas 5. Bilateral Adnexa: wnl 6. Posterior cul-de-sac: wnl IMPRESSION: 1. No suspicious acute ultrasound pelvis abnormalities.
[2023-10-24 11:42] VITALS: RESP 16
[2023-10-24 12:38] VITALS: BP 121/56; PULSE 61; TEMP 98
== END 2023-10-24 12:32 | disposition home or self-care (01) ==
LOC: EC 08:16
DX: R10.30 Lower abdominal pain, unspecified (principal)
CPT/HCPCS: 36415; 80053; 82150; 83605; 83690; 85025; 81003; 74018; 76856; 74177; 99284; 96374; 96361; Q9967; J2470

== ENCOUNTER 2024-02-04 18:08 | Emergency (ER) | payer MEDICARE ==
[2024-02-04 18:18] VITALS: TEMP 98.2
[2024-02-04] MEDS: KETOROLAC 15 MG/ML 1 ML VIAL IM STA (18:34)
--- NOTE | 2024-02-04 18:38 | ED ---
Extremity Problem HPI - General Chief complaint: Extremity Problem,Nontraumatic Stated complaint: L leg pain Time Seen by Provider: 02/04/24 18:21 Source: patient Mode of arrival: ambulatory Limitations: no limitations - History of Present Illness Initial comments: This is an 83-year-old female with history of diabetes presenting with sudden onset left hip pain x 4 days. Patient states pain started suddenly with no known trauma or cause of current symptoms. Patient rates pain at 10 out of 10 that worsens with weightbearing, standing upright and use of hip. Patient denies lower extremity edema, color change radiating pain, paresthesia. Patient endorses use of ibuprofen and lidocaine patches with no relief. Patient denies fever, chills, lower back pain, dyspnea, chest pain, abdominal pain, constipation, urinary symptoms. MD Complaint: joint pain Onset/Timin -: days(s) Location: left, lower extremity History of Same: No -: Yes arthralgia Radiation: none Severity scale (1-10): 10 Consistency: constant Improves with: immobilization, rest Worsens with: weight bearing, walking - Related Data Home Medications Medication Instructions Recorded Confirmed Pravastatin Sodium [Pravachol] 40 mg PO HS 12/14/22 10/24/23 Triamterene/Hydrochlorothiazid 1 tab PO DAILY 12/14/22 10/24/23 [Triamterene-Hctz 37.5-25 mg Tb] amLODIPine [Norvasc] 10 mg PO DAILY 12/14/22 10/24/23 lisinopriL 40 mg PO DAILY 12/14/22 10/24/23 Escitalopram [Lexapro] 10 mg PO DAILY 10/24/23 10/24/23 Previous Rx's Medication Instructions Recorded Nitroglycerin Sl Tabs [Nitrostat] 0.4 mg SUBLINGUAL Q5M PRN #30 tab 06/29/22 methylPREDNISolone Dose Pack 4 mg PO DIRECTED #21 tab 02/04/24 [Medrol Dose Pack] Allergies Allergy/AdvReac Type Severity Reaction Status Date / Time No Known Allergies Allergy Verified 02/04/24 18:18 Review of Systems ROS Statement: Those systems with pertinent positive or pertinent negative responses have been documented in the HPI. ROS Other: All systems not noted in ROS Statement are negative. Past Medical History Past Medical History: Diabetes Mellitus, Hyperlipidemia, Hypertension Additional Past Medical History / Comment(s): PALPITATIONS-BBB. polymyalgia rheumatica History of Any Multi-Drug Resistant Organisms: None Reported Past Surgical History: Cardiac Ablation, Section Additional Past Surgical History / Comment(s): SINUS SURGERY, CARDIAC ABLATION FOR PVC x 3. COLONOSCOPY, removal of melanoma Past Anesthesia/Blood Transfusion Reactions: No Reported Reaction Past Psychological History: Anxiety Smoking Status: Never smoker Past Alcohol Use History: None Reported Past Drug Use History: None Reported - Past Family History Mother Family Medical History: No Reported History General Exam Limitations: no limitations General appearance: alert, in no apparent distress Head exam: Present: atraumatic, normocephalic, normal inspection Eye exam: Present: normal appearance, PERRL, EOMI. Absent: scleral icterus, conjunctival injection, periorbital swelling ENT exam: Present: normal exam, mucous membranes moist Neck exam: Present: normal inspection. Absent: tenderness, meningismus, lymphadenopathy Respiratory exam: Present: normal lung sounds bilaterally. Absent: respiratory distress, wheezes, rales, rhonchi, stridor Cardiovascular Exam: Present: regular rate, normal rhythm, normal heart sounds. Absent: systolic murmur, diastolic murmur, rubs, gallop, clicks GI/Abdominal exam: Present: soft, normal bowel sounds. Absent: distended, tenderness, guarding, rebound, rigid Extremities exam: Present: normal inspection, full ROM, tenderness (Positive left lateral hip and proximal femur tenderness without obvious crepitus or deformity.), normal capillary refill, other (Negative left lower extremity edema, erythema, Homans' sign. Left dorsalis pedis and posterior tibial pulse +2. Neurovascular intact. Hip flexion and extension strength 5 out of 5). Absent: pedal edema, joint swelling, calf tenderness Back exam: Present: normal inspection, paraspinal tenderness (Positive left superior gluteus point tenderness) Neurological exam: Present: alert, oriented X3, CN II-XII intact Psychiatric exam: Present: normal affect, normal mood Skin exam: Present: warm, dry, intact, normal color. Absent: rash Course Vital Signs 02/04/24 18:16 Temperature 98.2 F Pulse Rate 56 L Respiratory 20 Rate Blood Pressure 125/55 O2 Sat by Pulse 100 Oximetry Medical Decision Making - Medical Decision Making Was pt. sent in by a medical professional or institution (, PA, SURVEY STATISTICIAN, urgent care, hospital, or halfway...) When possible be specific @ -[No] Did you speak to anyone other than the patient for history (EMS, parent, family, police, friend...)? What history was obtained from this source @ -[No] Did you review nursing and triage notes (agree or disagree)? Why? @ -[I reviewed and agree with nursing and triage notes] Were old charts reviewed (outside hosp., previous admission, EMS record, old EKG, old radiological studies, urgent care reports/EKG's, halfway records)? Report findings @ -[No old charts were reviewed] Differential Diagnosis (chest pain, altered mental status, abdominal pain women, abdominal pain men, vaginal bleeding, weakness, fever, dyspnea, syncope, headache, dizziness, GI bleed, back pain, seizure, CVA, palpatations, mental health, musculoskeletal)? @ -Left hip fracture, femoral neck fracture, hip dislocation, sciatica, lower back pain, stress fracture, osteoarthritis, DVT, iliotibial band syndrome, avascular necrosis EKG interpreted by me (3pts min.). @ -Not done X-rays interpreted by me (1pt min.). @ -Left femur and hip x-ray showed no obvious fracture, dislocation or significant osteoarthritis CT interpreted by me (1pt min.). @ -[None done] U/S interpreted by me (1pt. min.). @ -[None done] What testing was considered but not performed or refused? (CT, X-rays, U/S, labs)? Why? @ -[None] What meds were considered but not given or refused? Why? @ -Patient declined Norflex and additional Solu-Medrol IM for sciatica pain. Also declined cyclobenzaprine for sciatica Did you discuss the management of the patient with other professionals (professionals i.e. , PA, SURVEY STATISTICIAN, lab, RT, psych nurse, rn social services, development assistant, teacher, chief technical officer, immigration case manager)? Give summary @ -[No] Was smoking cessation discussed for >3mins.? @ -[No] Was critical care preformed (if so, how long)? @ -[No] Were there social determinants of health that impacted care today? How? (Homelessness, low income, unemployed, alcoholism, drug addiction, transportation, low edu. Level, literacy, decrease access to med. care, correction, rehab)? @ -[No] Was there de-escalation of care discussed even if they declined (Discuss DNR or withdrawal of care, Hospice)? DNR status @ -[No] What co-morbidities impacted this encounter? (DM, HTN, Smoking, COPD, CAD, Cancer, CVA, ARF, Chemo, Hep., AIDS, mental health diagnosis, sleep apnea, morbid obesity)? @ -DM Was patient admitted / discharged? Hospital course, mention meds given and route, prescriptions, significant lab abnormalities, going to OR and other pertinent info. @ -Discharge. Left hip and femur x-ray were largely unremarkable. Patient states IM Toradol and Solu-Medrol provided with little relief. Medrol Dosepak sent to pharmacy. Advised follow-up with orthopedics. Undiagnosed new problem with uncertain prognosis? @ -[No] Drug Therapy requiring intensive monitoring for toxicity (Heparin, Nitro, Insulin, Cardizem)? @ -[No] Were any procedures done? @ -[No] Diagnosis/symptom? @ -Sciatica with radiculopathy Acute, or Chronic, or Acute on Chronic? @ -Acute Uncomplicated (without systemic symptoms) or Complicated (systemic symptoms)? @ -Uncomplicated Side effects of treatment? @ -[No] Exacerbation, Progression, or Severe Exacerbation? @ -[No] Poses a threat to life or bodily function? How? (Chest pain, [place], [place], pneumonia, PE, COPD, DKA, ARF, appy, cholecystitis, CVA, Diverticulitis, Homicidal, Suicidal, threat to staff... and all critical care pts) @ -[No] Disposition Clinical Impression: Sciatica Disposition: HOME SELF-CARE Condition: Good Instructions (If sedation given, give patient instructions): Sciatica (ED) Prescriptions: methylPREDNISolone Dose Pack [Medrol Dose Pack] 4 mg PO DIRECTED #21 tab Is patient prescribed a controlled substance at d/c from ED?: No Referrals: Luis Eduardo Villalba [Primary Care Provider] - 1-2 days Time of Disposition: 19:59
--- NOTE | 2024-02-04 18:56 | XR ---
EXAMINATION TYPE: XR femur LT DATE OF EXAM: 02/04/2024 COMPARISON: NONE HISTORY: 83-year-old female with left hip and femur pain for 4 days TECHNIQUE: 2 views FINDINGS: There is mild degenerative change of the left hip. No acute fracture seen. No periostitis o r osteolysis. Knee articulation appears grossly intact. Osteitis pubis. Pelvic phlebolith. IMPRESSION: Left femur without acute osseous abnormality seen. Osteitis pubis. [facility], , 02/04/2024 6:54 PM
[2024-02-04] MEDS: methylPREDNISolone SOD SUCCI 125 MG/2 ML VIAL IM ONE (19:01)
[2024-02-04 20:29] VITALS: BP 124/70; PULSE 61; RESP 18
== END 2024-02-04 20:43 | disposition home or self-care (01) ==
LOC: EC 18:08
CPT/HCPCS: 96372; 99283

== ENCOUNTER 2024-03-11 02:30 | Emergency (ER) | payer MEDICARE ==
[2024-03-11 02:39] VITALS: TEMP 98
--- NOTE | 2024-03-11 03:12 | ED ---
General Adult HPI - General Chief complaint: Back Pain/Injury Stated complaint: L Flank Pain Time Seen by Provider: 03/11/24 02:31 Source: patient Mode of arrival: EMS - History of Present Illness Initial comments: Patient is an 83-year-old female with past medical history of hypertension, hyperlipidemia presenting today for left flank pain. Pain started while patient was sitting at home this afternoon reading a book. She has not tried any medications at home for the pain. It radiates around the left side of her abdomen. She wonders if it is a kidney stone, she has no history of these. Denies nausea, vomiting, black or bloody stools, constipation, hematuria or dysuria. Denies chest pain or shortness of breath. Does states that she is intermittently taking tramadol for left hip/gluteal pain that has been ongoing for 5 weeks. Denies trauma or falls. Has been seen for hip pain previously and is currently seeing an orthopedist and following with spine doctor for this. Same as it usually is today. Patient mentions this because she states her left flank pain is different from the left hip pain she has been having. Denies fevers or chills. - Related Data Home Medications Medication Instructions Recorded Confirmed Pravastatin Sodium [Pravachol] 40 mg PO HS 12/14/22 10/24/23 Triamterene/Hydrochlorothiazid 1 tab PO DAILY 12/14/22 10/24/23 [Triamterene-Hctz 37.5-25 mg Tb] amLODIPine [Norvasc] 10 mg PO DAILY 12/14/22 10/24/23 lisinopriL 40 mg PO DAILY 12/14/22 10/24/23 Escitalopram [Lexapro] 10 mg PO DAILY 10/24/23 10/24/23 Previous Rx's Medication Instructions Recorded Nitroglycerin Sl Tabs [Nitrostat] 0.4 mg SUBLINGUAL Q5M PRN #30 tab 06/29/22 methylPREDNISolone Dose Pack 4 mg PO DIRECTED #21 tab 02/04/24 [Medrol Dose Pack] Allergies Allergy/AdvReac Type Severity Reaction Status Date / Time No Known Allergies Allergy Verified 03/11/24 02:39 Review of Systems ROS Statement: Those systems with pertinent positive or pertinent negative responses have been documented in the HPI. ROS Other: All systems not noted in ROS Statement are negative. Constitutional: Denies: fever, chills Respiratory: Denies: dyspnea Cardiovascular: Denies: chest pain, edema Gastrointestinal: Reports: abdominal pain, diarrhea (once a week, not new). Denies: nausea, vomiting, constipation, melena, hematochezia Genitourinary: Denies: dysuria, hematuria Musculoskeletal: Reports: back pain (left flank pain), arthralgia Past Medical History Past Medical History: Diabetes Mellitus, Hyperlipidemia, Hypertension Additional Past Medical History / Comment(s): PALPITATIONS-BBB. polymyalgia rheumatica History of Any Multi-Drug Resistant Organisms: None Reported Past Surgical History: Cardiac Ablation, Section Additional Past Surgical History / Comment(s): SINUS SURGERY, CARDIAC ABLATION FOR PVC x 3. COLONOSCOPY, removal of melanoma Past Anesthesia/Blood Transfusion Reactions: No Reported Reaction Past Psychological History: Anxiety Smoking Status: Never smoker Past Alcohol Use History: None Reported Past Drug Use History: None Reported - Past Family History Mother Family Medical History: No Reported History General Exam - General Exam Comments Initial Comments: PE: CONSTITUTIONAL: No apparent distress, well appearing SKIN: Warm, dry, no jaundice, hives or petechiae, no blistering lesions, no rash or other skin changes in area of pain EYES: Pupils are equally round, extraocular movements intact without nystagmus, clear conjunctiva, non-icteric sclera HENT: Normocephalic, atraumatic, moist mucus membranes, oropharynx clear without exudates NECK: , Full range of motion, normal appearance PULMONARY: Clear to auscultation without wheezes, rhonchi, or rales, normal excursion, no accessory muscle use and no stridor CARDIOVASCULAR: Regular rate, rhythm, normal S1 and S2. No appreciated murmurs, rubs or gallops. Strong radial and DP pulses with intact distal perfusion. No lower extremity edema GASTROINTESTINAL: Soft, active bowel sounds throughout, minimal tenderness along left side of abdomen, positive left CVA tenderness non-distended, no palpable masses, no rebound or guarding. No hepatosplenomegaly MUSCULOSKELETAL: Extremities have no gross deformity, no edema, redness, or swelling. No calf swelling. No midline spinal tenderness palpation, no paraspinal muscle tenderness to palpation, reproducible TTP left SI joint NEUROLOGIC:_a/o x 3, GCS 15, normal mentation and speech. Moves all extremities x 4 without motor or sensory deficit PSYCHIATRIC:_normal mood and affect, thought process is clear and linear Course Vital Signs 03/11/24 03/11/24 03/11/24 02:31 04:00 05:05 Temperature 98.0 F Pulse Rate 50 L 48 L 51 L Respiratory 16 18 18 Rate Blood Pressure 145/72 138/53 132/61 O2 Sat by Pulse 99 97 95 Oximetry 03/11/24 06:01 Temperature 98.0 F Pulse Rate 45 L Respiratory 18 Rate Blood Pressure 130/61 O2 Sat by Pulse 95 Oximetry Medical Decision Making - Medical Decision Making Was pt. sent in by a medical professional or institution (, PA, [employer], urgent care, hospital, or longterm...) When possible be specific @ -No Did you speak to anyone other than the patient for history (EMS, parent, family, police, friend...)? What history was obtained from this source @ -No Did you review nursing and triage notes (agree or disagree)? Why? @ -I reviewed and agree with nursing and triage notes Were old charts reviewed (outside hosp., previous admission, EMS record, old EKG, old radiological studies, urgent care reports/EKG's, longterm records)? Report findings @Medical records reviewed, patient was here recently on 02/04/2024 for left hip pain x 4 days, femur x-ray at that point was no acute process Differential Diagnosis (chest pain, altered mental status, abdominal pain women, abdominal pain men, vaginal bleeding, weakness, fever, dyspnea, syncope, headache, dizziness, GI bleed, back pain, seizure, CVA, palpatations, mental hea lth, musculoskeletal)? @ -Differential Abdominal Pain Women: Appendicitis, Cholecystitis, diverticulosis, ischemic bowel, pancreatitis, hepatitis, UTI, gastroenteritis, AAA, incarcerated hernia, bowel obstruction, constipation, inflammatory bowel, hepatitis, peptic ulcer disease, splenic infarction, perforated viscus, vulvitis, ovarian torsion, PID, kidney stone, placenta abruption, this is not meant to be an all-inclusive list EKG interpreted by me (3pts min.). @ -As above X-rays interpreted by me (1pt min.). @ -None done CT interpreted by me (1pt min.). @ -I see no evidence of renal artery aneurysm, no evidence of abscess, no hydronephrosis or ureterolithiasis, no acute process noted U/S interpreted by me (1pt. min.). @ -None done What testing was considered but not performed or refused? (CT, X-rays, U/S, labs)? Why? @ -None What meds were considered but not given or refused? Why? @ -None Did you discuss the management of the patient with other professionals (professionals i.e. Dr., PA, [employer], lab, RT, psych nurse, social problems specialist, label printing machinist, teacher, chief technical officer, manager rn case)? Give summary @ -No Was smoking cessation discussed for >3mins.? @ -No Was critical care preformed (if so, how long)? @ -No Were there social determinants of health that impacted care today? How? (Homelessness, low income, unemployed, alcoholism, drug addiction, transportation, low edu. Level, literacy, decrease access to med. care, intermediate, rehab)? @ -No Was there de-escalation of care discussed even if they declined (Discuss DNR or withdrawal of care, Hospice)? @ -No What co-morbidities impacted this encounter? (DM, HTN, Smoking, COPD, CAD, Cancer, CVA, ARF, Chemo, Hep., AIDS, mental health diagnosis, sleep apnea, morbid obesity)? @Hypertension, hyperlipidemia Was patient admitted / discharged? Hospital course, mention meds given and route, prescriptions, significant lab abnormalities, going to OR and other pertinent info. @Discharged This a pleasant 83 y/o female presenting for left flank pain radiating around to left side of abdomen x 1 evening, also notes 5 week left hip pain. Exam is rel atively benign with minimal tenderness along the left side of the abdomen no guarding, no distention, positive active bowel sounds, positive left CVA tenderness with no midline spinal tenderness to palpation. Extremities are pink and well-perfused. Additionally, no midline spinal TTP, reproducible point tenderness to palpation of left SI joint. Discussed with patient administering dose of Toradol, IV fluids obtaining labs and urinalysis. If urinalysis shows blood or other signs of ureterolithiasis will obtain CT abdomen pelvis without contrast for stone, if urinalysis reassuring will obtain CT and pelvis with contrast. Urine with only 2 red blood cells, no signs of infection. Will obtain CTA abdomen pelvis to assess renal artery as well as for hydronephrosis, as patient has no prior history if kidney stones.. I reviewed patient's labs, white blood cell count shows mild leukocytosis 13.6, hemoglobin of 10.9 slightly decreased from 10/24/2023 when was 12, patient denies any black or bloody stools 135, potassium 3.2, ordered replacement, carbon dioxide 33 BUN 33, creatinine 0.91, GFR 59 urinalysis with cloudy appearance but negative nitrates negative leukocyte esterase and [address] imaging negative for acute process. On my reassessment patient states flank pain is resolved and her pain in her left hip has improved, she is able to ambulate with a walker without difficulty. Discussed with patient plan for 3 days scheduled NSAIDs as needed for left hip pain, but to take these with food and only as needed to follow-up with her primary care provider regarding continuation of these and to monitor her kidney function. Patient agreeable plan of care. In my medical judgment there is currently no evidence of an immediate life- threatening or surgical condition. Discharge is therefore indicated at this time. Discharge treatment instructions, follow up instructions, and appropriate emergency department return precautions were discussed with the patient and/or medical decision maker. Patient and/or medical decision maker expressed understanding of and agreed with the treatment plan, follow up instructions, and emergency department return precaution. All patient's and/or medical decision maker's questions were answered. The patient was advised that a small risk still exists that a serious condition could develop and was therefore instructed to return to the ED for any changes in symptoms, persistent symptoms, inability to obtain proper follow-up or for any further concerns. Patient received verbal and written instructions for this condition. Undiagnosed new problem with uncertain prognosis? @ -No Drug Therapy requiring intensive monitoring for toxicity (Heparin, Nitro, Insulin, Cardizem)? @ -No Were any procedures done? @ -No Diagnosis/symptom? @ -Default Acute, or Chronic, or Acute on Chronic? @ Left flank pain, left hip pain Uncomplicated (without systemic symptoms) or Complicated (systemic symptoms)? @ uncomplicated Side effects of treatment? @ -No Exacerbation, Progression, or Severe Exacerbation? @ -No Poses a threat to life or bodily function? How? (Chest pain, [place], [place], pneumonia, PE, COPD, DKA, ARF, appy, cholecystitis, CVA, Diverticulitis, Homicidal, Suicidal, threat to staff... and all critical care pts) @ -No - Lab Data Result diagrams: 03/11/24 03:32 03/11/24 03:32 Lab Results 03/11/24 03/11/24 03/11/24 Range/Units 03:02 03:32 03:32 WBC 13.6 H (3.8-10.6) k/uL RBC 3.40 L (3.80-5.40) m/uL Hgb 10.9 L (11.4-16.0) gm/dL Hct 32.2 L (34.0-46.0) % MCV 94.7 (80.0-100.0) fL MCH 32.1 (25.0-35.0) pg MCHC 33.9 (31.0-37.0) g/dL RDW 12.2 (11.5-15.5) % Plt Count 293 (150-450) k/uL MPV 7.5 Neutrophils % 74 % Lymphocytes % 16 % Monocytes % 8 % Eosinophils % 1 % Basophils % 0 % Neutrophils # 10.1 H (1.3-7.7) k/uL Lymphocytes # 2.2 (1.0-4.8) k/uL Monocytes # 1.0 (0-1.0) k/uL Eosinophils # 0.1 (0-0.7) k/uL Basophils # 0.0 (0-0.2) k/uL Sodium 135 L (137-145) mmol/L Potassium 3.2 L (3.5-5.1) mmol/L Chloride 100 (98-107) mmol/L Carbon Dioxide 33 H (22-30) mmol/L Anion Gap 2 mmol/L BUN 33 H (7-17) mg/dL Creatinine 0.91 (0.52-1.04) mg/dL Est GFR (CKD-EPI)AfAm 68 (>60 ml/min/1.73 sqM) Est GFR (CKD-EPI)NonAf 59 (>60 ml/min/1.73 sqM) Glucose 131 H (74-99) mg/dL Calcium 9.9 (8.4-10.2) mg/dL Total Bilirubin 0.4 (0.2-1.3) mg/dL AST 20 (14-36) U/L ALT 27 (4-34) U/L Alkaline Phosphatase 40 (38-126) U/L Total Protein 6.5 (6.3-8.2) g/dL Albumin 3.8 (3.5-5.0) g/dL Lipase 65 (23-300) U/L Urine Color Colorless Urine Appearance Cloudy H (Clear) Urine pH 8.5 H (5.0-8.0) Ur Specific [place] 1.010 (1.001-1.035) Urine Protein Negative (Negative) Urine Glucose (UA) Negative (Negative) Urine Ketones Negative (Negative) Urine Blood Negative (Negative) Urine Nitrite Negative (Negative) Urine Bilirubin Negative (Negative) Urine Urobilinogen <2.0 (<2.0) mg/dL Ur Leukocyte Esterase Negative (Negative) Urine RBC 2 (0-5) /hpf Urine WBC 1 (0-5) /hpf Ur Squamous Epith Cells <1 (0-4) /hpf Amorphous Sediment Few H (None) /hpf Hyaline Casts 4 H (0-2) /lpf Disposition Clinical Impression: Left flank pain, Sacroiliitis Disposition: HOME SELF-CARE Condition: Good Instructions (If sedation given, give patient instructions): Acute Low Back Pain (ED) Additional Instructions: Every disease is a spectrum and a small chance still exists that a serious condition could develop, for this reason, please monitor yourself closely for new, changing or worsening symptoms, pain that you cannot control at home, blood in your urine, burning with peeing, confusion, fever, new or severe abdominal pain, inability to tolerate/keep down fluids or your medications, inability to follow up with outpatient providers as instructed and should you experience these symptoms or should you have any further concerns for your wellbeing please return to the ED or call 911 immediately. Your pain can be treated with ibuprofen and acetaminophen. You can take up to 400-600 mg of ibuprofen (Advil, Motrin) 3 times daily (every 8 hours) but can also use lower doses if this relieves your pain. Some people prefer naproxen (Aleve, Naprosyn) which can be taken in doses of 500 mg up to twice a day. Do not take both of these medicines together, and do not combine either with ketorolac (Toradol), meloxicam (Mobic), or indomethacin (Tivorbex). Some people can develop stomach discomfort with higher doses of either ibuprofen or naproxen, if this develops decrease your dose or stop taking it. If you need to take this dose daily for more than a week, please schedule an appointment for re-evaluation with your PCP. Please take these medications with food. Of note, please only take ibuprofen/motrin up to three times a day for up to 3 days in order to prevent injury to your kidneys. Please follow up with your PCP in 3 days regarding recheck of pain, direction on continuation of NSAIDS and to discuss recheck of kidney function. You can take up to 1000 mg of acetaminophen (Tylenol) every 6 hours. Be careful as this is included in some medicines like Nyquil, Stearns, Percocet, Vicodin, STANBACK, Goody's Powders, and Excedrin. You can also use lidocaine patches for topical pain. You can purchase 4% patches over the counter at most drug stores. These can be helpful for pain from your muscles or bones. PLEASE call your primary care physician as soon as possible to arrange / discuss plan for followup appointment. Appointment in the next 1-3 days is strongly encouraged if possible. PLEASE let us know here before you leave if there is anything further we can do to be of any assistance. Take care and feel Better! Is patient prescribed a controlled substance at d/c from ED?: No Referrals: Luis Eduardo Villalba [Primary Care Provider] - 1-2 days
[2024-03-11 03:19] LABS: Amorphous Sediment,Urine Few /hpf; Appearance,Urine Cloudy (Clear); Bilirubin,Urine Negative (Negative); Blood,Urine Negative (Negative); Color,Urine Colorless; Glucose,Urine (UA) Negative (Negative); Hyaline Casts,Urine 4 /lpf (0-2); Ketones,Urine Negative (Negative); Leukocyte Esterase,Urine Negative (Negative); Nitrite,Urine Negative (Negative); PH, Urine 8.5 (5.0-8.0); Protein,Urine Negative (Negative); RBC,Urine 2 /hpf (0-5); Squamous Epithelial Cell,Urine <1 /hpf (0-4); Urobilinogen,Urine <2.0 mg/dL (<2.0); WBC,Urine 1 /hpf (0-5)
[2024-03-11] MEDS: KETOROLAC 15 MG/ML 1 ML VIAL IVP STA (03:28)
[2024-03-11] MEDS: ACETAMINOPHEN TAB 500 MG TAB PO STA (03:29)
[2024-03-11] MEDS: SODIUM CHLORIDE 0.9% 1,000 ML IV STA (03:31)
[2024-03-11 03:44] LABS: Basophils % (A) 0 %; Eosinophils # (A) 0.1 k/uL (0-0.7); Eosinophils % (A) 1 %; HCT 32.2 % (34.0-46.0); HGB 10.9 gm/dL (11.4-16.0); Lymphocytes # (A) 2.2 k/uL (1.0-4.8); Lymphocytes % (A) 16 %; MCH 32.1 pg (25.0-35.0); MCHC 33.9 g/dL (31.0-37.0); MCV 94.7 fL (80.0-100.0); Mean Platelet Volume 7.5; Monocytes % (A) 8 %; Neutrophils # (A) 10.1 k/uL (1.3-7.7); Neutrophils % (A) 74 %; Platelet Count 293 k/uL (150-450); RDW 12.2 % (11.5-15.5); WBC 13.6 k/uL (3.8-10.6)
[2024-03-11 04:01] LABS: ALT 27 U/L (4-34); AST 20 U/L (14-36); African American GFR (CKD) 68 (>60 ml/min/1.73 sqM); Albumin 3.8 g/dL (3.5-5.0); Alkaline Phosphatase 40 U/L (38-126); Anion Gap 2 mmol/L; Blood Urea Nitrogen 33 mg/dL (7-17); Calcium 9.9 mg/dL (8.4-10.2); Carbon Dioxide 33 mmol/L (22-30); Chloride 100 mmol/L (98-107); Glucose 131 mg/dL (74-99); Lipase 65 U/L (23-300); Non-African American GFR(CKD) 59 (>60 ml/min/1.73 sqM); Potassium 3.2 mmol/L (3.5-5.1); Sodium 135 mmol/L (137-145); Total Bilirubin 0.4 mg/dL (0.2-1.3); Total Protein 6.5 g/dL (6.3-8.2)
[2024-03-11 04:02] VITALS: RESP 18
[2024-03-11] MEDS: POTASSIUM BICARBONATE/CIT AC 20 MEQ TABLET.EFF PO ONE (05:28)
--- NOTE | 2024-03-11 05:30 | CT ---
EXAM: CT Angiography Abdomen and Pelvis Without and With Intravenous Contrast CLINICAL HISTORY: left flank pain, cons. stone vs renal artery patho TECHNIQUE: Axial computed tomographic angiography images of the abdomen and pelvis without and with intravenous contrast. CTDI is 75.28 mGy and DLP is 935. 4 mGy-cm. This CT exam was performed using one or more of the following dose reduction techniques: automated exposure control, adjustment of the mA and/or kV according to patient size, and/or use of iterative reconstruction technique. MIP reconstructed images were created and reviewed. Coronal and sagittal reformatted images were created and reviewed.[id number] images COMPARISON: 10/24/2023 FINDINGS: VASCULATURE: Aorta: Moderate amount of atherosclerotic calcifications. No abdominal aortic aneurysm. No dissection. Celiac trunk and mesenteric arteries: No acute findings. No occlusion or significant stenosis. Renal arteries: No acute findings. No occlusion or significant stenosis. Iliac arteries: No acute findings. No occlusion or significant stenosis. Lung bases: Minimal atelectasis in the visualized lung bases. ABDOMEN: Liver: Suspect fatty liver. Gallbladder and bile ducts: Unremarkable. No calcified stones. No ductal dilation. Pancreas: Unremarkable. No ductal dilation. No mass. Spleen: Unremarkable. No splenomegaly. Adrenals: Unremarkable. No mass. Kidneys and ureters: 14 millimeters from left renal cyst. No obstructing stones. No hydronephrosis. Stomach and bowel: Moderate colonic diverticulosis. Moderate amount of inspissated stool throughout the colon. No obstruction. No mucosal thickening. PELVIS: Appendix: Normal appendix. Bladder: Unremarkable. No stones. No mass. Reproductive: Unremarkable as visualized. ABDOMEN and PELVIS: Intraperitoneal space: Unremarkable. No significant fluid collection. No free air. Bones/joints: Osteopenia. Moderate degenerative changes. No acute fracture. No dislocation. Soft tissues: Unremarkable. Lymph nodes: Unremarkable. No enlarged lymph nodes. IMPRESSION: Renal arteries are patent. No acute findings. No obstructive uropathy or stone in the collecting system
[2024-03-11 06:33] VITALS: BP 130/61; PULSE 45
== END 2024-03-11 06:10 | disposition home or self-care (01) ==
LOC: EC 02:30
DX: M46.1 Sacroiliitis, not elsewhere classified (principal); E78.5 Hyperlipidemia, unspecified; I10 Essential (primary) hypertension
CPT/HCPCS: 99284; 96374; 96361; 36415; 80053; 83690; 85025; 81001; 74174; J1885; Q9967